=== PATIENT | female | born 1960 | race Caucasian/White ===

== ENCOUNTER → 2017-04-13 | Outpatient (CLI) | payer MEDICAID ==
[~2017-04-13] MED LIST: ACLI400A IH; ALBU8.5H2 IH; ALPR.25T PO; ALPR0.5T PO; BUDE6HFA IH; CLOT15CR4 TOP; DESV50TA PO; DIAZ5TAB PO; FLC150T PO; GING1POW MC; GLIM2TAB PO; HYDR-1231 PO; HYDR-34 PO; HYDR118S10 PO; HYDR25TA4 PO; LISI10TA2 PO; LORA10TA7 PO; LSNP10T PO; METF-380 PO; PRD20T PO; PRED5TAB PO; RANI150C11 PO; RANI75TA30 PO; TMZP15C GT; VALA100033 PO
--- NOTE | 2017-04-13 19:41 | Diagnostic Imaging Report ---
Bilateral screening mammogram. The current study was also evaluated with a Computer Aided Detection (CAD) system. INDICATION: Screening. No current complaints stated on the questionnaire. COMPARISON: 03/03/2015 and other prior exams. FINDINGS: The breasts are composed of scattered fibroglandular densities. There are central bilateral subcentimeter breast nodules with circumscribed margins similar to prior exams seen. These are likely related to intramammary lymph nodes. Benign-appearing calcifications are seen minimally increased compared to prior exam. No developing mass or suspicious cluster of calcifications seen, however. IMPRESSION: No mammographic evidence of malignancy. ACR BI-RADS Category 2: Benign findings. Result letter will be mailed to the patient. Note: At least 10% of breast cancer is not imaged by mammography. Dictated by: Dictated on workstation # [id number]
== END ==
LOC: RAD 09:52
PROVIDERS: ATTEND Nurse Practitioner Family
DX: Z12.31 Encounter for screening mammogram for malignant neoplasm of breast (principal)
CPT/HCPCS: 77067

== ENCOUNTER 2017-08-23 12:16 | Outpatient (RCR) | payer MEDICAID ==
[2017-08-23 12:53] LABS: BASOPHILS # (AUTO) 0.1 10^3/uL (0.0-0.1); BASOPHILS % (AUTO) 1 % (0-10); EOSINOPHILS # (AUTO) 0.2 10^3/uL (0.0-0.3); EOSINOPHILS % (AUTO) 2 % (0-10); LYMPHOCYTES # (AUTO) 3.5 X 10^3 (1.0-4.0); LYMPHOCYTES % (AUTO) 32 % (12-44); MEAN CORPUSCULAR HEMOGLOBIN 30 PG (25-34); MEAN CORPUSCULAR HGB CONC 32 G/DL (32-36); MEAN CORPUSCULAR VOLUME 96 FL (80-99); MEAN PLATELET VOLUME 10.2 FL (7.4-10.4); MONOCYTES # (AUTO) 0.8 X 10^3 (0.0-1.0); MONOCYTES % (AUTO) 7 % (0-12); NEUTROPHILS # (AUTO) 6.5 X 10^3 (1.8-7.8); NEUTROPHILS % (AUTO) 59 % (42-75); PLATELET COUNT 312 10^3/uL (130-400); RED BLOOD COUNT 3.98 10^6/uL (4.35-5.85); RED CELL DISTRIBUTION WIDTH 13.8 % (10.0-14.5)
[2017-08-23 13:10] LABS: ALANINE AMINOTRANSFERASE 39 U/L (0-55); ALBUMIN 3.9 GM/DL (3.2-4.5); ANION GAP 9 MMOL/L (5-14); ASPARTATE AMINO TRANSFERASE 21 U/L (5-34); BILIRUBIN,TOTAL 0.2 MG/DL (0.1-1.0); BLOOD UREA NITROGEN 10 MG/DL (7-18); BUN/CREATININE RATIO 11; CALCIUM 9.7 MG/DL (8.5-10.1); CARBON DIOXIDE 28 MMOL/L (21-32); CHLORIDE 101 MMOL/L (98-107); CREATININE SERUM 0.89 MG/DL (0.60-1.30); GFR ESTIMATED > 60; GLUCOSE 325 MG/DL (70-105); POTASSIUM 3.8 MMOL/L (3.6-5.0); SODIUM 138 MMOL/L (135-145); TOTAL PROTEIN 7.2 GM/DL (6.4-8.2)
== END 2017-08-26 | disposition home or self-care (01) ==
LOC: ONC 12:16
PROVIDERS: ATTEND Internal Medicine Hematology & Oncology
DX: D72.829 Elevated white blood cell count, unspecified (principal); B19.20 Unspecified viral hepatitis C without hepatic coma; E66.01 Morbid (severe) obesity due to excess calories; Z68.42 Body mass index [BMI] 45.0-49.9, adult; I10 Essential (primary) hypertension; E11.9 Type 2 diabetes mellitus without complications; J44.9 Chronic obstructive pulmonary disease, unspecified; M19.91 Primary osteoarthritis, unspecified site; K21.9 Gastro-esophageal reflux disease without esophagitis; M79.7 Fibromyalgia; F41.9 Anxiety disorder, unspecified; F32.9 Major depressive disorder, single episode, unspecified; Z79.899 Other long term (current) drug therapy
CPT/HCPCS: 36415; 80053; 85025; 99214

== ENCOUNTER → 2017-09-14 | Outpatient (CLI) | payer MEDICAID ==
--- NOTE | 2017-09-14 16:33 | Diagnostic Imaging Report ---
Two views of the right hip. INDICATION: Right hip pain. FINDINGS: There is no fracture, dislocation or radiopaque foreign body. There is a kwaaqbha-vb-ovpnpn joint space narrowing with prominent osteophytes formation. Subchondral stenosis is also seen. The right SI joint demonstrates minimal degenerative changes. IMPRESSION: Vscyammm-gi-gsldelbo right hip osteoarthritis. Dictated by: Dictated on workstation # [id number]
--- NOTE | 2017-09-14 18:13 | Diagnostic Imaging Report ---
Three views of the right knee. INDICATION: Right knee pain. FINDINGS: Prominent osteophyte formation is seen in the three compartments but more prominent in the medial compartment. There is no significant joint space narrowing identified. No fracture or dislocation. No suprapatellar effusion is evident. IMPRESSION: Moderate degenerative changes. Dictated by: Dictated on workstation # [id number]
== END ==
LOC: RAD 15:26
DX: M16.11 Unilateral primary osteoarthritis, right hip (principal); M17.11 Unilateral primary osteoarthritis, right knee
CPT/HCPCS: 73502; 73562

== ENCOUNTER → 2018-04-17 | Outpatient (CLI) | payer MEDICAID ==
--- NOTE | 2018-04-17 19:00 | Diagnostic Imaging Report ---
INDICATION: Routine screening. Comparison is made with prior study from 04/13/2017 and 03/16/2016. 2-D and 3-D bilateral screening mammography was performed with CAD. The current study was also evaluated with a Computer Aided Detection (CAD) system. FINDINGS: Scattered fibroglandular densities are identified bilaterally. There are benign-appearing calcifications bilaterally. Circumscribed benign-appearing nodular densities appear stable bilaterally. No spiculated mass or malignant-appearing microcalcifications are seen. The axillae are unremarkable. IMPRESSION: No mammographic features suspicious for malignancy are identified. ACR BI-RADS Category 2: Benign findings. Result letter will be mailed to the patient. Note: At least 10% of breast cancer is not imaged by mammography. Dictated by: Dictated on workstation # [id number]
== END ==
LOC: RAD 08:02
PROVIDERS: ATTEND Nurse Practitioner Family
DX: Z12.31 Encounter for screening mammogram for malignant neoplasm of breast (principal)
CPT/HCPCS: 77067

== ENCOUNTER → 2019-03-27 | Outpatient (CLI) | payer MEDICARE, MEDICAID ==
[~2019-03-27] VITALS: Ht 160 cm; Wt 104.3 kg
[~2019-03-27] MED LIST changes: +BUDE10.2 IH; +DIAZ2TAB PO; +HYDR-3812 PO; +LISI40TA PO; +METF-399 PO; +PANT40TA2 PO; +RT-ALBUINH IH
== END | disposition home or self-care (01) ==
LOC: PREOP 05:57
PROVIDERS: ATTEND Surgery
DX: Z01.818 Encounter for other preprocedural examination (principal)

== ENCOUNTER 2019-03-29 08:55 | Day surgery (SDC) | payer MEDICARE, MEDICAID ==
[~2019-03-29] VITALS: Ht 160 cm; Wt 104.3 kg
[~2019-03-29 08:55] MED LIST changes: -PANT40TA2 PO
--- OUTSIDE RECORDS SUMMARY | 2019-03-29 08:59 | XMS REPORT ---
Author Author Migration, Doctor Organization [facility] Address Unknown Phone Unavailable Care Team Providers Care Armored Car Driver Name Role Phone Migration, Doctor Unavailable Unavailable PROBLEMS Type Condition ICD9-CM Code [id number] Code Onset Dates Condition Status SNOMED Code Problem Other specified counseling V65.49 Active 636633225 Problem Unspecified breast screening V76.10 Active 751774737 Problem Routine gynecological examination V72.31 Active [id number] Problem Counseling on substance use and abuse V65.42 Active 106746291 Problem Urinary tract infection, site not specified 599.0 Active 77849714 Problem Other specified symptom associated with female genital organs 625.8 Active 744710435 Problem Cough 786.2 Active 85926088 Problem Abdominal pain, unspecified site 789.00 Active 58983406 Problem Pain in joint, site unspecified 719.40 Active 10844423 Problem Pain in joint, lower leg 719.46 Active 980658170 Problem Dyschromia, unspecified 709.00 Active 1533371 Problem Generalized osteoarthrosis, unspecified site 715.00 Active 850322961 Problem Unspecified symptom associated with female genital organs 625.9 Active 330038870 Problem Effusion of joint, other specified site 719.08 Active 137002733 Problem Blood in stool 578.1 Active 238354279 Problem Acute pharyngitis 462 Active 036139323 Problem Acute sinusitis, unspecified 461.9 Active 77323668 Problem Candidiasis of vulva and vagina 112.1 Active 31026534 Problem Tear of medial cartilage or meniscus of knee, current 836.0 Active 061034304 Problem Chronic hepatitis C without mention of hepatic coma 070.54 Active 303482386 Problem Other, multiple, and unspecified sites, insect bite, nonvenomous, without mention of infection 919.4 Active 280429067 Problem Elevated blood pressure reading without diagnosis of hypertension 796.2 Active 166567006 Problem External hemorrhoids without mention of complication 455.3 Active 85608252 Problem Essential hypertension, malignant 401.0 Active 60218958 Problem Unspecified otalgia 388.70 Active 56374555 Problem Dysmetabolic Syndrome X 277.7 Active 758305939 ALLERGIES No Information ENCOUNTERS Encounter Location Date Diagnosis [facility] [id number] [place] [address]853- 6833 Apr, [facility] [id number] [place] [address] 32208- 7884 Feb, [facility] [address] [address]- [address] Feb, [facility] [id number] [place] [address] 63722- 2927 Nov, [facility] [id number] [place] [address] 28649- 5200 Nov, [facility] [id number] [place] [address] 76447- 3889 Oct, [facility] [id number] [place] [address] 27948- 8815 Oct, [facility] [id number] [place] [address] 54515- 8397 Sep, [facility] [id number] [place] [address] 55352- 6620 Sep, [facility] [id number] [place] [address] 96661- 6883 Aug, [facility] [id number] [place] [address] 60838- 6375 Aug, [facility] [id number] [place] [address] 45945- 0450 Aug, [facility] [id number] [place] [address] 17645- 1959 Aug, [facility] [id number] [place] [address] 33752- 8771 Aug, [facility] [id number] [place] [address] 86476- 6058 Aug, [facility] [place] [facility] [address] [id number] [place] [address] 7193 Jun, [facility] [place] [facility] [address] [id number] [place] [address]- 6091 Jun, [facility] [place] [facility] [address] [id number] [place] [address]- 1542 Jun, [facility] [place] [facility] [address] [id number] [place] [address]- 9449 Jun, [facility] [place] [facility] [address] [id number] [place] [address]- 5751 Jun, [facility] [place] [facility] [address] [id number] [place] [address]- 7726 May, [facility] [place] [facility] [address] [id number] [place] [address]- 4437 May, [facility] [place] [facility] [address] [id number] [place] [address]- 2771 May, [facility] [place] [facility] [address] [id number] [place] [address]- 0770 May, [facility] [place] [facility] [address] [id number] [place] [address]- 1321 May, [facility] [place] [facility] [address] [id number] [place] [address]- 0772 May, [facility] [place] [facility] [address] [id number] [place] [address]- 0238 May, [facility] [place] [facility] [address] [id number] [place] [address]- 1192 May, [facility] [place] [facility] [address] [id number] [place] [address]- 3603 May, [facility] [place] [facility] [address] [id number] [place] [address]- 3887 May, [facility] [place] [facility] [address] [id number] [place] [address]- 1496 May, [facility] [address] [id number] [place] [address]- 0811 May, [facility] [place] [facility] [address] [id number] [place] [address]- 5415 May, [facility] [place] [facility] [address] [id number] [place] [address]- 9969 May, [facility] [place] [facility] [address] [id number] [place] [address]- 7291 Apr, [facility] [place] [facility] [address] [id number] [place] [address]- 3853 Apr, [facility] [place] [facility] [address] [id number] [place] [address]- 2538 Apr, [facility] [address] [id number] [place] [address]- 4219 Apr, [facility] [address] [id number] [place] [address]- 8160 March, [facility] [place] [facility] [address] [id number] [place] [address]- 0317 March, [facility] [address] [id number] [place] [address]- 3977 March, [facility] [place] [facility] [address] [id number] [place] [address]- 1713 March, [facility] [place] [facility] [address] [id number] [place] [address]- 7466 March, [facility] [place] [facility] [address] [id number] [place] [address]- 5537 March, [facility] [place] [facility] [address] [id number] [place] [address]- 9114 March, [facility] [place] [facility] [address] [id number] [place] [address]- 9475 March, [facility] [address] [id number] [place] [address]- 5753 March, [facility] [place] [facility] [address] [id number] [place] [address]- 3411 March, [facility] [place] [facility] [address] [id number] [place] [address]- 8872 March, [facility] [place] [facility] [address] [id number] [place] [address]- 9325 March, [facility] [place] [facility] [address] [id number] [place] [address] March, [facility] [place] [facility] [address] [id number] [place] [address]- 3337 March, [facility] [place] [facility] [address] [id number] [place] [address]- 8920 Feb, [facility] [place] [facility] [address] [id number] [place] [address]- 2944 Feb, [facility] [place] [facility] [address] [id number] [place] [address]- 6421 Feb, [facility] [place] [facility] [address] [id number] [place] [address]- 9533 Feb, [facility] [place] [facility] [address] [id number] [place] [address]- 0325 Feb, [facility] [place] [facility] [address] [id number] [place] [address]- 4107 Feb, [facility] [place] [facility] [address] [id number] [place] [address]- 6317 Jan, [facility] [place] [facility] [address] [id number] [place] [address] Jan, [facility] [place] [facility] [address] [id number] [place] [address]- 0230 Jan, [facility] [place] [facility] [address] [id number] [place] [address]- 8735 Jan, [facility] [place] [facility] [address] [id number] [place] [address]- 1642 Jan, [facility] [place] [facility] [address] [facility] [id number] [place] [address]- 4811 Jan, [facility] [place] [facility] [address] [facility] [id number] [place] [address]- 4780 Jan, [facility] [place] [facility] [address] [id number] [place] [address]- 1828 Jan, [facility] [place] [facility] [address] [id number] [place] [address]- 1591 Dec, [facility] [place] [facility] [address] [facility] [id number] [place] [address]- 2612 Dec, [facility] [place] [facility] [address] [facility] [id number] [place] [address]- 7103 Dec, [facility] [place] [facility] [address] [facility] [id number] [place] [address]- 8504 Dec, [facility] [place] [facility] [address] [facility] [id number] [place] [address]- 5199 Dec, [facility] [place] [facility] [address] [facility] [id number] [place] [address]- 8162 Dec, [facility] [place] [facility] [address] [facility] [id number] [place] [address]- 3700 Dec, [facility] [place] [facility] [address] [facility] [id number] [place] [address]- 2092 Dec, [facility] [place] [facility] [address] [facility] [id number] [place] [address]- 4821 Dec, [facility] [place] [facility] [address] [facility] [id number] [place] [address]- 0737 Dec, [facility] [place] [facility] [address] [facility] [id number] [place] [address]- 3628 Dec, [facility] [place] [facility] [address] [id number] [place] [address]- 6077 Dec, [facility] [place] [facility] [address] [id number] [place] [address]- 8977 Dec, [facility] [place] [facility] [address] [id number] [place] [address]- 8986 Nov, [facility] [place] [facility] [address] [id number] [place] [address]- 5513 Nov, [facility] [place] [facility] [address] [id number] [place] [address]- 3884 Nov, [facility] [place] [facility] [address] [id number] [place] [address]- 4739 Nov, [facility] [place] [facility] [address] [id number] [place] [address]- 8017 Nov, [facility] [place] [facility] [address] [id number] [place] [address]- 1723 Nov, [facility] [place] [facility] [address] [id number] [place] [address]- 0783 Nov, [facility] [place] [facility] [address] [id number] [place] [address]- 3845 Sep, [facility] [place] [facility] [address] [id number] [address]- 5638 Sep, [facility] [place] [facility] [address] [id number] [address]- 1689 Aug, [facility] [place] [facility] [address] [id number] [place] [address]- 8787 Aug, [facility] [place] [facility] [address] [id number] [place] [address]- 6204 Feb, [facility] [place] [facility] [address] [id number] [place] [address]- 0515 Dec, [facility] [place] [facility] [address] [id number] [address]- 6218 Dec, [facility] [id number] [address]- 8839 Nov, [facility] [id number] [address]- 5277 Sep, [facility] [id number] [address]- 6530 Sep, [facility] [id number] [address]- 9479 Aug, [facility] [id number] [place] [address] 47180- 1016 Aug, [facility] [address] [address]- 6624 March, [facility] [address] [address]- 9781 Aug, [facility] [address] [address]- 0142 Aug, IMMUNIZATIONS No Known Immunizations SOCIAL HISTORY Never Assessed REASON FOR VISIT EMR[place] [place]AN OF CARE VITAL SIGNS MEDICATIONS Unknown Medications RESULTS No Results PROCEDURES No Known procedures INSTRUCTIONS MEDICATIONS ADMINISTERED No Known Medications
--- OUTSIDE RECORDS SUMMARY | 2019-03-29 08:59 | XMS REPORT ---
Author Author Migration, Doctor Organization [facility] Address Unknown Phone Unavailable Care Team Providers Care Rental Coordinator Name Role Phone Migration, Doctor Unavailable Unavailable PROBLEMS Type Condition ICD9-CM Code SZV69-HQ Code Onset Dates Condition Status SNOMED Code Problem Other specified counseling V65.49 Active 622574603 Problem Unspecified breast screening V76.10 Active 562467226 Problem Routine gynecological examination V72.31 Active [id number] Problem Counseling on substance use and abuse V65.42 Active 775246066 Problem Urinary tract infection, site not specified 599.0 Active 69619010 Problem Other specified symptom associated with female genital organs 625.8 Active 509535036 Problem Cough 786.2 Active 19383309 Problem Abdominal pain, unspecified site 789.00 Active 14536348 Problem Pain in joint, site unspecified 719.40 Active 60571106 Problem Pain in joint, lower leg 719.46 Active 314400922 Problem Dyschromia, unspecified 709.00 Active 1489042 Problem Generalized osteoarthrosis, unspecified site 715.00 Active 921315822 Problem Unspecified symptom associated with female genital organs 625.9 Active 657667423 Problem Effusion of joint, other specified site 719.08 Active 760531850 Problem Blood in stool 578.1 Active 368470590 Problem Acute pharyngitis 462 Active 433607686 Problem Acute sinusitis, unspecified 461.9 Active 45748423 Problem Candidiasis of vulva and vagina 112.1 Active 60389726 Problem Tear of medial cartilage or meniscus of knee, current 836.0 Active 378201607 Problem Chronic hepatitis C without mention of hepatic coma 070.54 Active 584165656 Problem Other, multiple, and unspecified sites, insect bite, nonvenomous, without mention of infection 919.4 Active 809528800 Problem Elevated blood pressure reading without diagnosis of hypertension 796.2 Active 666321371 Problem External hemorrhoids without mention of complication 455.3 Active 32853849 Problem Essential hypertension, malignant 401.0 Active 76017088 Problem Unspecified otalgia 388.70 Active 39797399 Problem Dysmetabolic Syndrome X 277.7 Active 104509797 ALLERGIES No Information ENCOUNTERS Encounter Location Date Diagnosis [facility] [id number] [place] [address] 34905- 9774 Apr, [facility] [id number] [place] [address] 86543- 4939 Feb, [facility] [address] [address]- 6817 Feb, [facility] [id number] [place] [address] 19305- 1900 Nov, [facility] [id number] [place] [address] 60308- 1044 Nov, [facility] [id number] [place] [address] 08928- 7957 Oct, [facility] [id number] [place] [address] 04141- 7007 Oct, [facility] [id number] [place] [address] 34599- 8334 Sep, [facility] [id number] [place] [address] 70808- 1445 Sep, [facility] [id number] [place] [address] 74894- 6384 Aug, [facility] [id number] [place] [address] 45509- 0555 Aug, [facility] [id number] [place] [address] 05062- 7929 Aug, [facility] [id number] [place] [address] 38858- 3899 Aug, [facility] [id number] [place] [address] 99233- 9157 Aug, [facility] [id number] [place] [address] 00707- 2651 Aug, [facility] [place] [facility] [address] [id number] [place] [address] 7321 Jun, [facility] [place] [facility] [address] [id number] [place] [address] 3433 Jun, [facility] [place] [facility] [address] [id number] [place] [address]- 4500 Jun, [facility] [place] [facility] [address] [id number] [place] [address]- 8238 Jun, [facility] [place] [facility] [address] [id number] [place] [address]- 4080 Jun, [facility] [place] [facility] [address] [id number] [place] [address]- 2023 May, [facility] [place] [facility] [address] [id number] [place] [address]- 4735 May, [facility] [place] [facility] [address] [id number] [place] [address]- 6482 May, [facility] [place] [facility] [address] [id number] [place] [address]- 4923 May, [facility] [place] [facility] [address] [id number] [place] [address]- 6568 May, [facility] [place] [facility] [address] [id number] [place] [address]- 9461 May, [facility] [place] [facility] [address] [id number] [place] [address]- 4889 May, [facility] [place] [facility] [address] [id number] [place] [address]- 3083 May, [facility] [place] [facility] [address] [id number] [place] [address]- 2504 May, [facility] [place] [facility] [address] [id number] [place] [address]- 3235 May, [facility] [place] [facility] [address] [id number] [place] [address]- 5237 May, [facility] [address] [id number] [place] [address]- 0156 May, [facility] [place] [facility] [address] [id number] [place] [address]- 8943 May, [facility] [place] [facility] [address] [id number] [place] [address]- 2941 May, [facility] [place] [facility] [address] [id number] [place] [address]- 3101 Apr, [facility] [place] [facility] [address] [id number] [place] [address]- 3675 Apr, [facility] [place] [facility] [address] [id number] [place] [address]- 3887 Apr, [facility] [address] [id number] [place] [address]- 5047 Apr, [facility] [address] [id number] [place] [address]- 0789 March, [facility] [place] [facility] [address] [id number] [place] [address]- 2748 March, [facility] [address] [id number] [place] [address]- 6312 March, [facility] [place] [facility] [address] [id number] [place] [address]- 5174 March, [facility] [place] [facility] [address] [id number] [place] [address]- 9957 March, [facility] [place] [facility] [address] [id number] [place] [address]- 4143 March, [facility] [place] [facility] [address] [id number] [place] [address]- 8638 March, [facility] [place] [facility] [address] [id number] [place] [address]- 3026 March, [facility] [address] [id number] [place] [address]- 9097 March, [facility] [place] [facility] [address] [id number] [place] [address]- 8891 March, [facility] [place] [facility] [address] [id number] [place] [address]- 7435 March, [facility] [place] [facility] [address] [id number] [place] [address]- 5495 March, [facility] [place] [facility] [address] [id number] [place] [address] March, [facility] [place] [facility] [address] [id number] [place] [address]- 9346 March, [facility] [place] [facility] [address] [id number] [place] [address]- 8688 Feb, [facility] [place] [facility] [address] [id number] [place] [address]- 9807 Feb, [facility] [place] [facility] [address] [id number] [place] [address]- 3251 Feb, [facility] [place] [facility] [address] [id number] [place] [address]- 1867 Feb, [facility] [place] [facility] [address] [id number] [place] [address]- 4445 Feb, [facility] [place] [facility] [address] [id number] [place] [address]- 2764 Feb, [facility] [place] [facility] [address] [id number] [place] [address]- 2663 Jan, [facility] [place] [facility] [address] [id number] [place] 7966 Jan, [facility] [place] [facility] [address] [id number] [place] [address]- 0182 Jan, [facility] [place] [facility] [address] [id number] [place] [address]- 4403 Jan, [facility] [place] [facility] [address] [id number] [place] [address]- 6962 Jan, [facility] [place] [facility] [address] [facility] [id number] [place] [address]- 5962 Jan, [facility] [place] [facility] [address] [facility] [id number] [place] [address]- 9821 Jan, [facility] [place] [facility] [address] [id number] [place] [address]- 7607 Jan, [facility] [place] [facility] [address] [id number] [place] [address]- 8892 Dec, [facility] [place] [facility] [address] [facility] [id number] [place] [address]- 4518 Dec, [facility] [place] [facility] [address] [facility] [id number] [place] [address]- 1979 Dec, [facility] [place] [facility] [address] [facility] [id number] [place] [address]- 4544 Dec, [facility] [place] [facility] [address] [facility] [id number] [place] [address]- 9245 Dec, [facility] [place] [facility] [address] [facility] [id number] [place] [address]- 6990 Dec, [facility] [place] [facility] [address] [facility] [id number] [place] [address]- 9420 Dec, [facility] [place] [facility] [address] [facility] [id number] [place] [address]- 2727 Dec, [facility] [place] [facility] [address] [facility] [id number] [place] [address]- 9002 Dec, [facility] [place] [facility] [address] [facility] [id number] [place] [address]- 6372 Dec, [facility] [place] [facility] [address] [facility] [id number] [place] [address]- 1644 Dec, [facility] [place] [facility] [address] [id number] [place] [address]- 7189 Dec, [facility] [place] [facility] [address] [id number] [place] [address]- 9629 Dec, [facility] [place] [facility] [address] [id number] [place] [address]- 1253 Nov, [facility] [place] [facility] [address] [id number] [place] [address]- 6259 Nov, [facility] [place] [facility] [address] [id number] [place] [address]- 6585 Nov, [facility] [place] [facility] [address] [id number] [place] [address]- 8700 Nov, [facility] [place] [facility] [address] [id number] [place] [address]- 9019 Nov, [facility] [place] [facility] [address] [id number] [place] [address]- 4119 Nov, [facility] [place] [facility] [address] [id number] [place] [address]- 6747 Nov, [facility] [place] [facility] [address] [id number] [place] [address]- 2127 Sep, [facility] [place] [facility] [address] [id number] [address]- 7953 Sep, [facility] [place] [facility] [address] [id number], [place] [address]- 4827 Aug, [facility] [place] [facility] [address] [id number] [place] [address]- 7816 Aug, [facility] [place] [facility] [address] [id number] [place] [address]- 0291 Feb, [facility] [place] [facility] [address] [id number] [place] [address]- 3336 Dec, [facility] [place] [facility] [address] [id number] [address]- 7251 Dec, [facility] [id number] [address]- 7940 Nov, [facility] [id number] [address]- 3097 Sep, [facility] [id number] [address]- 5563 Sep, [facility] [id number] [address]- 7583 Aug, [facility] [id number] [place] [address] 26586- 8447 Aug, [facility] [id number] [address]- 5316 March, [facility] [id number] [address]- 6188 Aug, [facility] [address] [address]- 9905 Aug, IMMUNIZATIONS No Known Immunizations SOCIAL HISTORY Never Assessed REASON FOR VISIT EMR-[facility] [place] PLAN OF CARE VITAL SIGNS MEDICATIONS Unknown Medications RESULTS No Results PROCEDURES No Known procedures INSTRUCTIONS MEDICATIONS ADMINISTERED No Known Medications
--- OUTSIDE RECORDS SUMMARY | 2019-03-29 08:59 | XMS REPORT | Clinical Summary ---
Author Author [facility] Organization [facility] Address Unknown Phone Unavailable Care Team Providers Care Catalyst Supervisor Name Role Phone Darrell Duran MD Unavailable Luis Carlton MD PCP Pat Morfin RN Unavailable Unavailable Vivi Cunningham Unavailable Unavailable Source Comments Some departments are not documenting in the electronic medical record. If you do not see the information that you expected, contact Release of Information in the Health Information Management department at [phone] for further assistance in locating additional records.[facility] Allergies No Known Allergies Medications End Date Status Medication Sig Dispensed Refills Start Date Active diazepam (VALIUM) 5 mg Take 5 mg by 0 tablet mouth every 6 hours as needed for Anxiety. Active ondansetron (ZOFRAN) 8 mg Take 8 mg by 0 tablet mouth every 8 hours as needed for Nausea. Active montelukast (SINGULAIR) Take 10 mg by 0 10 mg tablet mouth at bedtime daily. Active lisinopril (PRINIVIL, Take 40 mg by 0 ZESTRIL) 40 mg tablet mouth daily. Active glimepiride (AMARYL) 4 mg Take 4 mg by 0 tablet mouth daily with breakfast. Active albuterol (VENTOLIN HFA, Inhale 2 0 PROAIR HFA) 90 Puffs by mcg/actuation inhaler mouth every 6 hours as needed for Wheezing. Active metFORMIN (GLUCOPHAGE) Take 1,000 mg 0 1,000 mg tablet by mouth twice daily with meals. Active ranitidine(+) (ZANTAC) Take 150 mg 0 150 mg tablet by mouth twice daily. Active BUDESONIDE/FORMOTEROL Inhale by 0 FUMARATE (SYMBICORT IN) mouth into the lungs. Active sofosbuvir-velpatasvir Take 1 tablet 28 tablet 2 06/11/201 (EPCLUSA) 400-100 mg by mouth 8 tablet daily. Take at the same time everyday. Active lactobacillus rhamnosus Take 1 0 GG (LACTOBACILLUS capsule by RHAMNOSUS (GG)) 15 mouth as billion cell cpSP capsule directed once. Active vitamin E 400 unit Take 400 0 capsule Units by mouth daily. Active oxyCODONE/acetaminophen Take 1 tablet 0 (PERCOCET; ENDOCET) by mouth 10/325 mg tablet every 6 hours as needed for Pain Active niacin (VITAMIN B3) 100 Take 100 mg 0 mg tablet by mouth daily. Take with food. Active hydroCHLOROthiazide Take 25 mg by 0 (HYDRODIURIL) 25 mg mouth every tablet morning. Active fluticasone (FLONASE) 50 Apply to 0 mcg/actuation nasal spray each nostril as directed daily. Shake bottle gently before using. Active tiotropium bromide Inhale 2 0 (SPIRIVA RESPIMAT) 1.25 puffs by mcg/actuation inhaler mouth into the lungs daily. Active Problems Problem Noted Date Type 2 diabetes mellitus Morbid obesity with BMI of 45.0-49.9, adult COPD (chronic obstructive pulmonary disease) Chronic hepatitis C Overview: Genotype 3 with F2/3 fibrosis based on elastography Social History Date Tobacco Use Types Packs/Day Years Used Former Smoker Cigarettes 0.3 20 Smokeless Tobacco: Never Used Alcohol Use Drinks/Week oz/Week Comments No 0 Standard 0.0 drinks or equivalent Sex Assigned at Date Recorded Not on file Industry Job Start Date Occupation Not on file Not on file Not on file Travel End Travel History Travel Start No recent travel history available. Last Filed Vital Signs Time Taken Vital Sign Reading 07/18/2018 1:45 PM CDT Blood Pressure 126/81 07/18/2018 1:45 PM CDT Pulse 111 07/18/2018 1:45 PM CDT Temperature 37.3 C (99.2 F) 07/18/2018 1:45 PM CDT Respiratory Rate 18 07/18/2018 1:45 PM CDT Oxygen Saturation 99% - Inhaled Oxygen - Concentration 07/18/2018 1:45 PM CDT Weight 111.1 kg (245 lb) 07/18/2018 1:45 PM CDT Height 160 cm (5' 3") 07/18/2018 1:45 PM CDT Body Mass Index 43.4 Plan of Treatment Health Maintenance Due Date Last Done Comments PHYSICAL (COMPREHENSIVE) 1967 EXAM HIV SCREENING 1975 DILATED EYE EXAM 1978 DTAP/TDAP VACCINES (1 - 1978 Tdap) FOOT EXAM 1978 HBA1C 1978 PNEUMONIA VACCINE (DM) 1978 CERVICAL CANCER SCREENING 1990 BREAST CANCER SCREENING 2000 COLORECTAL CANCER 2010 SCREENING SHINGLES RECOMBINANT 2010 VACCINE (1 of 2) INFLUENZA VACCINE 08/27/2019 09/18/2008, 09/17/2007, 10/27/2003 Results Not on filefrom Last 3 Months Insurance Type Payer Benefit Subscriber ID Effective Phone Address Plan / Dates Group Medicare MEDICARE MEDICARE xxxxxxxxxx 2018-P PART A AND resent B Medicaid [facility] MEDICAID [facility] xxxxxxxxxxx 2015-P COMMUNITY resent PLAN [place] Advance Directives Patient has advance care planning documents on file. For more information, please contact: [facility] [address] [place] [address]
--- OUTSIDE RECORDS SUMMARY | 2019-03-29 09:00 | XMS REPORT ---
Author Author Migration, Doctor Organization [facility] Address Unknown Phone Unavailable Care Team Providers Care Volunteer Services Assistant Name Role Phone Migration, Doctor Unavailable Unavailable PROBLEMS Type Condition ICD9-CM Code ODB72-OE Code Onset Dates Condition Status SNOMED Code Problem Other specified counseling V65.49 Active 805610800 Problem Unspecified breast screening V76.10 Active 357413970 Problem Routine gynecological examination V72.31 Active [id number] Problem Counseling on substance use and abuse V65.42 Active 300429180 Problem Urinary tract infection, site not specified 599.0 Active 28098378 Problem Other specified symptom associated with female genital organs 625.8 Active 635925885 Problem Cough 786.2 Active 36853414 Problem Abdominal pain, unspecified site 789.00 Active 50078353 Problem Pain in joint, site unspecified 719.40 Active 28246453 Problem Pain in joint, lower leg 719.46 Active 200331684 Problem Dyschromia, unspecified 709.00 Active 4887003 Problem Generalized osteoarthrosis, unspecified site 715.00 Active 388669240 Problem Unspecified symptom associated with female genital organs 625.9 Active 660685660 Problem Effusion of joint, other specified site 719.08 Active 654122887 Problem Blood in stool 578.1 Active 555907379 Problem Acute pharyngitis 462 Active 666485668 Problem Acute sinusitis, unspecified 461.9 Active 09081381 Problem Candidiasis of vulva and vagina 112.1 Active 19124189 Problem Tear of medial cartilage or meniscus of knee, current 836.0 Active 665801718 Problem Chronic hepatitis C without mention of hepatic coma 070.54 Active 785676820 Problem Other, multiple, and unspecified sites, insect bite, nonvenomous, without mention of infection 919.4 Active 311849866 Problem Elevated blood pressure reading without diagnosis of hypertension 796.2 Active 110833962 Problem External hemorrhoids without mention of complication 455.3 Active 81974852 Problem Essential hypertension, malignant 401.0 Active 62041253 Problem Unspecified otalgia 388.70 Active 35930176 Problem Dysmetabolic Syndrome X 277.7 Active 739751035 ALLERGIES No Information ENCOUNTERS Encounter Location Date Diagnosis [facility] [place] [id number] [place] [address] 78298- 9499 Apr, [facility] [place] [id number] [place] [address] 08232- 6396 Feb, [facility] [place] [address] [address]- [address] Feb, [facility] [place] [id number] [place] [address] 27349- 1729 Nov, [facility] [place] [id number] [place] [address] 35573- 3541 Nov, [facility] [place] [id number] [place] [address] 64253- 6672 Oct, [facility] [place] [id number] [place] [address] 17714- 8063 Oct, [facility] [place] [id number] [place] [address] 43743- 9658 Sep, [facility] [place] [id number] [place] [address] 45647- 8510 Sep, [facility] [place] [id number] [place] [address] 69308- 3887 Aug, [facility] [place] [id number] [place] [address] 51002- 8757 Aug, [facility] [place] [id number] [place] [address] 22946- 3480 Aug, [facility] [place] [id number] [place] [address] 97785- 1737 Aug, [facility] [place] [id number] [place] [address] 66151- 9144 Aug, [facility] [place] [id number] [place] [address] 87597- 8229 Aug, [facility] [place] [facility] [address] [id number] [place] [address] 3033 Jun, [facility] [place] [facility] [address] [id number] [place] [address]- 2772 Jun, [facility] [place] [facility] [address] [id number] [place] [address]- 0394 Jun, [facility] [place] [facility] [address] [id number] [place] [address]- 1659 Jun, [facility] [place] [facility] [address] [id number] [place] [address]- 9730 Jun, [facility] [place] [facility] [address] [id number] [place] [address]- 7116 May, [facility] [place] [facility] [address] [id number] [place] [address]- 4643 May, [facility] [place] [facility] [address] [id number] [place] [address]- 8877 May, [facility] [place] [facility] [address] [id number] [place] [address]- 3982 May, [facility] [place] [facility] [address] [id number] [place] [address]- 5868 May, [facility] [place] [facility] [address] [id number] [place] [address]- 7344 May, [facility] [place] [facility] [address] [id number] [place] [address]- 1217 May, [facility] [place] [facility] [address] [id number] [place] [address]- 3249 May, [facility] [place] [facility] [address] [id number] [place] [address]- 2138 May, [facility] [place] [facility] [address] [id number] [place] [address]- 3035 May, [facility] [place] [facility] [address] [id number] [place] [address]- 4143 May, [facility] [address] [id number] [place] [address]- 8274 May, [facility] [place] [facility] [address] [id number] [place] [address]- 1797 May, [facility] [place] [facility] [address] [id number] [place] [address]- 1197 May, [facility] [place] [facility] [address] [id number] [place] [address]- 2523 Apr, [facility] [place] [facility] [address] [id number] [place] [address]- 3903 Apr, [facility] [place] [facility] [address] [id number] [place] [address]- 6268 Apr, [facility] [address] [id number] [place] [address]- 8977 Apr, [facility] [address] [id number] [place] [address]- 7292 March, [facility] [place] [facility] [address] [id number] [place] [address]- 9898 March, [facility] [address] [id number] [place] [address]- 3922 March, [facility] [place] [facility] [address] [id number] [place] [address]- 1066 March, [facility] [place] [facility] [address] [id number] [place] [address]- 1066 March, [facility] [place] [facility] [address] [id number] [place] [address]- 1601 March, [facility] [place] [facility] [address] [id number] [place] [address]- 4746 March, [facility] [place] [facility] [address] [id number] [place] [address]- [address] March, [facility] [address] [id number] [place] [address]- 6828 March, [facility] [place] [facility] [address] [id number] [place] [address]- 9956 March, [facility] [place] [facility] [address] [id number] [place] [address]- 3479 March, [facility] [place] [facility] [address] [id number] [place] [address]- 9266 March, [facility] [place] [facility] [address] [id number] [place] [address] March, [facility] [place] [facility] [address] [id number] [place] [address]- 9243 March, [facility] [place] [facility] [address] [id number] [place] [address]- 8676 Feb, [facility] [place] [facility] [address] [id number] [place] [address]- 5419 Feb, [facility] [place] [facility] [address] [id number] [place] [address]- 9805 Feb, [facility] [place] [facility] [address] [id number] [place] [address]- 9473 Feb, [facility] [place] [facility] [address] [id number] [place] [address]- 2918 Feb, [facility] [place] [facility] [address] [id number] [place] [address]- 6883 Feb, [facility] [place] [facility] [address] [id number] [place] [address]- 9300 Jan, [facility] [place] [facility] [address] [id number] [place] [address] Jan, [facility] [place] [facility] [address] [id number] [place] [address]- 2677 Jan, [facility] [place] [facility] [address] [id number] [place] [address]- 7376 Jan, [facility] [place] [facility] [address] [id number] [place] [address]- 1462 Jan, [facility] [place] [facility] [address] [facility] [id number] [place] [address]- 3172 Jan, [facility] [place] [facility] [address] [facility] [id number] [place] [address]- 4481 Jan, [facility] [place] [facility] [address] [id number] [place] [address]- 0861 Jan, [facility] [place] [facility] [address] [id number] [place] [address]- 8038 Dec, [facility] [place] [facility] [address] [facility] [id number] [place] [address]- 6683 Dec, [facility] [place] [facility] [address] [facility] [id number] [place] [address]- 2143 Dec, [facility] [place] [facility] [address] [facility] [id number] [place] [address]- 1144 Dec, [facility] [place] [facility] [address] [facility] [id number] [place] [address]- 9198 Dec, [facility] [place] [facility] [address] [facility] [id number] [place] [address]- 0233 Dec, [facility] [place] [facility] [address] [facility] [id number] [place] [address]- 3896 Dec, [facility] [place] [facility] [address] [facility] [id number] [place] [address]- 2387 Dec, [facility] [place] [facility] [address] [facility] [id number] [place] [address]- 9306 Dec, [facility] [place] [facility] [address] [facility] [id number] [place] [address]- 3791 Dec, [facility] [place] [facility] [address] [facility] [id number] [place] [address]- 1175 Dec, [facility] [place] [facility] [address] [id number] [place] [address]- 3752 Dec, [facility] [place] [facility] [address] [id number] [place] [address]- 4399 Dec, [facility] [place] [facility] [address] [id number] [place] [address]- 2099 Nov, [facility] [place] [facility] [address] [id number] [place] [address]- 7221 Nov, [facility] [place] [facility] [address] [id number] [place] [address]- 2193 Nov, [facility] [place] [facility] [address] [id number] [place] [address]- 9401 Nov, [facility] [place] [facility] [address] [id number] [place] [address]- 7283 Nov, [facility] [place] [facility] [address] [id number] [place] [address]- 5852 Nov, [facility] [place] [facility] [address] [id number] [place] [address]- 8707 Nov, [facility] [place] [facility] [address] [id number] [place] [address]- 4244 Sep, [facility] [place] [facility] [address] [id number], [place] [address]- 7668 Sep, [facility] [place] [facility] [address] [id number], [place] [address]- 4657 Aug, [facility] [place] [facility] [address] [id number] [place] [address]- 4267 Aug, [facility] [place] [facility] [address] [id number] [place] [address]- 1405 Feb, [facility] [place] [facility] [address] [id number] [place] [address]- 0397 Dec, [facility] [place] [facility] [address] [id number] [address]- 1654 Dec, [facility] [place] [id number] [address] Nov, [facility] [place] [id number], [place] [address]- 7979 Sep, [facility] [place] [id number], [place] [address]- 0298 Sep, [facility] [place] [id number], [place] [address]- 9832 Aug, [facility] [place] [id number], [place] [address]- 6720 Aug, [facility] [place] [id number], [place] [address]- 3926 March, [facility] [place] [id number], [place] [address]- 3220 Aug, [facility] [place] [address] [id number], [place] [address]- 8064 Aug, IMMUNIZATIONS No Known Immunizations SOCIAL HISTORY Never Assessed REASON FOR VISIT [facility] PLAN OF CARE VITAL SIGNS MEDICATIONS Medication Instructions Dosage Frequency Start Date End Date Duration Status Clotrimazole 1 % 1 appful 1 time per day for 7 day(s) Dec, Active Acidophilus 175 mg 1 capsule by Oral route 2 times per day crush and mix in soft food Aug, Active Pristiq 50 mg take 1 tablet by Oral route 2 times per day March, Active Symbicort 160-4.5 mcg/actuation inhale 2 puffs by inhalation route 2 times per day in the morning and evening March, Active Glimepiride 2 mg take 1 tablet by Oral route 1 time per day Must keep appt for further refills Aug, Active Tudorza Pressair 400 mcg/actuation inhale 1 puff (400 mcg) by inhalation route every 12 hours March, Active Bactrim DS 800-160 mg 1 tablet by Oral route 2 times per day for 7 day(s) Sep, Active Lisinopril 10 mg take 1 tablet by Oral route 1 time per day Must keep appt for further refills Aug, Active Doxycycline Hyclate 100 mg 1 tablet by Oral route 2 times per day for 14 days Feb, Active Ranitidine HCl 150 mg take 1 tablet (150 mg) by oral route 2 times per day May, Active Azithromycin 250 mg 2 Tablet by Oral route on day 1 then take 1 daily for 4 days Dec, Active Xanax 0.5 mg take 1 tablet by Oral route 2 times per day March, Active Ambien 10 mg take 1 tablet by Oral route at bedtime 1 time per day (for female) Aug, Active Ketoconazole 2 % 1 Application by Po route 1 time per day for 10 days Jan, Active Dexilant 60 mg 1 capsule by Oral route 1 time per day May, Active Chlorhexidine Gluconate 4 % apply 1 Liquid by Topical route every 4 days Jun, Active metformin 1,000 mg take 1 tablet by Oral route with morning and evening meals 2 times per day Keep appt for further refills Aug, Active Albuterol Sulfate 90 mcg/actuation inhale 1 puff by inhalation route every 4-6 hours as needed Aug, Active RESULTS No Results PROCEDURES No Known procedures INSTRUCTIONS MEDICATIONS ADMINISTERED No Known Medications
--- OUTSIDE RECORDS SUMMARY | 2019-03-29 09:00 | XMS REPORT ---
Author Author Migration, Doctor Organization [facility] Address Unknown Phone Unavailable Care Team Providers Care Supervisor Building Maintenance Name Role Phone Migration, Doctor Unavailable Unavailable PROBLEMS Type Condition ICD9-CM Code [id number] Code Onset Dates Condition Status SNOMED Code Problem Other specified counseling V65.49 Active 903468920 Problem Unspecified breast screening V76.10 Active 256908583 Problem Routine gynecological examination V72.31 Active [id number] Problem Counseling on substance use and abuse V65.42 Active 215866301 Problem Urinary tract infection, site not specified 599.0 Active 44241377 Problem Other specified symptom associated with female genital organs 625.8 Active 093168367 Problem Cough 786.2 Active 99874114 Problem Abdominal pain, unspecified site 789.00 Active 69009598 Problem Pain in joint, site unspecified 719.40 Active 28248632 Problem Pain in joint, lower leg 719.46 Active 357842120 Problem Dyschromia, unspecified 709.00 Active 2816300 Problem Generalized osteoarthrosis, unspecified site 715.00 Active 210469733 Problem Unspecified symptom associated with female genital organs 625.9 Active 111866573 Problem Effusion of joint, other specified site 719.08 Active 389600220 Problem Blood in stool 578.1 Active 233057444 Problem Acute pharyngitis 462 Active 895213082 Problem Acute sinusitis, unspecified 461.9 Active 72265732 Problem Candidiasis of vulva and vagina 112.1 Active 94355033 Problem Tear of medial cartilage or meniscus of knee, current 836.0 Active 009740215 Problem Chronic hepatitis C without mention of hepatic coma 070.54 Active 350260390 Problem Other, multiple, and unspecified sites, insect bite, nonvenomous, without mention of infection 919.4 Active 086229243 Problem Elevated blood pressure reading without diagnosis of hypertension 796.2 Active 325389244 Problem External hemorrhoids without mention of complication 455.3 Active 93335131 Problem Essential hypertension, malignant 401.0 Active 84812079 Problem Unspecified otalgia 388.70 Active 17275818 Problem Dysmetabolic Syndrome X 277.7 Active 439152032 ALLERGIES No Information ENCOUNTERS Encounter Location Date Diagnosis [facility] [id number] [place] [address] 60821- 7918 Apr, [facility] [id number] [place] [address] 43128- 1128 Feb, [facility] [address] [address]- 00[address] Feb, [facility] [id number] [place] [address] 10227- 6349 Nov, [facility] [id number] [place] [address] 21717- 7162 Nov, [facility] [id number] [place] [address] 48863- 7274 Oct, [facility] [id number] [place] [address] 99717- 9043 Oct, [facility] [id number] [place] [address] 14663- 8936 Sep, [facility] [id number] [place] [address] 72595- 7913 Sep, [facility] [id number] [place] [address] 77764- 5232 Aug, [facility] [id number] [place] [address] 07833- 4279 Aug, [facility] [id number] [place] [address] 76757- 3061 Aug, [facility] [id number] [place] [address] 84732- 0089 Aug, [facility] [id number] [place] [address] 25635- 7539 Aug, [facility] [id number] [place] [address] 43526- 1814 Aug, [facility] [place] [facility] [address] [id number] [place] [address] 5631 Jun, [facility] [place] [facility] [address] [id number] [place] [address]- 1035 Jun, [facility] [place] [facility] [address] [id number] [place] [address]- 6402 Jun, [facility] [place] [facility] [address] [id number] [place] [address]- 2090 Jun, [facility] [place] [facility] [address] [id number] [place] [address]- 6334 Jun, [facility] [place] [facility] [address] [id number] [place] [address]- 8002 May, [facility] [place] [facility] [address] [id number] [place] [address]- 9343 May, [facility] [place] [facility] [address] [id number] [place] [address]- 4405 May, [facility] [place] [facility] [address] [id number] [place] [address]- 5718 May, [facility] [place] [facility] [address] [id number] [place] [address]- 6549 May, [facility] [place] [facility] [address] [id number] [place] [address]- 2938 May, [facility] [place] [facility] [address] [id number] [place] [address]- 8640 May, [facility] [place] [facility] [address] [id number] [place] [address]- 9108 May, [facility] [place] [facility] [address] [id number] [place] [address]- 9140 May, [facility] [place] [facility] [address] [id number] [place] [address]- 1185 May, [facility] [place] [facility] [address] [id number] [place] [address]- 8289 May, [facility] [address] [id number] [place] [address]- 1422 May, [facility] [place] [facility] [address] [id number] [place] [address]- 5036 May, [facility] [place] [facility] [address] [id number] [place] [address]- 8712 May, [facility] [place] [facility] [address] [id number] [place] [address]- 2381 Apr, [facility] [place] [facility] [address] [id number] [place] [address]- 5832 Apr, [facility] [place] [facility] [address] [id number] [place] [address]- 2610 Apr, [facility] [address] [id number] [place] [address]- 6977 Apr, [facility] [address] [id number] [place] [address]- 6412 March, [facility] [place] [facility] [address] [id number] [place] [address]- 7130 March, [facility] [address] [id number] [place] [address]- 4958 March, [facility] [place] [facility] [address] [id number] [place] [address]- 5223 March, [facility] [place] [facility] [address] [id number] [place] [address]- 9903 March, [facility] [place] [facility] [address] [id number] [place] [address]- 3813 March, [facility] [place] [facility] [address] [id number] [place] [address]- 4193 March, [facility] [place] [facility] [address] [id number] [place] [address]- 3131 March, [facility] [address] [id number] [place] [address]- 2915 March, [facility] [place] [facility] [address] [id number] [place] [address]- 6753 March, [facility] [place] [facility] [address] [id number] [place] [address]- 2873 March, [facility] [place] [facility] [address] [id number] [place] [address]- 2742 March, [facility] [place] [facility] [address] [id number] [place] [address] March, [facility] [place] [facility] [address] [id number] [place] [address]- 4057 March, [facility] [place] [facility] [address] [id number] [place] [address]- 1610 Feb, [facility] [place] [facility] [address] [id number] [place] [address]- 7813 Feb, [facility] [place] [facility] [address] [id number] [place] [address]- 4579 Feb, [facility] [place] [facility] [address] [id number] [place] [address]- 8942 Feb, [facility] [place] [facility] [address] [id number] [place] [address]- 9584 Feb, [facility] [place] [facility] [address] [id number] [place] [address]- 0706 Feb, [facility] [place] [facility] [address] [id number] [place] [address]- 3855 Jan, [facility] [place] [facility] [address] [id number] [place] [address]441 Jan, [facility] [place] [facility] [address] [id number] [place] [address]- 4952 Jan, [facility] [place] [facility] [address] [id number] [place] [address]- 5836 Jan, [facility] [place] [facility] [address] [id number] [place] [address]- 5188 Jan, [facility] [place] [facility] [address] [facility] [id number] [place] [address]- 9006 Jan, [facility] [place] [facility] [address] [facility] [id number] [place] [address]- 3812 Jan, [facility] [place] [facility] [address] [id number] [place] [address]- 6185 Jan, [facility] [place] [facility] [address] [id number] [place] [address]- 8571 Dec, [facility] [place] [facility] [address] [facility] [id number] [place] [address]- 0420 Dec, [facility] [place] [facility] [address] [facility] [id number] [place] [address]- 6581 Dec, [facility] [place] [facility] [address] [facility] [id number] [place] [address]- 0000 Dec, [facility] [place] [facility] [address] [facility] [id number] [place] [address]- 6792 Dec, [facility] [place] [facility] [address] [facility] [id number] [place] [address]- 7893 Dec, [facility] [place] [facility] [address] [facility] [id number] [place] [address]- 9095 Dec, [facility] [place] [facility] [address] [facility] [id number] [place] [address]- 1049 Dec, [facility] [place] [facility] [address] [facility] [id number] [place] [address]- 7893 Dec, [facility] [place] [facility] [address] [facility] [id number] [place] [address]- 2597 Dec, [facility] [place] [facility] [address] [facility] [id number] [place] [address]- 1922 Dec, [facility] [place] [facility] [address] [id number] [place] [address]- 0515 Dec, [facility] [place] [facility] [address] [id number] [place] [address]- 8231 Dec, [facility] [place] [facility] [address] [id number] [place] [address]- 5447 Nov, [facility] [place] [facility] [address] [id number] [place] [address]- 8346 Nov, [facility] [place] [facility] [address] [id number] [place] [address]- 9067 Nov, [facility] [place] [facility] [address] [id number] [place] [address]- 5145 Nov, [facility] [place] [facility] [address] [id number] [place] [address]- 3722 Nov, [facility] [place] [facility] [address] [id number] [place] [address]- 8948 Nov, [facility] [place] [facility] [address] [id number] [place] [address]- 6305 Nov, [facility] [place] [facility] [address] [id number] [place] [address]- 5998 Sep, [facility] [place] [facility] [address] [id number] [address]- 9768 Sep, [facility] [place] [facility] [address] [id number] [address]- 9228 Aug, [facility] [place] [facility] [address] [id number] [place] [address]- 0674 Aug, [facility] [place] [facility] [address] [id number] [place] [address]- 6724 Feb, [facility] [place] [facility] [address] [id number] [place] [address]- 8745 Dec, [facility] [place] [facility] [address] [id number] [address]- 7984 Dec, [facility] [address] [address]- 0096 Nov, [facility] [address] [address]- 9525 Sep, [facility] [address] [address]- 0651 Sep, [facility] [address] [address]- 4509 Aug, [facility] [id number] [place] [address] 90552- 9274 Aug, [facility] [address] [address]- 8238 March, [facility] [address] [address]- 8411 Aug, [facility] [address] [address]- 3096 Aug, IMMUNIZATIONS No Known Immunizations SOCIAL HISTORY Never Assessed REASON FOR VISIT EMR-[facility] PLAN OF CARE VITAL SIGNS MEDICATIONS Unknown Medications RESULTS No Results PROCEDURES No Known procedures INSTRUCTIONS MEDICATIONS ADMINISTERED No Known Medications
--- OUTSIDE RECORDS SUMMARY | 2019-03-29 09:02 | XMS REPORT | Continuity of Care Document ---
Author Organization Unknown Address Unknown Allergies Active Description Code Type Severity Reaction Onset Reported/Identified Relationship to Patient Clinical Status Yes No Known Drug Allergies [id number] Drug Allergy Unknown N/A 04/24/2012 Medications There is no data. Problems Date Dx Coded Attending Type Code Diagnosis Diagnosed By 06/05/2008 041.19 STAPHYLOCOCCUS INFECTION IN CONDITIONS CLASSIFIED ELSEWHERE AND OF UNSPECIFIED SITE OTHER STAPHYLOCOCCUS 06/05/2008 CARLOS HAYES PELON K 041.19 STAPHYLOCOCCUS INFECTION IN CONDITIONS CLASSIFIED ELSEWHERE AND OF UNSPECIFIED SITE OTHER STAPHYLOCOCCUS 06/05/2008 CARLOS HAYES, PELON K 041.19 STAPHYLOCOCCUS INFECTION IN CONDITIONS CLASSIFIED ELSEWHERE AND OF UNSPECIFIED SITE OTHER STAPHYLOCOCCUS 06/05/2008 MIGUELITO YANES APRNINA R 041.19 STAPHYLOCOCCUS INFECTION IN CONDITIONS CLASSIFIED ELSEWHERE AND OF UNSPECIFIED SITE OTHER STAPHYLOCOCCUS 06/05/2008 JOAQUÍN SCHWARTZ MAURO R 041.19 STAPHYLOCOCCUS INFECTION IN CONDITIONS CLASSIFIED ELSEWHERE AND OF UNSPECIFIED SITE OTHER STAPHYLOCOCCUS 06/05/2008 SOILA ALY APRN A 041.19 STAPHYLOCOCCUS INFECTION IN CONDITIONS CLASSIFIED ELSEWHERE AND OF UNSPECIFIED SITE OTHER STAPHYLOCOCCUS 06/05/2008 CARLOS HAYES PELON K 041.19 STAPHYLOCOCCUS INFECTION IN CONDITIONS CLASSIFIED ELSEWHERE AND OF UNSPECIFIED SITE OTHER STAPHYLOCOCCUS 06/05/2008 DANIELLE ALY APRNIDI A 041.19 STAPHYLOCOCCUS INFECTION IN CONDITIONS CLASSIFIED ELSEWHERE AND OF UNSPECIFIED SITE OTHER STAPHYLOCOCCUS 06/05/2008 CARLOS HAYES PELON K 041.19 STAPHYLOCOCCUS INFECTION IN CONDITIONS CLASSIFIED ELSEWHERE AND OF UNSPECIFIED SITE OTHER STAPHYLOCOCCUS 06/05/2008 CARLOS HAYES PELON K 041.19 STAPHYLOCOCCUS INFECTION IN CONDITIONS CLASSIFIED ELSEWHERE AND OF UNSPECIFIED SITE OTHER STAPHYLOCOCCUS 06/05/2008 MIGUELITO YANES APRNINA R 041.19 STAPHYLOCOCCUS INFECTION IN CONDITIONS CLASSIFIED ELSEWHERE AND OF UNSPECIFIED SITE OTHER STAPHYLOCOCCUS 06/05/2008 ALEXANDER ANGEL MD 041.19 STAPHYLOCOCCUS INFECTION IN CONDITIONS CLASSIFIED ELSEWHERE AND OF UNSPECIFIED SITE OTHER STAPHYLOCOCCUS 06/05/2008 GONZALEZ DO, PELON K 041.19 STAPHYLOCOCCUS INFECTION IN CONDITIONS CLASSIFIED ELSEWHERE AND OF UNSPECIFIED SITE OTHER STAPHYLOCOCCUS 06/05/2008 GONZALEZ DO, PELON K 041.19 STAPHYLOCOCCUS INFECTION IN CONDITIONS CLASSIFIED ELSEWHERE AND OF UNSPECIFIED SITE OTHER STAPHYLOCOCCUS 06/05/2008 JOAQUÍN RADIO ENGINEERING TEACHER, MAURO R 041.19 STAPHYLOCOCCUS INFECTION IN CONDITIONS CLASSIFIED ELSEWHERE AND OF UNSPECIFIED SITE OTHER STAPHYLOCOCCUS 06/05/2008 JERMAIN RADIO ENGINEERING TEACHER, SOILA A 041.19 STAPHYLOCOCCUS INFECTION IN CONDITIONS CLASSIFIED ELSEWHERE AND OF UNSPECIFIED SITE OTHER STAPHYLOCOCCUS 06/05/2008 JERMAIN RADIO ENGINEERING TEACHER, SOILA A 041.19 STAPHYLOCOCCUS INFECTION IN CONDITIONS CLASSIFIED ELSEWHERE AND OF UNSPECIFIED SITE OTHER STAPHYLOCOCCUS 06/05/2008 JOAQUÍN RADIO ENGINEERING TEACHER, MAURO R 041.19 STAPHYLOCOCCUS INFECTION IN CONDITIONS CLASSIFIED ELSEWHERE AND OF UNSPECIFIED SITE OTHER STAPHYLOCOCCUS 06/05/2008 JOAQUÍN RADIO ENGINEERING TEACHER, MAURO R 041.19 STAPHYLOCOCCUS INFECTION IN CONDITIONS CLASSIFIED ELSEWHERE AND OF UNSPECIFIED SITE OTHER STAPHYLOCOCCUS 06/05/2008 JOAQUÍN RADIO ENGINEERING TEACHER, MAURO R 041.19 STAPHYLOCOCCUS INFECTION IN CONDITIONS CLASSIFIED ELSEWHERE AND OF UNSPECIFIED SITE OTHER STAPHYLOCOCCUS 06/05/2008 JOAQUÍN RADIO ENGINEERING TEACHER, MAURO R 041.19 STAPHYLOCOCCUS INFECTION IN CONDITIONS CLASSIFIED ELSEWHERE AND OF UNSPECIFIED SITE OTHER STAPHYLOCOCCUS 06/05/2008 041.19 STAPHYLOCOCCUS INFECTION IN CONDITIONS CLASSIFIED ELSEWHERE AND OF UNSPECIFIED SITE OTHER STAPHYLOCOCCUS 08/29/2008 465.9 UPPER RESPIRATORY INFECTION 08/29/2008 GONZALEZ DO, PELON K 465.9 UPPER RESPIRATORY INFECTION 08/29/2008 GONZALEZ DO, PLEON K 465.9 UPPER RESPIRATORY INFECTION 08/29/2008 JOAQUÍN RADIO ENGINEERING TEACHER, MAURO R 465.9 UPPER RESPIRATORY INFECTION 08/29/2008 JOAQUÍN RADIO ENGINEERING TEACHER, MAURO R 465.9 UPPER RESPIRATORY INFECTION 08/29/2008 JERMAINDRE SCHWARTZ SOILA A 465.9 UPPER RESPIRATORY INFECTION 08/29/2008 GONZALEZ DO, PELON K 465.9 UPPER RESPIRATORY INFECTION 08/29/2008 JERMAIN RADIO ENGINEERING TEACHER SOILA A 465.9 UPPER RESPIRATORY INFECTION 08/29/2008 GONZALEZ DO, PELON K 465.9 UPPER RESPIRATORY INFECTION 08/29/2008 GONZALEZ DO, PELON K 465.9 UPPER RESPIRATORY INFECTION 08/29/2008 JOAQUÍN RADIO ENGINEERING TEACHER, MAURO R 465.9 UPPER RESPIRATORY INFECTION 08/29/2008 ALEXANDER ANGEL MD 465.9 UPPER RESPIRATORY INFECTION 08/29/2008 GONZALEZ DO, PELON K 465.9 UPPER RESPIRATORY INFECTION 08/29/2008 GONZALEZ DO, PELON K 465.9 UPPER RESPIRATORY INFECTION 08/29/2008 JOAQUÍN RADIO ENGINEERING TEACHER, MAURO R 465.9 UPPER RESPIRATORY INFECTION 08/29/2008 JERMAIN RADIO ENGINEERING TEACHER, SOILA A 465.9 UPPER RESPIRATORY INFECTION 08/29/2008 JERMAIN RADIO ENGINEERING TEACHER, SOILA A 465.9 UPPER RESPIRATORY INFECTION 08/29/2008 JOAQUÍN RADIO ENGINEERING TEACHER, MAURO R 465.9 UPPER RESPIRATORY INFECTION 08/29/2008 JOAQUÍN RADIO ENGINEERING TEACHER, MAURO R 465.9 UPPER RESPIRATORY INFECTION 08/29/2008 JOAQUÍN RADIO ENGINEERING TEACHER, MAURO R 465.9 UPPER RESPIRATORY INFECTION 08/29/2008 JOAQUÍN RADIO ENGINEERING TEACHER, MAURO R 465.9 UPPER RESPIRATORY INFECTION 08/29/2008 465.9 UPPER RESPIRATORY INFECTION 09/25/2008 401.1 HYPERTENSION, BENIGN ESSENTIAL 09/25/2008 786.50 CHEST PAIN 09/25/2008 GONZALEZ DO, PELON K 401.1 HYPERTENSION, BENIGN ESSENTIAL 09/25/2008 GONZALEZ DO, PELON K 786.50 CHEST PAIN 09/25/2008 GONZALEZ DO, PELON K 401.1 HYPERTENSION, BENIGN ESSENTIAL 09/25/2008 GONZALEZ DO, PELON K 786.50 CHEST PAIN 09/25/2008 JOAQUÍN RADIO ENGINEERING TEACHER, MAURO R 401.1 HYPERTENSION, BENIGN ESSENTIAL 09/25/2008 JOAQUÍN RADIO ENGINEERING TEACHER, MAURO R 786.50 CHEST PAIN 09/25/2008 JOAQUÍN RADIO ENGINEERING TEACHER, MAURO R 401.1 HYPERTENSION, BENIGN ESSENTIAL 09/25/2008 JOAQUÍN RADIO ENGINEERING TEACHER, MAURO R 786.50 CHEST PAIN 09/25/2008 JERMAIN RADIO ENGINEERING TEACHER, SOILA A 401.1 HYPERTENSION, BENIGN ESSENTIAL 09/25/2008 JERMAIN RADIO ENGINEERING TEACHER, SOILA A 786.50 CHEST PAIN 09/25/2008 GONZALEZ DO, PELON K 401.1 HYPERTENSION, BENIGN ESSENTIAL 09/25/2008 GONZALEZ DO, PELON K 786.50 CHEST PAIN 09/25/2008 JERMAIN RADIO ENGINEERING TEACHER, SOILA A 401.1 HYPERTENSION, BENIGN ESSENTIAL 09/25/2008 JERMAIN RADIO ENGINEERING TEACHER, SOILA A 786.50 CHEST PAIN 09/25/2008 GONZALEZ DO, PELON K 401.1 HYPERTENSION, BENIGN ESSENTIAL 09/25/2008 GONZALEZ DO, PELON K 786.50 CHEST PAIN 09/25/2008 GONZALEZ DO, PELON K 401.1 HYPERTENSION, BENIGN ESSENTIAL 09/25/2008 GONZALEZ DO, PELON K 786.50 CHEST PAIN 09/25/2008 JOAQUÍN RADIO ENGINEERING TEACHER, MAURO R 401.1 HYPERTENSION, BENIGN ESSENTIAL 09/25/2008 JOAQUÍN BEACHN, MAURO R 786.50 CHEST PAIN 09/25/2008 JEANNE GATES, ALEXANDER N 401.1 HYPERTENSION, BENIGN ESSENTIAL 09/25/2008 JEANNE GATES, ALEXANDER N 786.50 CHEST PAIN 09/25/2008 GONZALEZ DO, PELON K 401.1 HYPERTENSION, BENIGN ESSENTIAL 09/25/2008 GONZALEZ DO, PELON K 786.50 CHEST PAIN 09/25/2008 GONZALEZ DO, PELON K 401.1 HYPERTENSION, BENIGN ESSENTIAL 09/25/2008 GONZALEZ DO, PELON K 786.50 CHEST PAIN 09/25/2008 JOAQUÍN RADIO ENGINEERING TEACHER, MAURO R 401.1 HYPERTENSION, BENIGN ESSENTIAL 09/25/2008 JOAQUÍN RADIO ENGINEERING TEACHER, MAURO R 786.50 CHEST PAIN 09/25/2008 JERMAIN RADIO ENGINEERING TEACHER, SOILA A 401.1 HYPERTENSION, BENIGN ESSENTIAL 09/25/2008 JERMAIN RADIO ENGINEERING TEACHER, SOILA A 786.50 CHEST PAIN 09/25/2008 JERMAIN RADIO ENGINEERING TEACHER, SOILA A 401.1 HYPERTENSION, BENIGN ESSENTIAL 09/25/2008 JERMAIN RADIO ENGINEERING TEACHER, SOILA A 786.50 CHEST PAIN 09/25/2008 JOAQUÍN RADIO ENGINEERING TEACHER, MAURO R 401.1 HYPERTENSION, BENIGN ESSENTIAL 09/25/2008 JOAQUÍN RADIO ENGINEERING TEACHER, MAURO R 786.50 CHEST PAIN 09/25/2008 JOAQUÍN RADIO ENGINEERING TEACHER, MAURO R 401.1 HYPERTENSION, BENIGN ESSENTIAL 09/25/2008 JOAQUÍN RADIO ENGINEERING TEACHER, MAURO R 786.50 CHEST PAIN 09/25/2008 JOAQUÍN RADIO ENGINEERING TEACHER, MAURO R 401.1 HYPERTENSION, BENIGN ESSENTIAL 09/25/2008 JOAQUÍN RADIO ENGINEERING TEACHER, MAURO R 786.50 CHEST PAIN 09/25/2008 JOAQUÍN RADIO ENGINEERING TEACHER, MAURO R 401.1 HYPERTENSION, BENIGN ESSENTIAL 09/25/2008 JOAQUÍN RADIO ENGINEERING TEACHER, MAURO R 786.50 CHEST PAIN 09/25/2008 401.1 HYPERTENSION, BENIGN ESSENTIAL 09/25/2008 786.50 CHEST PAIN 02/02/2010 723.1 CERVICALGIA 02/02/2010 GONZALEZ DO, PELON K 723.1 CERVICALGIA 02/02/2010 GONZALEZ DO, PELON K 723.1 CERVICALGIA 02/02/2010 JOAQUÍN RADIO ENGINEERING TEACHER, MAURO R 723.1 CERVICALGIA 02/02/2010 JOAQUÍN RADIO ENGINEERING TEACHER, MAURO R 723.1 CERVICALGIA 02/02/2010 JERMAIN RADIO ENGINEERING TEACHER, SOILA A 723.1 CERVICALGIA 02/02/2010 GONZALEZ DO, PELON K 723.1 CERVICALGIA 02/02/2010 JERMAIN RADIO ENGINEERING TEACHER, SOILA A 723.1 CERVICALGIA 02/02/2010 GONZALEZ DO, PELON K 723.1 CERVICALGIA 02/02/2010 GONZALEZ DO, PELON K 723.1 CERVICALGIA 02/02/2010 JOAQUÍN RADIO ENGINEERING TEACHER, MAURO R 723.1 CERVICALGIA 02/02/2010 JEANNE GATES, ALEXANDER Centeno 723.1 CERVICALGIA 02/02/2010 GONZALEZ DO, PELON K 723.1 CERVICALGIA 02/02/2010 GONZALEZ DO, PELON K 723.1 CERVICALGIA 02/02/2010 JOAQUÍN RADIO ENGINEERING TEACHER, MAURO R 723.1 CERVICALGIA 02/02/2010 JERMAIN RADIO ENGINEERING TEACHER, SOILA A 723.1 CERVICALGIA 02/02/2010 JERMAIN RADIO ENGINEERING TEACHER, SOILA A 723.1 CERVICALGIA 02/02/2010 JOAQUÍN RADIO ENGINEERING TEACHER, MAURO R 723.1 CERVICALGIA 02/02/2010 JOAQUÍN RADIO ENGINEERING TEACHER, MAURO R 723.1 CERVICALGIA 02/02/2010 JOAQUÍN RADIO ENGINEERING TEACHER, MAURO R 723.1 CERVICALGIA 02/02/2010 JOAQUÍN RADIO ENGINEERING TEACHER, MAURO R 723.1 CERVICALGIA 02/02/2010 723.1 CERVICALGIA 04/10/2010 373.11 HORDEOLUM EXTERNUM 04/10/2010 GONZALEZ DO, PELON K 373.11 HORDEOLUM EXTERNUM 04/10/2010 GONZALEZ DO, PELON K 373.11 HORDEOLUM EXTERNUM 04/10/2010 JOAQUÍN RADIO ENGINEERING TEACHER, MAURO R 373.11 HORDEOLUM EXTERNUM 04/10/2010 JOAQUÍN RADIO ENGINEERING TEACHER, MAURO R 373.11 HORDEOLUM EXTERNUM 04/10/2010 JERMAIN RADIO ENGINEERING TEACHER, SOILA A 373.11 HORDEOLUM EXTERNUM 04/10/2010 GONZALEZ DO, PELON K 373.11 HORDEOLUM EXTERNUM 04/10/2010 JERMAIN RADIO ENGINEERING TEACHER, SOILA A 373.11 HORDEOLUM EXTERNUM 04/10/2010 GONZALEZ DO, PELON K 373.11 HORDEOLUM EXTERNUM 04/10/2010 GONZALEZ DO, PELON K 373.11 HORDEOLUM EXTERNUM 04/10/2010 JOAQUÍN RADIO ENGINEERING TEACHER, MAURO R 373.11 HORDEOLUM EXTERNUM 04/10/2010 ALEXANDER ANGEL MD N 373.11 HORDEOLUM EXTERNUM 04/10/2010 GONZALEZ DO, PELON K 373.11 HORDEOLUM EXTERNUM 04/10/2010 GONZALEZ DO, PELON K 373.11 HORDEOLUM EXTERNUM 04/10/2010 JOAQUÍN BEACHN, MAURO R 373.11 HORDEOLUM EXTERNUM 04/10/2010 JERMAIN RADIO ENGINEERING TEACHER, SOILA A 373.11 HORDEOLUM EXTERNUM 04/10/2010 JERMAIN BEACHN, SOILA A 373.11 HORDEOLUM EXTERNUM 04/10/2010 JOAQUÍN BEACHN, MAURO R 373.11 HORDEOLUM EXTERNUM 04/10/2010 JOAQUÍN BEACHN, MAURO R 373.11 HORDEOLUM EXTERNUM 04/10/2010 JOAQUÍN BEACHN, MAURO R 373.11 HORDEOLUM EXTERNUM 04/10/2010 JOAQUÍN SCHWARTZ, MAURO R 373.11 HORDEOLUM EXTERNUM 04/10/2010 373.11 HORDEOLUM EXTERNUM 10/17/2012 578.1 HEMATOCHEZIA 10/17/2012 599.0 URINARY TRACT INFECTION 10/17/2012 GONZALEZ DO, PELON K 578.1 HEMATOCHEZIA 10/17/2012 GONZALEZ DO, PELON K 599.0 URINARY TRACT INFECTION 10/17/2012 GONZALEZ DO, PELON K 578.1 HEMATOCHEZIA 10/17/2012 GONZALEZ DO, PELON K 599.0 URINARY TRACT INFECTION 10/17/2012 JOAQUÍN SCHWARTZ, MAURO R 578.1 HEMATOCHEZIA 10/17/2012 JOAQUÍN SCHWARTZ, MAURO R 599.0 URINARY TRACT INFECTION 10/17/2012 JOAQUÍN SCHWARTZ, MAURO R 578.1 HEMATOCHEZIA 10/17/2012 JOAQUÍN SCHWARTZ, MAURO R 599.0 URINARY TRACT INFECTION 10/17/2012 JERMAIN SCHWARTZ, SOILA A 578.1 HEMATOCHEZIA 10/17/2012 JERMAIN SCHWARTZ, SOILA A 599.0 URINARY TRACT INFECTION 10/17/2012 GONZALEZ DO, PELON K 578.1 HEMATOCHEZIA 10/17/2012 GONZALEZ DO, PELNO K 599.0 URINARY TRACT INFECTION 10/17/2012 SOILA ALY APRN A 578.1 HEMATOCHEZIA 10/17/2012 JERMAIN RADIO ENGINEERING TEACHER, SOILA A 599.0 URINARY TRACT INFECTION 10/17/2012 GONZALEZ DO, PELON K 578.1 HEMATOCHEZIA 10/17/2012 GONZALEZ DO, PELON K 599.0 URINARY TRACT INFECTION 10/17/2012 GONZALEZ DO, PELON K 578.1 HEMATOCHEZIA 10/17/2012 GONZALEZ DO, PELON K 599.0 URINARY TRACT INFECTION 10/17/2012 JOAQUÍN RADIO ENGINEERING TEACHER, MAURO R 578.1 HEMATOCHEZIA 10/17/2012 JOAQUÍN RADIO ENGINEERING TEACHER, MAURO R 599.0 URINARY TRACT INFECTION 10/17/2012 ALEXANDER ANGEL MD N 578.1 HEMATOCHEZIA 10/17/2012 ALEXANDER ANGEL MD N 599.0 URINARY TRACT INFECTION 10/17/2012 GONZALEZ DO, PELON K 578.1 HEMATOCHEZIA 10/17/2012 GONZALEZ DO, PELON K 599.0 URINARY TRACT INFECTION 10/17/2012 GONZALEZ DO, PELON K 578.1 HEMATOCHEZIA 10/17/2012 GONZALEZ DO, PELON K 599.0 URINARY TRACT INFECTION 10/17/2012 JOAQUÍN BEACHN, MAURO R 578.1 HEMATOCHEZIA 10/17/2012 JOAQUÍN BEACHN, MAURO R 599.0 URINARY TRACT INFECTION 10/17/2012 JERMAIN RADIO ENGINEERING TEACHER, SOILA A 578.1 HEMATOCHEZIA 10/17/2012 JERMAIN RADIO ENGINEERING TEACHER, SOILA A 599.0 URINARY TRACT INFECTION 10/17/2012 JERMAIN RADIO ENGINEERING TEACHER, SOILA A 578.1 HEMATOCHEZIA 10/17/2012 JERMAIN RADIO ENGINEERING TEACHER, SOILA A 599.0 URINARY TRACT INFECTION 10/17/2012 JOAQUÍN BEACHN, MAURO R 578.1 HEMATOCHEZIA 10/17/2012 JOAQUÍN BEACHN, MAURO R 599.0 URINARY TRACT INFECTION 10/17/2012 JOAQUÍN BEACHN, MAURO R 578.1 HEMATOCHEZIA 10/17/2012 JOAQUÍN RADIO ENGINEERING TEACHER, MAURO R 599.0 URINARY TRACT INFECTION 10/17/2012 JOAQUÍN BEACHN, MAURO R 578.1 HEMATOCHEZIA 10/17/2012 JOAQUÍN SCHWARTZ, MAURO R 599.0 URINARY TRACT INFECTION 10/17/2012 JOAQUÍN RADIO ENGINEERING TEACHER, MAURO R 578.1 HEMATOCHEZIA 10/17/2012 JOAQUÍN RADIO ENGINEERING TEACHER, MAURO R 599.0 URINARY TRACT INFECTION 10/17/2012 578.1 HEMATOCHEZIA 10/17/2012 599.0 URINARY TRACT INFECTION 12/25/2012 112.1 CANDIDIASIS VAGINAL 12/25/2012 GONZALEZ DO, PELON K 112.1 CANDIDIASIS VAGINAL 12/25/2012 GONZALEZ DO, PELON K 112.1 CANDIDIASIS VAGINAL 12/25/2012 JOAQUÍN BEACHN, MAURO R 112.1 CANDIDIASIS VAGINAL 12/25/2012 JOAQUÍN RADIO ENGINEERING TEACHER, MAURO R 112.1 CANDIDIASIS VAGINAL 12/25/2012 JERMAIN APRN, SOILA A 112.1 CANDIDIASIS VAGINAL 12/25/2012 GONZALEZ DO, PELON K 112.1 CANDIDIASIS VAGINAL 12/25/2012 JERMAINJacobo SCHWARTZ SOILA A 112.1 CANDIDIASIS VAGINAL 12/25/2012 GONZALEZ DO, PELON K 112.1 CANDIDIASIS VAGINAL 12/25/2012 GONZALEZ DO, PELON K 112.1 CANDIDIASIS VAGINAL 12/25/2012 JOAQUÍN SCHWARTZ, MAURO R 112.1 CANDIDIASIS VAGINAL 12/25/2012 ALEXANDER ANGEL MD N 112.1 CANDIDIASIS VAGINAL 12/25/2012 GONZALEZ DO, PELON K 112.1 CANDIDIASIS VAGINAL 12/25/2012 GONZALEZ DO, PELON K 112.1 CANDIDIASIS VAGINAL 12/25/2012 JOAQUÍN BEACHN, MAURO R 112.1 CANDIDIASIS VAGINAL 12/25/2012 DANIELLE ALY APRNIDI A 112.1 CANDIDIASIS VAGINAL 12/25/2012 JERMAINJacobo SCHWARTZ SOILA A 112.1 CANDIDIASIS VAGINAL 12/25/2012 JOAQUÍN SCHWARTZ, MAURO R 112.1 CANDIDIASIS VAGINAL 12/25/2012 JOAQUÍN BEACHN, MAURO R 112.1 CANDIDIASIS VAGINAL 12/25/2012 JOAQUÍN BEACHN, MAURO R 112.1 CANDIDIASIS VAGINAL 12/25/2012 JOAQUÍN BEACHN, MAURO R 112.1 CANDIDIASIS VAGINAL 01/15/2013 GONZALEZ DO PELON K 461.9 SINUSITIS ACUTE 01/15/2013 GONZALEZ DO PELON K 461.9 SINUSITIS ACUTE 01/15/2013 JOAQUÍN SCHWARTZ MAURO R 461.9 SINUSITIS ACUTE 01/15/2013 JOAQUÍN SCHWARTZ MAURO R 461.9 SINUSITIS ACUTE 01/15/2013 DANIELLE ALY APRNIDI A 461.9 SINUSITIS ACUTE 01/15/2013 GONZALEZ DO, PELON K 461.9 SINUSITIS ACUTE 01/15/2013 JERMAIN RADIO ENGINEERING TEACHER, SOILA A 461.9 SINUSITIS ACUTE 01/15/2013 GONZALEZ DO, PELON K 461.9 SINUSITIS ACUTE 01/15/2013 GONZALEZ DO, PELON K 461.9 SINUSITIS ACUTE 01/15/2013 JOAQUÍN RADIO ENGINEERING TEACHER, MAURO R 461.9 SINUSITIS ACUTE 01/15/2013 ALEXANDER ANGEL MD 461.9 SINUSITIS ACUTE 01/15/2013 GONZALEZ DO, PELON K 461.9 SINUSITIS ACUTE 01/15/2013 GONZALEZ DO, PELON K 461.9 SINUSITIS ACUTE 01/15/2013 JOAQUÍN RADIO ENGINEERING TEACHER, MAURO R 461.9 SINUSITIS ACUTE 01/15/2013 JERMAIN SCHWARTZ SOILA A 461.9 SINUSITIS ACUTE 01/15/2013 JERMAIN RADIO ENGINEERING TEACHER, SOILA A 461.9 SINUSITIS ACUTE 01/15/2013 JOAQUÍN RADIO ENGINEERING TEACHER, MAURO R 461.9 SINUSITIS ACUTE 01/15/2013 JOAQUÍN RADIO ENGINEERING TEACHER, MAURO R 461.9 SINUSITIS ACUTE 01/15/2013 JOAQUÍN RADIO ENGINEERING TEACHER, MAURO R 461.9 SINUSITIS ACUTE 01/15/2013 JOAQUÍN RADIO ENGINEERING TEACHER, MAURO R 461.9 SINUSITIS ACUTE 08/04/2013 TASNEEM GATES, TIA A Ot 466.0 ACUTE BRONCHITIS 08/04/2013 TASNEEM GATES, TIA A Ot 786.2 COUGH 09/25/2013 BRAXTON GONZALEZ DOA K 625.8 OTHER SPECIFIED SYMPTOMS ASSOCIATED WITH FEMALE GENITAL ORGANS 09/25/2013 JOAQUÍN SCHWARTZ MAURO R 625.8 OTHER SPECIFIED SYMPTOMS ASSOCIATED WITH FEMALE GENITAL ORGANS 09/25/2013 JOAQUÍN SCHWARTZ MAURO R 625.8 OTHER SPECIFIED SYMPTOMS ASSOCIATED WITH FEMALE GENITAL ORGANS 09/25/2013 SOILA ALY APRN A 625.8 OTHER SPECIFIED SYMPTOMS ASSOCIATED WITH FEMALE GENITAL ORGANS 09/25/2013 PELON GONZALEZ DO K 625.8 OTHER SPECIFIED SYMPTOMS ASSOCIATED WITH FEMALE GENITAL ORGANS 09/25/2013 SOILA ALY APRN A 625.8 OTHER SPECIFIED SYMPTOMS ASSOCIATED WITH FEMALE GENITAL ORGANS 09/25/2013 BRAXTON GONZALEZ DOA K 625.8 OTHER SPECIFIED SYMPTOMS ASSOCIATED WITH FEMALE GENITAL ORGANS 09/25/2013 BRAXTON GONZALEZ DOA K 625.8 OTHER SPECIFIED SYMPTOMS ASSOCIATED WITH FEMALE GENITAL ORGANS 09/25/2013 JOAQUÍN RADIO ENGINEERING TEACHER, MAURO R 625.8 OTHER SPECIFIED SYMPTOMS ASSOCIATED WITH FEMALE GENITAL ORGANS 09/25/2013 JEANNE GATES, ALEXANDER Centeno 625.8 OTHER SPECIFIED SYMPTOMS ASSOCIATED WITH FEMALE GENITAL ORGANS 09/25/2013 GONZALEZ DO, PELON K 625.8 OTHER SPECIFIED SYMPTOMS ASSOCIATED WITH FEMALE GENITAL ORGANS 09/25/2013 GONZALEZ DO, PELON K 625.8 OTHER SPECIFIED SYMPTOMS ASSOCIATED WITH FEMALE GENITAL ORGANS 09/25/2013 JOAQUÍN RADIO ENGINEERING TEACHER, MAURO R 625.8 OTHER SPECIFIED SYMPTOMS ASSOCIATED WITH FEMALE GENITAL ORGANS 09/25/2013 JERMAIN RADIO ENGINEERING TEACHER, SOILA A 625.8 OTHER SPECIFIED SYMPTOMS ASSOCIATED WITH FEMALE GENITAL ORGANS 09/25/2013 JERMAIN RADIO ENGINEERING TEACHER, SOILA A 625.8 OTHER SPECIFIED SYMPTOMS ASSOCIATED WITH FEMALE GENITAL ORGANS 09/25/2013 JOAQUÍN RADIO ENGINEERING TEACHER, MAURO R 625.8 OTHER SPECIFIED SYMPTOMS ASSOCIATED WITH FEMALE GENITAL ORGANS 09/25/2013 JOAQUÍN RADIO ENGINEERING TEACHER, MAURO R 625.8 OTHER SPECIFIED SYMPTOMS ASSOCIATED WITH FEMALE GENITAL ORGANS 09/25/2013 JOAQUÍN RADIO ENGINEERING TEACHER, MAURO R 625.8 OTHER SPECIFIED SYMPTOMS ASSOCIATED WITH FEMALE GENITAL ORGANS 09/25/2013 JOAQUÍN RADIO ENGINEERING TEACHER, MAURO R 625.8 OTHER SPECIFIED SYMPTOMS ASSOCIATED WITH FEMALE GENITAL ORGANS 12/20/2013 JOAQUÍN RADIO ENGINEERING TEACHER, MAURO R 401.0 HYPERTENSION MALIGNANT ESSENTIAL 12/20/2013 JOAQUÍN RADIO ENGINEERING TEACHER, MAURO R 462 ACUTE PHARYNGITIS 12/20/2013 JOAQUÍN RADIO ENGINEERING TEACHER, MAURO R 719.40 PAIN IN JOINT SITE UNSPECIFIED 12/20/2013 JOAQUÍN BEACHN, MAURO R 789.00 ABDOMINAL PAIN UNSPECIFIED SITE 12/20/2013 JOAQUÍN BEACHN, MAURO R 401.0 HYPERTENSION MALIGNANT ESSENTIAL 12/20/2013 JOAQUÍN RADIO ENGINEERING TEACHER, MAURO R 462 ACUTE PHARYNGITIS 12/20/2013 JOAQUÍN RADIO ENGINEERING TEACHER, MAURO R 719.40 PAIN IN JOINT SITE UNSPECIFIED 12/20/2013 JOAQUÍN BEACHN, MAURO R 789.00 ABDOMINAL PAIN UNSPECIFIED SITE 12/20/2013 JERMAIN RADIO ENGINEERING TEACHER, SOILA A 401.0 HYPERTENSION MALIGNANT ESSENTIAL 12/20/2013 JERMAIN RADIO ENGINEERING TEACHER, SOILA A 462 ACUTE PHARYNGITIS 12/20/2013 JERMAIN RADIO ENGINEERING TEACHER, SOILA A 719.40 PAIN IN JOINT SITE UNSPECIFIED 12/20/2013 JERMAIN RADIO ENGINEERING TEACHER, SOILA A 789.00 ABDOMINAL PAIN UNSPECIFIED SITE 12/20/2013 GONZALEZ DO, PELON K 401.0 HYPERTENSION MALIGNANT ESSENTIAL 12/20/2013 GONZALEZ DO, PELON K 462 ACUTE PHARYNGITIS 12/20/2013 GONZALEZ DO, PELON K 719.40 PAIN IN JOINT SITE UNSPECIFIED 12/20/2013 GONZALEZ DO, PELON K 789.00 ABDOMINAL PAIN UNSPECIFIED SITE 12/20/2013 JERMAIN RADIO ENGINEERING TEACHER, SOILA A 401.0 HYPERTENSION MALIGNANT ESSENTIAL 12/20/2013 JERMAIN RADIO ENGINEERING TEACHER, SOILA A 462 ACUTE PHARYNGITIS 12/20/2013 JERMAIN RADIO ENGINEERING TEACHER, SOILA A 719.40 PAIN IN JOINT SITE UNSPECIFIED 12/20/2013 JERMAIN RADIO ENGINEERING TEACHER, SOILA A 789.00 ABDOMINAL PAIN UNSPECIFIED SITE 12/20/2013 GONZALEZ DO, PELON K 401.0 HYPERTENSION MALIGNANT ESSENTIAL 12/20/2013 GONZALEZ DO, PELON K 462 ACUTE PHARYNGITIS 12/20/2013 GONZALEZ DO, PELON K 719.40 PAIN IN JOINT SITE UNSPECIFIED 12/20/2013 GONZALEZ DO, PELON K 789.00 ABDOMINAL PAIN UNSPECIFIED SITE 12/20/2013 GONZALEZ DO, PELON K 401.0 HYPERTENSION MALIGNANT ESSENTIAL 12/20/2013 GONZALEZ DO, PELON K 462 ACUTE PHARYNGITIS 12/20/2013 GONZALEZ DO, PELON K 719.40 PAIN IN JOINT SITE UNSPECIFIED 12/20/2013 GONZALEZ DO, PELON K 789.00 ABDOMINAL PAIN UNSPECIFIED SITE 12/20/2013 JOAQUÍN RADIO ENGINEERING TEACHER, MAURO R 401.0 HYPERTENSION MALIGNANT ESSENTIAL 12/20/2013 JOAQUÍN RADIO ENGINEERING TEACHER, MAURO R 462 ACUTE PHARYNGITIS 12/20/2013 JOAQUÍN RADIO ENGINEERING TEACHER, MAURO R 719.40 PAIN IN JOINT SITE UNSPECIFIED 12/20/2013 JOAQUÍN RADIO ENGINEERING TEACHER, MAURO R 789.00 ABDOMINAL PAIN UNSPECIFIED SITE 12/20/2013 ALEXANDER ANGEL MD N 401.0 HYPERTENSION MALIGNANT ESSENTIAL 12/20/2013 ALEXANDER ANGEL MD N 462 ACUTE PHARYNGITIS 12/20/2013 ALEXANDER ANGEL MD N 719.40 PAIN IN JOINT SITE UNSPECIFIED 12/20/2013 ALEXANDER ANGEL MD N 789.00 ABDOMINAL PAIN UNSPECIFIED SITE 12/20/2013 GONZALEZ DO, PELON K 401.0 HYPERTENSION MALIGNANT ESSENTIAL 12/20/2013 GONAZLEZ DO, PELON K 462 ACUTE PHARYNGITIS 12/20/2013 GONZALEZ DO, PELON K 719.40 PAIN IN JOINT SITE UNSPECIFIED 12/20/2013 GONZALEZ DO, PELON K 789.00 ABDOMINAL PAIN UNSPECIFIED SITE 12/20/2013 GONZALEZ DO, PELON K 401.0 HYPERTENSION MALIGNANT ESSENTIAL 12/20/2013 GONZALEZ DO, PELON K 462 ACUTE PHARYNGITIS 12/20/2013 GONZALEZ DO, PELON K 719.40 PAIN IN JOINT SITE UNSPECIFIED 12/20/2013 GONZALEZ DO, PELON K 789.00 ABDOMINAL PAIN UNSPECIFIED SITE 12/20/2013 JOAQUÍN RADIO ENGINEERING TEACHER, MAURO R 401.0 HYPERTENSION MALIGNANT ESSENTIAL 12/20/2013 JOAQUÍN RADIO ENGINEERING TEACHER, MAURO R 462 ACUTE PHARYNGITIS 12/20/2013 JOAQUÍN RADIO ENGINEERING TEACHER, MAURO R 719.40 PAIN IN JOINT SITE UNSPECIFIED 12/20/2013 JOAQUÍN RADIO ENGINEERING TEACHER, MAURO R 789.00 ABDOMINAL PAIN UNSPECIFIED SITE 12/20/2013 JERMAIN RADIO ENGINEERING TEACHER, SOILA A 401.0 HYPERTENSION MALIGNANT ESSENTIAL 12/20/2013 JERMAIN RADIO ENGINEERING TEACHER, SOILA A 462 ACUTE PHARYNGITIS 12/20/2013 JERMAIN RADIO ENGINEERING TEACHER, SOILA A 719.40 PAIN IN JOINT SITE UNSPECIFIED 12/20/2013 JERMAIN RADIO ENGINEERING TEACHER, SOILA A 789.00 ABDOMINAL PAIN UNSPECIFIED SITE 12/20/2013 JERMAIN RADIO ENGINEERING TEACHER, SOILA A 401.0 HYPERTENSION MALIGNANT ESSENTIAL 12/20/2013 JERMAIN RADIO ENGINEERING TEACHER, SOILA A 462 ACUTE PHARYNGITIS 12/20/2013 JERMAIN RADIO ENGINEERING TEACHER, SOILA A 719.40 PAIN IN JOINT SITE UNSPECIFIED 12/20/2013 JERMAIN RADIO ENGINEERING TEACHER, SOILA A 789.00 ABDOMINAL PAIN UNSPECIFIED SITE 12/20/2013 JOAQUÍN RADIO ENGINEERING TEACHER, MAURO R 401.0 HYPERTENSION MALIGNANT ESSENTIAL 12/20/2013 JOAQUÍN RADIO ENGINEERING TEACHER, MAURO R 462 ACUTE PHARYNGITIS 12/20/2013 JOAQUÍN RADIO ENGINEERING TEACHER, MAURO R 719.40 PAIN IN JOINT SITE UNSPECIFIED 12/20/2013 JOAQUÍN RADIO ENGINEERING TEACHER, MAURO R 789.00 ABDOMINAL PAIN UNSPECIFIED SITE 12/20/2013 JOAQUÍN RADIO ENGINEERING TEACHER, MAURO R 401.0 HYPERTENSION MALIGNANT ESSENTIAL 12/20/2013 JOAQUÍN RADIO ENGINEERING TEACHER, MAURO R 462 ACUTE PHARYNGITIS 12/20/2013 JOAQUÍN RADIO ENGINEERING TEACHER, MAURO R 719.40 PAIN IN JOINT SITE UNSPECIFIED 12/20/2013 JOAQUÍN RADIO ENGINEERING TEACHER, MAURO R 789.00 ABDOMINAL PAIN UNSPECIFIED SITE 12/20/2013 JOAQUÍN RADIO ENGINEERING TEACHER, MAURO R 401.0 HYPERTENSION MALIGNANT ESSENTIAL 12/20/2013 JOAQUÍN RADIO ENGINEERING TEACHER, MAURO R 462 ACUTE PHARYNGITIS 12/20/2013 JOAQUÍN RADIO ENGINEERING TEACHER, MAURO R 719.40 PAIN IN JOINT SITE UNSPECIFIED 12/20/2013 JOAQUÍN RADIO ENGINEERING TEACHER, MAURO R 789.00 ABDOMINAL PAIN UNSPECIFIED SITE 12/20/2013 JOAQUÍN RADIO ENGINEERING TEACHER, MAURO R 401.0 HYPERTENSION MALIGNANT ESSENTIAL 12/20/2013 JOAQUÍN RADIO ENGINEERING TEACHER, MAURO R 462 ACUTE PHARYNGITIS 12/20/2013 JOAQUÍN RADIO ENGINEERING TEACHER, MAURO R 719.40 PAIN IN JOINT SITE UNSPECIFIED 12/20/2013 JOAQUÍN RADIO ENGINEERING TEACHER, MAURO R 789.00 ABDOMINAL PAIN UNSPECIFIED SITE 12/26/2013 JOAQUÍN RADIO ENGINEERING TEACHER, MAURO R 070.54 CHRONIC HEPATITIS C WITHOUT HEPATIC COMA 12/26/2013 JOAQUÍN BEACHN, MAURO R 388.70 OTALGIA UNSPECIFIED 12/26/2013 JERMAIN RADIO ENGINEERING TEACHER, SOILA A 070.54 CHRONIC HEPATITIS C WITHOUT HEPATIC COMA 12/26/2013 JERMAINDRE BEACHN, SOILA A 388.70 OTALGIA UNSPECIFIED 12/26/2013 GONZALEZ DO, PELON K 070.54 CHRONIC HEPATITIS C WITHOUT HEPATIC COMA 12/26/2013 GONZALEZ DO, PELON K 388.70 OTALGIA UNSPECIFIED 12/26/2013 JERMAINDRE BEACHN, SOILA A 070.54 CHRONIC HEPATITIS C WITHOUT HEPATIC COMA 12/26/2013 JERMAIN BEACHN, SOILA A 388.70 OTALGIA UNSPECIFIED 12/26/2013 GONZALEZ DO, PELON K 070.54 CHRONIC HEPATITIS C WITHOUT HEPATIC COMA 12/26/2013 GONZALEZ DO, PELON K 388.70 OTALGIA UNSPECIFIED 12/26/2013 GONZALEZ DO, PELON K 070.54 CHRONIC HEPATITIS C WITHOUT HEPATIC COMA 12/26/2013 GONZALEZ DO, PELON K 388.70 OTALGIA UNSPECIFIED 12/26/2013 JOAQUÍN BEACHN, MAURO R 070.54 CHRONIC HEPATITIS C WITHOUT HEPATIC COMA 12/26/2013 JOAQUÍN RADIO ENGINEERING TEACHER, MAURO R 388.70 OTALGIA UNSPECIFIED 12/26/2013 ALEXANDER ANGEL MD N 070.54 CHRONIC HEPATITIS C WITHOUT HEPATIC COMA 12/26/2013 ALEXANDER ANGEL MD N 388.70 OTALGIA UNSPECIFIED 12/26/2013 GONZALEZ DO, PELON K 070.54 CHRONIC HEPATITIS C WITHOUT HEPATIC COMA 12/26/2013 GONZALEZ DO, PELON K 388.70 OTALGIA UNSPECIFIED 12/26/2013 GONZALEZ DO, PELON K 070.54 CHRONIC HEPATITIS C WITHOUT HEPATIC COMA 12/26/2013 GONZALEZ DO, PELON K 388.70 OTALGIA UNSPECIFIED 12/26/2013 JOAQUÍN RADIO ENGINEERING TEACHER, MAURO R 070.54 CHRONIC HEPATITIS C WITHOUT HEPATIC COMA 12/26/2013 JOAQUÍN RADIO ENGINEERING TEACHER, MAURO R 388.70 OTALGIA UNSPECIFIED 12/26/2013 JERMAIN RADIO ENGINEERING TEACHER, SOILA A 070.54 CHRONIC HEPATITIS C WITHOUT HEPATIC COMA 12/26/2013 JERMAIN RADIO ENGINEERING TEACHER, SOILA A 388.70 OTALGIA UNSPECIFIED 12/26/2013 JERMAIN RADIO ENGINEERING TEACHER, SOILA A 070.54 CHRONIC HEPATITIS C WITHOUT HEPATIC COMA 12/26/2013 JERMAIN RADIO ENGINEERING TEACHER, SOILA A 388.70 OTALGIA UNSPECIFIED 12/26/2013 JOAQUÍN RADIO ENGINEERING TEACHER, MAURO R 070.54 CHRONIC HEPATITIS C WITHOUT HEPATIC COMA 12/26/2013 JOAQUÍN RADIO ENGINEERING TEACHER, MAURO R 388.70 OTALGIA UNSPECIFIED 12/26/2013 JOAQUÍN RADIO ENGINEERING TEACHER, MAURO R 070.54 CHRONIC HEPATITIS C WITHOUT HEPATIC COMA 12/26/2013 JOAQUÍN RADIO ENGINEERING TEACHER, MAURO R 388.70 OTALGIA UNSPECIFIED 12/26/2013 JOAQUÍN RADIO ENGINEERING TEACHER, MAURO R 070.54 CHRONIC HEPATITIS C WITHOUT HEPATIC COMA 12/26/2013 JOAQUÍN RADIO ENGINEERING TEACHER, MAURO R 388.70 OTALGIA UNSPECIFIED 12/26/2013 JOAQUÍN BEACHN, MAURO R 070.54 CHRONIC HEPATITIS C WITHOUT HEPATIC COMA 12/26/2013 JOAQUÍN BEACHN, MAURO R 388.70 OTALGIA UNSPECIFIED 01/15/2014 GONZALEZ DO, PELON K 796.2 ELEVATED BLOOD PRESSURE READING WITHOUT DIAGNOSIS OF HYPERTENSION 01/15/2014 JERMAIN RADIO ENGINEERING TEACHER, SOILA A 796.2 ELEVATED BLOOD PRESSURE READING WITHOUT DIAGNOSIS OF HYPERTENSION 01/15/2014 GONZALEZ DO, PELON K 796.2 ELEVATED BLOOD PRESSURE READING WITHOUT DIAGNOSIS OF HYPERTENSION 01/15/2014 GONZALEZ DO, PELON K 796.2 ELEVATED BLOOD PRESSURE READING WITHOUT DIAGNOSIS OF HYPERTENSION 01/15/2014 JOAQUÍN SCHWARTZ, MAURO R 796.2 ELEVATED BLOOD PRESSURE READING WITHOUT DIAGNOSIS OF HYPERTENSION 01/15/2014 ALEXANDER ANGEL MD 796.2 ELEVATED BLOOD PRESSURE READING WITHOUT DIAGNOSIS OF HYPERTENSION 01/15/2014 GONZALEZ DO, PELON K 796.2 ELEVATED BLOOD PRESSURE READING WITHOUT DIAGNOSIS OF HYPERTENSION 01/15/2014 GONZALEZ DO, PELON K 796.2 ELEVATED BLOOD PRESSURE READING WITHOUT DIAGNOSIS OF HYPERTENSION 01/15/2014 JOAQUÍN SCHWARTZ, MAURO R 796.2 ELEVATED BLOOD PRESSURE READING WITHOUT DIAGNOSIS OF HYPERTENSION 01/15/2014 JERMAINJacobo SCHWARTZ SOILA A 796.2 ELEVATED BLOOD PRESSURE READING WITHOUT DIAGNOSIS OF HYPERTENSION 01/15/2014 JERMAINJacobo SCHWARTZ SOILA A 796.2 ELEVATED BLOOD PRESSURE READING WITHOUT DIAGNOSIS OF HYPERTENSION 01/15/2014 JOAQUÍN SCHWARTZ MAURO R 796.2 ELEVATED BLOOD PRESSURE READING WITHOUT DIAGNOSIS OF HYPERTENSION 01/15/2014 JOAQUÍN SCHWARTZ, MAURO R 796.2 ELEVATED BLOOD PRESSURE READING WITHOUT DIAGNOSIS OF HYPERTENSION 01/15/2014 JOAQUÍN SCHWARTZ, MAURO R 796.2 ELEVATED BLOOD PRESSURE READING WITHOUT DIAGNOSIS OF HYPERTENSION 01/15/2014 JOAQUÍN SCHWARTZ, MAURO R 796.2 ELEVATED BLOOD PRESSURE READING WITHOUT DIAGNOSIS OF HYPERTENSION 01/16/2014 SOILA ALY APRN A V65.42 COUNSELING - SMOKING CESSATION 01/16/2014 JERMAINSOILA Centeno APRN A V65.49 OTHER SPECIFIED COUNSELING 01/16/2014 SOILA ALY APRN A V72.31 STRAIGHTENER EXAM, ROUTINE 01/16/2014 JERMAINDANIELLE Centeno APRNIDI A V76.10 BREAST CANCER SCREENING 01/16/2014 GONZALEZ DO PELON K V65.42 COUNSELING - SMOKING CESSATION 01/16/2014 GONZALEZ DO PELON K V65.49 OTHER SPECIFIED COUNSELING 01/16/2014 GONZALEZ DO PELON K V72.31 STRAIGHTENER EXAM, ROUTINE 01/16/2014 GONZALEZ DO, PELON K V76.10 BREAST CANCER SCREENING 01/16/2014 GONZALEZ DO PELON K V65.42 COUNSELING - SMOKING CESSATION 01/16/2014 GONZALEZ DO PELON K V65.49 OTHER SPECIFIED COUNSELING 01/16/2014 GONZALEZ DO, PELON K V72.31 STRAIGHTENER EXAM, ROUTINE 01/16/2014 GONZALEZ DO, PELON K V76.10 BREAST CANCER SCREENING 01/16/2014 JOAQUÍN RADIO ENGINEERING TEACHER, MAURO R V65.42 COUNSELING - SMOKING CESSATION 01/16/2014 JOAQUÍN RADIO ENGINEERING TEACHER, MAURO R V65.49 OTHER SPECIFIED COUNSELING 01/16/2014 JOAQUÍN RADIO ENGINEERING TEACHER, MAURO R V72.31 STRAIGHTENER EXAM, ROUTINE 01/16/2014 JOAQUÍN RADIO ENGINEERING TEACHER, MAURO R V76.10 BREAST CANCER SCREENING 01/16/2014 ALEXANDER ANGEL MD V65.42 COUNSELING - SMOKING CESSATION 01/16/2014 ALEXANDER ANGEL MD V65.49 OTHER SPECIFIED COUNSELING 01/16/2014 ALEXANDER ANGEL MD V72.31 STRAIGHTENER EXAM, ROUTINE 01/16/2014 ALEXANDER ANGEL MD V76.10 BREAST CANCER SCREENING 01/16/2014 GONZALEZ DO PELON K V65.42 COUNSELING - SMOKING CESSATION 01/16/2014 GONZALEZ DO PELON K V65.49 OTHER SPECIFIED COUNSELING 01/16/2014 GONZALEZ DO, PELON K V72.31 STRAIGHTENER EXAM, ROUTINE 01/16/2014 GONZALEZ DO, PELON K V76.10 BREAST CANCER SCREENING 01/16/2014 GONZALEZ DO PELON K V65.42 COUNSELING - SMOKING CESSATION 01/16/2014 GONZALEZ DO PELON K V65.49 OTHER SPECIFIED COUNSELING 01/16/2014 GONZALEZ DO, PELON K V72.31 STRAIGHTENER EXAM, ROUTINE 01/16/2014 GONZALEZ DO PELON K V76.10 BREAST CANCER SCREENING 01/16/2014 JOAQUÍN RADIO ENGINEERING TEACHER, MAURO R V65.42 COUNSELING - SMOKING CESSATION 01/16/2014 JOAQUÍN RADIO ENGINEERING TEACHER, MAURO R V65.49 OTHER SPECIFIED COUNSELING 01/16/2014 JOAQUÍN RADIO ENGINEERING TEACHER, MAURO R V72.31 STRAIGHTENER EXAM, ROUTINE 01/16/2014 JOAQUÍN RADIO ENGINEERING TEACHER, MAURO R V76.10 BREAST CANCER SCREENING 01/16/2014 JERMAINJacobo SCHWARTZ SOILA A V65.42 COUNSELING - SMOKING CESSATION 01/16/2014 JERMAIN APRN, SOILA A V65.49 OTHER SPECIFIED COUNSELING 01/16/2014 JERMAIN RADIO ENGINEERING TEACHER, SOILA A V72.31 STRAIGHTENER EXAM, ROUTINE 01/16/2014 JERMAIN RADIO ENGINEERING TEACHER, SOILA A V76.10 BREAST CANCER SCREENING 01/16/2014 JERMAIN RADIO ENGINEERING TEACHER, SOILA A V65.42 COUNSELING - SMOKING CESSATION 01/16/2014 JERMAIN RADIO ENGINEERING TEACHER, SOILA A V65.49 OTHER SPECIFIED COUNSELING 01/16/2014 JERMAIN RADIO ENGINEERING TEACHER, SOILA A V72.31 STRAIGHTENER EXAM, ROUTINE 01/16/2014 JERMAIN RADIO ENGINEERING TEACHER, SOILA A V76.10 BREAST CANCER SCREENING 01/16/2014 JOAQUÍN RADIO ENGINEERING TEACHER, MAURO R V65.42 COUNSELING - SMOKING CESSATION 01/16/2014 JOAQUÍN RADIO ENGINEERING TEACHER, MAURO R V65.49 OTHER SPECIFIED COUNSELING 01/16/2014 JOAQUÍN RADIO ENGINEERING TEACHER, MAURO R V72.31 STRAIGHTENER EXAM, ROUTINE 01/16/2014 JOAQUÍN RADIO ENGINEERING TEACHER, MAURO R V76.10 BREAST CANCER SCREENING 01/16/2014 JOAQUÍN RADIO ENGINEERING TEACHER, MAURO R V65.42 COUNSELING - SMOKING CESSATION 01/16/2014 JOAQUÍN RADIO ENGINEERING TEACHER, MAURO R V65.49 OTHER SPECIFIED COUNSELING 01/16/2014 JOAQUÍN RADIO ENGINEERING TEACHER, MAURO R V72.31 STRAIGHTENER EXAM, ROUTINE 01/16/2014 JOAQUÍN RADIO ENGINEERING TEACHER, MAURO R V76.10 BREAST CANCER SCREENING 01/16/2014 JOAQUÍN RADIO ENGINEERING TEACHER, MAURO R V65.42 COUNSELING - SMOKING CESSATION 01/16/2014 JOAQUÍN RADIO ENGINEERING TEACHER, MAURO R V65.49 OTHER SPECIFIED COUNSELING 01/16/2014 JOAQUÍN RADIO ENGINEERING TEACHER, MAURO R V72.31 STRAIGHTENER EXAM, ROUTINE 01/16/2014 JOAQUÍN RADIO ENGINEERING TEACHER, MAURO R V76.10 BREAST CANCER SCREENING 01/16/2014 JOAQUÍN RADIO ENGINEERING TEACHER, MAURO R V65.42 COUNSELING - SMOKING CESSATION 01/16/2014 JOAQUÍN BEACHN, MAURO R V65.49 OTHER SPECIFIED COUNSELING 01/16/2014 JOAQUÍN RADIO ENGINEERING TEACHER, MAURO R V72.31 STRAIGHTENER EXAM, ROUTINE 01/16/2014 JOAQUÍN RADIO ENGINEERING TEACHER, MAURO R V76.10 BREAST CANCER SCREENING 01/23/2014 GONZALEZ DO, PELON K 786.2 COUGH 01/23/2014 GONZALEZ DO, PELON K 786.2 COUGH 01/23/2014 JOAQUÍN RADIO ENGINEERING TEACHER, MAURO R 786.2 COUGH 01/23/2014 JEANNE GATES, ALEXANDER Centeno 786.2 COUGH 01/23/2014 GONZALEZ DO, PELON K 786.2 COUGH 01/23/2014 GONZALEZ DO, PELON K 786.2 COUGH 01/23/2014 JOAQUÍN RADIO ENGINEERING TEACHER, MAURO R 786.2 COUGH 01/23/2014 JERMAIN RADIO ENGINEERING TEACHER, SOILA A 786.2 COUGH 01/23/2014 JERMAIN RADIO ENGINEERING TEACHER, SOILA A 786.2 COUGH 01/23/2014 JOAQUÍN RADIO ENGINEERING TEACHER, MAURO R 786.2 COUGH 01/23/2014 JOAQUÍN RADIO ENGINEERING TEACHER, MAURO R 786.2 COUGH 01/23/2014 JOAQUÍN RADIO ENGINEERING TEACHER, MAURO R 786.2 COUGH 01/23/2014 JOAQUÍN RADIO ENGINEERING TEACHER, MAURO R 786.2 COUGH 02/14/2014 GONZALEZ DO, PELON K 709.00 DYSCHROMIA UNSPECIFIED 02/14/2014 JOAQUÍN RADIO ENGINEERING TEACHER, MAURO R 709.00 DYSCHROMIA UNSPECIFIED 02/14/2014 ALEXANDER ANGEL MD N 709.00 DYSCHROMIA UNSPECIFIED 02/14/2014 GONZALEZ DO, PELON K 709.00 DYSCHROMIA UNSPECIFIED 02/14/2014 GONZALEZ DO, PELON K 709.00 DYSCHROMIA UNSPECIFIED 02/14/2014 JOAQUÍN RADIO ENGINEERING TEACHER, MAURO R 709.00 DYSCHROMIA UNSPECIFIED 02/14/2014 JERMAIN RADIO ENGINEERING TEACHER, SOILA A 709.00 DYSCHROMIA UNSPECIFIED 02/14/2014 JERMAIN RADIO ENGINEERING TEACHER, SOILA A 709.00 DYSCHROMIA UNSPECIFIED 02/14/2014 JOAQUÍN RADIO ENGINEERING TEACHER, MAURO R 709.00 DYSCHROMIA UNSPECIFIED 02/14/2014 JOAQUÍN RADIO ENGINEERING TEACHER, MAURO R 709.00 DYSCHROMIA UNSPECIFIED 02/14/2014 JOAQUÍN RADIO ENGINEERING TEACHER, MAURO R 709.00 DYSCHROMIA UNSPECIFIED 02/14/2014 JOAQUÍN RADIO ENGINEERING TEACHER, MAURO R 709.00 DYSCHROMIA UNSPECIFIED 03/11/2014 ALEXANDER ANGEL MD N 919.4 INSECT BITE NONVENOMOUS OF OTHER MULTIPLE AND UNSPECIFIED SITES WITHOUT INFECTION 03/11/2014 BRAXTON GONZALEZ DOA K 919.4 INSECT BITE NONVENOMOUS OF OTHER MULTIPLE AND UNSPECIFIED SITES WITHOUT INFECTION 03/11/2014 GONZALEZ BRAXTON HAYESA K 919.4 INSECT BITE NONVENOMOUS OF OTHER MULTIPLE AND UNSPECIFIED SITES WITHOUT INFECTION 03/11/2014 JOAQUÍN BEACHN, MAURO R 919.4 INSECT BITE NONVENOMOUS OF OTHER MULTIPLE AND UNSPECIFIED SITES WITHOUT INFECTION 03/11/2014 DANIELLE ALY APRNIDI A 919.4 INSECT BITE NONVENOMOUS OF OTHER MULTIPLE AND UNSPECIFIED SITES WITHOUT INFECTION 03/11/2014 DANIELLE ALY APRNIDI A 919.4 INSECT BITE NONVENOMOUS OF OTHER MULTIPLE AND UNSPECIFIED SITES WITHOUT INFECTION 03/11/2014 JOAQUÍN SCHWARTZ MAURO R 919.4 INSECT BITE NONVENOMOUS OF OTHER MULTIPLE AND UNSPECIFIED SITES WITHOUT INFECTION 03/11/2014 JOAQUÍN BEACHN MAURO R 919.4 INSECT BITE NONVENOMOUS OF OTHER MULTIPLE AND UNSPECIFIED SITES WITHOUT INFECTION 03/11/2014 JOAQUÍN BEACHN, MAURO R 919.4 INSECT BITE NONVENOMOUS OF OTHER MULTIPLE AND UNSPECIFIED SITES WITHOUT INFECTION 03/11/2014 JOAQUÍN SCHWARTZ MAURO R 919.4 INSECT BITE NONVENOMOUS OF OTHER MULTIPLE AND UNSPECIFIED SITES WITHOUT INFECTION 03/28/2014 PELON GONZALEZ DO 719.46 PAIN IN JOINT INVOLVING LOWER LEG 03/28/2014 PELON GONZALEZ DO 719.46 PAIN IN JOINT INVOLVING LOWER LEG 03/28/2014 MIGUELITO YANES APRNINA R 719.46 PAIN IN JOINT INVOLVING LOWER LEG 03/28/2014 SOILA ALY APRN A 719.46 PAIN IN JOINT INVOLVING LOWER LEG 03/28/2014 SOILA ALY APRN A 719.46 PAIN IN JOINT INVOLVING LOWER LEG 03/28/2014 JOAQUÍN SCHWARTZ MAURO R 719.46 PAIN IN JOINT INVOLVING LOWER LEG 03/28/2014 MIGUELITO YANES APRNINA R 719.46 PAIN IN JOINT INVOLVING LOWER LEG 03/28/2014 MIGUELITO YANES APRNINA R 719.46 PAIN IN JOINT INVOLVING LOWER LEG 03/28/2014 MIGUELITO YANES APRNINA R 719.46 PAIN IN JOINT INVOLVING LOWER LEG 04/12/2014 JESSEE GRIMES DO Ot 307.42 PERSISTENT INSOMNIA 04/12/2014 JESSEE GRIMES DO Ot 786.09 RESPIRATORY ABNORM NEC 04/17/2014 PELON GONZALEZ DO 715.00 OSTEOARTHROSIS GENERALIZED INVOLVING UNSPECIFIED SITE 04/17/2014 PELON GONZALEZ DO 719.08 EFFUSION OF JOINT OF OTHER SPECIFIED SITES 04/17/2014 PELON GONZALEZ DO 836.0 TEAR OF MEDIAL CARTILAGE OR MENISCUS OF KNEE CURRENT 04/17/2014 JOAQUÍN SCHWARTZ MAURO R 715.00 OSTEOARTHROSIS GENERALIZED INVOLVING UNSPECIFIED SITE 04/17/2014 JOAQUÍN SCHWARTZ MAURO R 719.08 EFFUSION OF JOINT OF OTHER SPECIFIED SITES 04/17/2014 JOAQUÍN SCHWARTZ, MAURO R 836.0 TEAR OF MEDIAL CARTILAGE OR MENISCUS OF KNEE CURRENT 04/17/2014 JERMAIN RADIO ENGINEERING TEACHER, SOILA A 715.00 OSTEOARTHROSIS GENERALIZED INVOLVING UNSPECIFIED SITE 04/17/2014 JERMAIN RADIO ENGINEERING TEACHER, SOILA A 719.08 EFFUSION OF JOINT OF OTHER SPECIFIED SITES 04/17/2014 JERMAIN RADIO ENGINEERING TEACHER, SOILA A 836.0 TEAR OF MEDIAL CARTILAGE OR MENISCUS OF KNEE CURRENT 04/17/2014 JERMAIN RADIO ENGINEERING TEACHER, SOILA A 715.00 OSTEOARTHROSIS GENERALIZED INVOLVING UNSPECIFIED SITE 04/17/2014 JERMAIN RADIO ENGINEERING TEACHER, SOILA A 719.08 EFFUSION OF JOINT OF OTHER SPECIFIED SITES 04/17/2014 JERMAIN BEACHNDANIELLESOILA A 836.0 TEAR OF MEDIAL CARTILAGE OR MENISCUS OF KNEE CURRENT 04/17/2014 JOAQUÍN SCHWARTZ MAURO R 715.00 OSTEOARTHROSIS GENERALIZED INVOLVING UNSPECIFIED SITE 04/17/2014 JOAQUÍN SCHWARTZ MAURO R 719.08 EFFUSION OF JOINT OF OTHER SPECIFIED SITES 04/17/2014 JOAQUÍN SCHWARTZ MAURO R 836.0 TEAR OF MEDIAL CARTILAGE OR MENISCUS OF KNEE CURRENT 04/17/2014 JOAQUÍN SCHWARTZ MAURO R 715.00 OSTEOARTHROSIS GENERALIZED INVOLVING UNSPECIFIED SITE 04/17/2014 JOAQUÍN SCHWARTZ MAURO R 719.08 EFFUSION OF JOINT OF OTHER SPECIFIED SITES 04/17/2014 JOAQUÍN SCHWARTZ MAURO R 836.0 TEAR OF MEDIAL CARTILAGE OR MENISCUS OF KNEE CURRENT 04/17/2014 JOAQUÍN SCHWARTZ MAURO R 715.00 OSTEOARTHROSIS GENERALIZED INVOLVING UNSPECIFIED SITE 04/17/2014 JOAQUÍN SCHWARTZ MAURO R 719.08 EFFUSION OF JOINT OF OTHER SPECIFIED SITES 04/17/2014 JOAQUÍN SCHWARTZ MAURO R 836.0 TEAR OF MEDIAL CARTILAGE OR MENISCUS OF KNEE CURRENT 04/17/2014 JOAQUÍN SCHWARTZ MAURO R 715.00 OSTEOARTHROSIS GENERALIZED INVOLVING UNSPECIFIED SITE 04/17/2014 JOAQUÍN SCHWARTZ MAURO R 719.08 EFFUSION OF JOINT OF OTHER SPECIFIED SITES 04/17/2014 JOAQUÍN RADIO ENGINEERING TEACHER, MAURO R 836.0 TEAR OF MEDIAL CARTILAGE OR MENISCUS OF KNEE CURRENT 05/02/2014 REVEAL LISA GATES Ot 717.7 CHONDROMALACIA PATELLAE 05/02/2014 REVEAL LISA GATES Ot 836.2 TEAR MENISCUS NEC-CURREN 05/02/2014 REVEAL LISA GATES Ot E000.8 OTHER EXTERNAL CAUSE STATUS 05/02/2014 REVEAL LISA GATES Ot E888.9 FALL NOS 06/03/2014 JOAQUÍN RADIO ENGINEERING TEACHER, MAURO R 277.7 DYSMETABOLIC SYNDROME X 06/03/2014 JERMAIN RADIO ENGINEERING TEACHER, SOILA A 277.7 DYSMETABOLIC SYNDROME X 06/03/2014 JERMAIN RADIO ENGINEERING TEACHER, SOILA A 277.7 DYSMETABOLIC SYNDROME X 06/03/2014 JOAQUÍN BEACHN, MAURO R 277.7 DYSMETABOLIC SYNDROME X 06/03/2014 JOAQUÍN RADIO ENGINEERING TEACHER, MAURO R 277.7 DYSMETABOLIC SYNDROME X 06/03/2014 JOAQUÍN BEACHN, MAURO R 277.7 DYSMETABOLIC SYNDROME X 06/03/2014 JOAQUÍN RADIO ENGINEERING TEACHER, MAURO R 277.7 DYSMETABOLIC SYNDROME X 06/16/2014 JERMAIN RADIO ENGINEERING TEACHER, SOILA A 625.9 PELVIC PAIN 06/16/2014 JERMAIN RADIO ENGINEERING TEACHER, SOILA A 625.9 PELVIC PAIN 06/16/2014 JOAQUÍN RADIO ENGINEERING TEACHER, MAURO R 625.9 PELVIC PAIN 06/16/2014 JOAQUÍN RADIO ENGINEERING TEACHER, MAURO R 625.9 PELVIC PAIN 06/16/2014 JOAQUÍN RADIO ENGINEERING TEACHER, MAURO R 625.9 PELVIC PAIN 06/16/2014 JOAQUÍN BEACHN, MAURO R 625.9 PELVIC PAIN 07/04/2014 JOAQUÍN RADIO ENGINEERING TEACHER, MAURO R 455.3 EXTERNAL HEMORRHOIDS WITHOUT COMPLICATION 07/04/2014 JOAQUÍN RADIO ENGINEERING TEACHER, MAURO R 455.3 EXTERNAL HEMORRHOIDS WITHOUT COMPLICATION 07/04/2014 JOAQUÍN BEACHN, MAURO R 455.3 EXTERNAL HEMORRHOIDS WITHOUT COMPLICATION 07/04/2014 JOAQUÍN BEACHN, MAURO R 455.3 EXTERNAL HEMORRHOIDS WITHOUT COMPLICATION 09/12/2014 MARIUM DÍAZ RADIO ENGINEERING TEACHER Ot 715.36 LOC OSTEOARTH NOS-L/LEG 09/12/2014 MARIUM DÍAZ APRN Ot 719.46 JOINT PAIN-L/LEG 09/15/2014 TASNEEM GATES, TIA Blancas Ot 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 09/15/2014 TASNEEM GATES, TIA A Ot 781.94 FACIAL WEAKNESS 10/09/2014 VITT, ELI M BROKERAGE MANAGER Ot 719.46 10/09/2014 VITT, ELI M BROKERAGE MANAGER Ot 724.5 10/09/2014 VITT, ELI M BROKERAGE MANAGER Ot V57.1 10/16/2014 VITT, ELI M BROKERAGE MANAGER Ot 719.46 10/16/2014 VITT, ELI M BROKERAGE MANAGER Ot 724.5 10/16/2014 VITT, EIL M BROKERAGE MANAGER Ot V57.1 10/21/2014 VITT, ELI M BROKERAGE MANAGER Ot 719.46 JOINT PAIN-L/LEG 10/21/2014 VITT, ELI M BROKERAGE MANAGER Ot 724.5 BACKACHE NOS 10/21/2014 VITT, ELI M BROKERAGE MANAGER Ot V57.1 PHYSICAL THERAPY NEC 12/15/2014 SOILA ALY APRN Ot V76.12 12/26/2014 SOILA ALY APRN Ot V76.12 03/03/2015 JESSEE GRIMES DO Ot 070.70 03/03/2015 JESSEE GRIMES DO Ot 305.1 03/03/2015 JESSEE GRIMES DO Ot 477.9 03/03/2015 JESSEE GRIMES DO M Ot 496 03/03/2015 JESSEE GRIMES DO M Ot 780.1 03/03/2015 LISA ALANIZ MD Ot 836.2 03/03/2015 LIAS ALANIZ MD Ot E000.8 03/03/2015 LISA ALANIZ MD Ot E888.9 03/03/2015 LISA ALANIZ MD Ot V72.81 03/03/2015 LISA ALANIZ MD Ot V74.8 03/03/2015 SOILA ALY APRN Ot V76.12 03/24/2015 JOAN CRANE DO Ot 793.89 05/23/2015 BRANDIN JACKSON APRN Ot 789.00 08/12/2015 RHONDA GARCES MD Ot 455.0 INT HEMORRHOID W/O COMPL 08/12/2015 RHONDA GARCES MD Ot 455.3 EXT HEMORRHOID W/O COMPL 08/12/2015 RHONDA GARCES MD Ot 562.10 DIVERTICULOSIS COLON (W/O MENT OF HEMORR 08/20/2015 BRANDIN JACKSON RADIO ENGINEERING TEACHER Ot 715.35 08/20/2015 BRANDIN JACKSON RADIO ENGINEERING TEACHER Ot 721.3 10/09/2015 BRANDIN JACKSON RADIO ENGINEERING TEACHER Ot M81.0 10/27/2015 BRANDIN JACKSON RADIO ENGINEERING TEACHER Ot M81.0 03/17/2016 SALOMÓN GATES, CODY Gan Ot R92.8 OTH ABN AND INCONCLUSIVE FINDINGS ON DX 04/19/2016 SALOMÓN GATES, CODY Gan Ot R92.8 OTH ABN AND INCONCLUSIVE FINDINGS ON DX 04/13/2017 JESSEE GRIMES DO Ot 070.70 UNSPECIFIED VIRAL HEPATITIS C WITHOUT HE 04/13/2017 JESSEE GRIMES DO Ot 305.1 TOBACCO USE DISORDER 04/13/2017 JESSEE GRIMES DO Ot 477.9 ALLERGIC RHINITIS NOS 04/13/2017 JESSEE GRIMES DO Ot 496 CHR AIRWAY OBSTRUCT NEC 04/13/2017 JESSEE GRIMES DO Ot 780.1 HALLUCINATIONS 04/13/2017 LISA ALANIZ MD Ot 836.2 TEAR MENISCUS NEC-CURREN 04/13/2017 LISA ALANIZ MD Ot E000.8 OTHER EXTERNAL CAUSE STATUS 04/13/2017 LISA ALANIZ MD Ot E888.9 FALL NOS 04/13/2017 LISA ALANIZ MD Ot V72.81 [id number] CARDIOVASCULAR 04/13/2017 LISA ALANIZ MD Ot V74.8 SCREEN-BACTERIAL DIS NEC 04/13/2017 SOILA ALY RADIO ENGINEERING TEACHER Ot V76.12 OTH SCREEN MAMMO-MALIGN NEOPLASM OF OLAF 04/13/2017 JOAN CRANE DO Ot 793.89 OTH (ABN) FINDINGS ON RADIOLOGICAL EXAMI 04/13/2017 BRANDIN JACKSON RADIO ENGINEERING TEACHER Ot 789.00 ABDOMINAL PAIN, UNSPECIFIED SITE 04/13/2017 Ot V72.84 EXAM PRE- OPERATIVE NOS 04/13/2017 BRANDIN JACKSON RADIO ENGINEERING TEACHER Ot 715.35 LOC OSTEOARTH NOS-PELVIS 04/13/2017 BRANDIN JACKSON RADIO ENGINEERING TEACHER Ot 721.3 LUMBOSACRAL SPONDYLOSIS 04/13/2017 RHONDA GARCES MD Ot 569.3 RECTAL ANAL HEMORRHAGE 04/13/2017 DEZ GATES, RHONDA Ot V72.84 EXAM PRE-OPERATIVE NOS 04/13/2017 JACKSON BRANDIN Centeno APRN Ot M81.0 AGE-RELATED OSTEOPOROSIS W/O CURRENT PAT 04/13/2017 SALOMÓN GATES, CODY Gan Ot R92.8 OTH ABN AND INCONCLUSIVE FINDINGS ON DX 04/14/2017 JACKSON BRANDIN Centeno APRN Ot Z12.31 ENCNTR SCREEN MAMMOGRAM FOR MALIGNANT NE 04/27/2017 BRANDIN JACKSON APRN Ot Z12.31 ENCNTR SCREEN MAMMOGRAM FOR MALIGNANT NE 08/24/2017 GEORGE COTO MD, Ot B19.20 UNSPECIFIED VIRAL HEPATITIS C WITHOUT HE 08/24/2017 GEORGE COTO MD, Ot D72.829 ELEVATED WHITE BLOOD CELL COUNT, UNSPECI 08/24/2017 GEORGE COTO MD, Ot E11.9 TYPE 2 DIABETES MELLITUS WITHOUT COMPLIC 08/24/2017 GEORGE COTO MD, Ot E66.01 MORBID (SEVERE) OBESITY DUE TO EXCESS CA 08/24/2017 GEORGE COTO MD, Ot F32.9 MAJOR DEPRESSIVE DISORDER, SINGLE EPISOD 08/24/2017 GEORGE COTO MD, Ot F41.9 ANXIETY DISORDER, UNSPECIFIED 08/24/2017 GEORGE COTO MD, Ot I10 ESSENTIAL (PRIMARY) HYPERTENSION 08/24/2017 GEORGE COTO MD, Ot J44.9 CHRONIC OBSTRUCTIVE PULMONARY DISEASE, U 08/24/2017 GEORGE COTO MD, Ot K21.9 GASTRO-ESOPHAGEAL REFLUX DISEASE WITHOUT 08/24/2017 GEORGE COTO MD, Ot M19.91 PRIMARY OSTEOARTHRITIS, UNSPECIFIED SITE 08/24/2017 GEORGE COTO MD, Ot M79.7 FIBROMYALGIA 08/24/2017 GEORGE COTO MD, Ot Z68.42 BODY MASS INDEX (BMI) 45.0-49.9, ADULT 08/24/2017 GEORGE COTO MD, Ot Z79.899 OTHER CORRECTIONAL OFFICER (CURRENT) DRUG THERAPY 08/26/2017 GEORGE COTO MD, Ot B19.20 UNSPECIFIED VIRAL HEPATITIS C WITHOUT HE 08/26/2017 GEORGE COTO MD, Ot D72.829 ELEVATED WHITE BLOOD CELL COUNT, UNSPECI 08/26/2017 XUN MD, QUINTANILLA-YANCY Ot E11.9 TYPE 2 DIABETES MELLITUS WITHOUT COMPLIC 08/26/2017 GEORGE COTO MD Ot E66.01 MORBID (SEVERE) OBESITY DUE TO EXCESS CA 08/26/2017 GEORGE COTO MD, Ot F32.9 MAJOR DEPRESSIVE DISORDER, SINGLE EPISOD 08/26/2017 GEORGE COTO MD, Ot F41.9 ANXIETY DISORDER, UNSPECIFIED 08/26/2017 GEORGE COTO MD, Ot I10 ESSENTIAL (PRIMARY) HYPERTENSION 08/26/2017 GEORGE COTO MD, Ot J44.9 CHRONIC OBSTRUCTIVE PULMONARY DISEASE, U 08/26/2017 GEORGE COTO MD, Ot K21.9 GASTRO-ESOPHAGEAL REFLUX DISEASE WITHOUT 08/26/2017 GEORGE COTO MD, Ot M19.91 PRIMARY OSTEOARTHRITIS, UNSPECIFIED SITE 08/26/2017 GEORGE COTO MD Ot M79.7 FIBROMYALGIA 08/26/2017 GEORGE COTO MD, Ot Z68.42 BODY MASS INDEX (BMI) 45.0-49.9, ADULT 08/26/2017 GEORGE COTO MD, Ot Z79.899 OTHER CORRECTIONAL OFFICER (CURRENT) DRUG THERAPY 09/15/2017 SALOMÓN GATES, CODY Gan Ot M16.11 UNILATERAL PRIMARY OSTEOARTHRITIS, RIGHT 09/15/2017 SALOMÓN GATES, CODY Gan Ot M17.11 UNILATERAL PRIMARY OSTEOARTHRITIS, RIGHT 10/05/2017 SALOMÓN GATES, CODY Gan Ot M16.11 UNILATERAL PRIMARY OSTEOARTHRITIS, RIGHT 10/05/2017 SALOMÓN GATES, CODY Gan Ot M17.11 UNILATERAL PRIMARY OSTEOARTHRITIS, RIGHT 04/18/2018 BRANDIN JACKSON RADIO ENGINEERING TEACHER Ot Z12.31 ENCNTR SCREEN MAMMOGRAM FOR MALIGNANT NE 04/18/2018 BRANDIN JACKSON APRN Ot Z12.31 ENCNTR SCREEN MAMMOGRAM FOR MALIGNANT NE 05/01/2018 BRANDIN JACKSON APRN Ot Z12.31 ENCNTR SCREEN MAMMOGRAM FOR MALIGNANT NE 06/06/2018 BRANDIN JACKSON APRN Ot Z12.31 ENCNTR SCREEN MAMMOGRAM FOR MALIGNANT NE 06/06/2018 Ot 250.00 DIAB CHIDI WO COMPL, TYPE II OR UNSPEC TY 06/06/2018 Ot 272.4 HYPERLIPIDEMIA NEC/NOS 06/06/2018 JESSEE GRIMES DO Ot 070.70 UNSPECIFIED VIRAL HEPATITIS C WITHOUT HE 06/06/2018 JESSEE GRIMES DO Ot 305.1 TOBACCO USE DISORDER 06/06/2018 JESSEE GRIMES DO Ot 477.9 ALLERGIC RHINITIS NOS 06/06/2018 JESSEE GRIMES DO Ot 496 CHR AIRWAY OBSTRUCT NEC 06/06/2018 JESSEE GRIMES DO Ot 780.1 HALLUCINATIONS 06/06/2018 AJAY PEDERSON Ot 715.96 OSTEOARTHROS NOS-L/LEG 06/06/2018 AJAY PEDERSON Ot 717.2 DERANG POST MED MENISCUS 06/06/2018 REVEAL LISA GATES Ot 836.2 TEAR MENISCUS NEC-CURREN 06/06/2018 REVEAL LISA GATES Ot E000.8 OTHER EXTERNAL CAUSE STATUS 06/06/2018 REVEAL LISA GATES Ot E888.9 FALL NOS 06/06/2018 REVEAL LISA GATES Ot V72.81 [id number] CARDIOVASCULAR 06/06/2018 REVEAL LISA GATES Ot V74.8 SCREEN-BACTERIAL DIS NEC 06/06/2018 BRANDIN JACKSON APRN Ot Z12.31 ENCNTR SCREEN MAMMOGRAM FOR MALIGNANT NE 06/22/2018 Ot 250.00 DIAB CHIDI WO COMPL, TYPE II OR UNSPEC TY 06/22/2018 Ot 272.4 HYPERLIPIDEMIA NEC/NOS 06/22/2018 JESSEE GRIMES DO Ot 070.70 UNSPECIFIED VIRAL HEPATITIS C WITHOUT HE 06/22/2018 JESSEE GRIMES DO Ot 305.1 TOBACCO USE DISORDER 06/22/2018 JESSEE GRIMES DO Ot 477.9 ALLERGIC RHINITIS NOS 06/22/2018 JESSEE GRIMES DO Ot 496 CHR AIRWAY OBSTRUCT NEC 06/22/2018 JESSEE GRIMES DO Ot 780.1 HALLUCINATIONS 06/22/2018 AJAY PEDERSON Ot 715.96 OSTEOARTHROS NOS-L/LEG 06/22/2018 AJAY PEDERSON Ot 717.2 DERANG POST MED MENISCUS 06/22/2018 REVEAL LISA GATES Ot 836.2 TEAR MENISCUS NEC-CURREN 06/22/2018 REVEAL LISA GATES Ot E000.8 OTHER EXTERNAL CAUSE STATUS 06/22/2018 REVEAL LISA GATES Ot E888.9 FALL NOS 06/22/2018 REVEAL LISA GATES Ot V72.81 WZTF-UIU-OHGIODVXO CARDIOVASCULAR 06/22/2018 KATTY GATES, LISA Gunn Ot V74.8 SCREEN-BACTERIAL DIS NEC 06/22/2018 BRANDIN JACKSON APRN Ot Z12.31 ENCNTR SCREEN MAMMOGRAM FOR MALIGNANT NE Procedures Code [place] [address] HEMOCCULT 10/17/2012 00230 UA LONG DIP 10/17/2012 61112 ROUTINE VENIPUNCTURE 12/20/2013 19336 INFLUENZA A & B (IN-HOUSE) 12/20/2013 13376 UA W/ CULTURE IF INDICATED 12/20/2013 14201 URINE DRUG SCREEN (IN-HOUSE ) 12/20/2013 28460 A1C (IN-HOUSE) 12/20/2013 39960 MONO TEST (IN-HOUSE) 12/20/2013 [id number] GFR CALC (RESULT ONLY) 12/20/2013 65124 CMP 12/20/2013 4081608 HCV INDEX (RESULT ONLY) 12/20/2013 78085 HEPATITIS PROFILE 12/20/2013 68000 CBC 12/21/2013 86659 MAMMOGRAM, SCREENING 01/16/2014 60947 CULTURE UROGENITAL 01/19/2014 94704 XRAY KNEE RIGHT 3 VIEWS 03/31/2014 11099 MRI EXTREMITY, LOWER RIGHT, W/O CONTRAST 03/31/2014 ORTHOPEDI DILSHAD PENG 03/31/2014 Pulmonary Jessee Grimes 05/08/2014 66956 A1C (IN-HOUSE) 06/03/2014 25908 UA W/ CULTURE IF INDICATED 06/03/2014 33800 MICRO ALBUMIN-IN HOUSE 06/03/2014 41170 UA W/ CULTURE IF INDICATED 06/16/2014 70086 CULTURE URINE 06/17/2014 65915 HEMOCCULT 06/21/2014 78586 ROUTINE VENIPUNCTURE 07/04/2014 58976 UA LONG DIP 07/04/2014 24961 URINE DRUG SCREEN (IN-HOUSE ) 07/04/2014 49496 CBC 07/04/2014 6060201 GFR CALC (RESULT ONLY) 07/04/2014 73739 CMP 07/04/2014 63263 URINE DRUG SCREEN (IN-HOUSE ) 09/04/2014 Results There is no data. Encounters ACCT No. Visit Date/Time Discharge Status Pt. Type Provider Facility Loc./Unit Complaint [id number] 09/04/2014 09:36:00 09/04/2014 23:59:59 CLS Outpatient MIGUELITO YANES APRNKEITH [place] [id number] 09/04/2014 09:36:00 09/04/2014 23:59:59 CLS Outpatient JOAQUÍN SCHWARTZ MAURO [place] [id number] 07/04/2014 09:42:00 07/04/2014 23:59:59 CLS Outpatient JOAQUÍN SCHWARTZ MAURO [place] [id number] 07/04/2014 09:42:00 07/04/2014 23:59:59 CLS Outpatient JOAQUÍN SCHWARTZ MAURO [place] [id number] 06/16/2014 11:11:00 06/16/2014 23:59:59 CLS Outpatient JERMAIN SCHWARTZ SOILA [place] [id number] 06/16/2014 11:11:00 06/16/2014 23:59:59 CLS Outpatient JERMAIN SCHWARTZ SOILA [place] [id number] 05/13/2014 00:00:00 05/13/2014 23:59:59 CLS Outpatient JOAQUÍN SCHWARTZ MAURO [place] [id number] 03/31/2014 10:29:00 03/31/2014 23:59:59 CLS Outpatient CRALOS HAYESPELON [id number] 03/28/2014 16:25:00 03/28/2014 23:59:59 CLS Outpatient GONZALEZ DOPELON [id number] 03/11/2014 11:46:00 03/11/2014 23:59:59 CLS Outpatient ALEXANDER ANGEL MD [id number] 02/14/2014 15:03:00 02/14/2014 23:59:59 CLS Outpatient CARLOS HAYESPELON [id number] 01/31/2014 00:00:00 01/31/2014 23:59:59 CLS Outpatient JOAQUÍN SCHWARTZ MAURO [place] [id number] 01/23/2014 15:19:00 01/23/2014 23:59:59 CLS Outpatient GONZALEZ DOPELON [id number] 01/16/2014 13:11:00 01/16/2014 23:59:59 CLS Outpatient JERMAIN SCHWARTZ [place] [id number] 01/15/2014 11:09:00 01/15/2014 23:59:59 CLS Outpatient GONZALEZ DOPELON [id number] 01/06/2014 08:08:00 01/06/2014 23:59:59 CLS Outpatient JERMAIN SCHWARTZ SOIL[place] [id number] 12/26/2013 13:20:00 12/26/2013 23:59:59 CLS Outpatient JOAQUÍN BEACHMAURO [facility] [id number] 12/20/2013 13:08:00 12/20/2013 23:59:59 CLS Outpatient JOAQUÍN BEACHN MAURO [place] [id number] 09/25/2013 11:03:00 09/25/2013 23:59:59 CLS Outpatient PELON GONZALEZ DO [id number] 01/15/2013 14:27:00 01/15/2013 23:59:59 CLS Outpatient PELON GONZALEZ DO [id number] 12/25/2012 09:50:00 12/25/2012 23:59:59 CLS Outpatient [id number] 10/17/2012 14:45:00 10/17/2012 23:59:59 CLS Outpatient [id number] 08/12/2015 10:00:46 ACT Document Registration [id number] 04/17/2018 08:02:00 04/17/2018 23:59:59 CLS Outpatient BRANDIN JACKSON RADIO ENGINEERING TEACHER [facility] RAD SCREENING [id number] 09/14/2017 15:26:00 09/14/2017 23:59:59 CLS Outpatient CODY LORENZANA MD [facility] RAD M16.11 [id number] 08/27/2017 03:18:00 08/27/2017 23:59:59 CLS Preadmit GEORGE COTO MD [facility] ONC [id number] 08/23/2017 12:16:00 08/26/2017 00:01:00 DIS Outpatient GEORGE COTO MD [facility] ONC [id number] 04/13/2017 09:52:00 04/13/2017 23:59:59 CLS Outpatient BRANDIN JACKSON RADIO ENGINEERING TEACHER [facility] RAD Z12.31 [id number] 03/16/2016 13:05:00 03/16/2016 23:59:59 CLS Outpatient CODY LORENZANA MD [facility] RAD 6 MONTH FOLLOW UP [id number] 10/08/2015 10:30:00 10/08/2015 23:59:59 CLS Outpatient BRANDIN JACKSON RADIO ENGINEERING TEACHER [facility] RAD OSTEOPOROSIS [id number] 08/12/2015 09:37:00 08/12/2015 13:00:00 DIS Outpatient RHONDA GARCES MD [facility] RECTAL BLEEDING [id number] 08/07/2015 06:42:00 08/07/2015 23:59:59 CLS Outpatient RHONDA GARCES MD [facility] PREOP RECTAL BLEEDING [id number] 08/06/2015 12:32:00 08/06/2015 23:59:59 CLS Outpatient BRANDIN JACKSON RADIO ENGINEERING TEACHER [facility] RAD HIP PAIN,LOW BACK PAIN [id number] 05/06/2015 09:19:00 05/06/2015 23:59:59 CLS Outpatient BRANDIN JACKSON RADIO ENGINEERING TEACHER [facility] RAD ABDOMINAL PAIN [id number] 03/03/2015 13:55:00 03/03/2015 23:59:59 CLS Outpatient JOAN CRANE DO [facility] RAD ABN MAMMO, 6 MONTH FOLLOW UP [id number] 10/16/2014 12:39:00 10/21/2014 14:05:00 DIS Outpatient ELI KOROMA BROKERAGE MANAGER [facility] REHAB POOR GAIT BACK AND LEG PAIN [id number] 09/15/2014 18:52:00 09/15/2014 19:58:00 DIS Emergency TIA BOATENG MD [facility] ER POSSIBLE STROKE [id number] 09/12/2014 14:03:00 09/12/2014 14:50:00 DIS Emergency MARIUM DÍAZ RADIO ENGINEERING TEACHER [facility] ER RT KNEE PAIN [id number] 09/05/2014 11:37:00 09/05/2014 23:59:59 CLS Outpatient SOILA ALY RADIO ENGINEERING TEACHER [facility] RAD SCREENING [id number] 05/02/2014 06:00:00 05/02/2014 10:40:00 DIS Outpatient LISA ALANIZ MD [facility] RIGHT MEDIAL MENISCUS TEAR [id number] 04/28/2014 07:43:00 04/28/2014 23:59:59 CLS Outpatient LISA ALANIZ MD [facility] PREOP RIGHT MEDIAL MENISCUS TEAR [id number] 04/15/2014 13:52:00 04/15/2014 23:59:59 CLS Outpatient AJAY PEDERSON [facility] RAD RT KNEE PAIN [id number] 04/11/2014 21:13:00 04/12/2014 01:45:00 DIS Outpatient JESSEE GRIMES DO [facility] SLEEP SNORING,EXCESSIVE DAYTIME SLEEPINESS [id number] 03/05/2014 07:20:00 03/05/2014 23:59:59 CLS Outpatient JESSEE GRIMES DO [facility] RT COPD,SEASONAL ALLERGIES [id number] 02/06/2014 10:37:00 02/06/2014 23:59:59 CLS Outpatient [id number] 08/04/2013 01:28:00 08/04/2013 02:40:00 DIS Emergency TASNEEM GATES, TIA [place] [facility] ER SOB, COUGH [id number] 04/25/2013 07:46:00 04/25/2013 23:59:59 CLS Outpatient [id number] 07/29/2015 06:22:00 Document Registration [id number] 02/06/2013 10:47:00 Document Registration
[2019-03-29] MEDS ORDERED: NS IV 500 ML 500 ML IV PRN (09:17)
[2019-03-29] MEDS ORDERED: HURRICAINE EXT TUBE (BENZOCAINE) XX ONE (09:30)
[2019-03-29] MEDS ORDERED: MIDAZOLAM 2 MG/2 ML (VERSED) VIAL IVP ONE (09:30)
[2019-03-29] MEDS ORDERED: fentaNYL INJECTION 100 MCG/2 ML AMP IVP ONE (09:30)
[2019-03-29] MEDS ORDERED: LIDOCAINE JELLY 2% 6 ML SYRINGE TOP ONE (09:30)
[2019-03-29] MEDS ORDERED: NS IV 500 ML 500 ML ONE (09:34)
[2019-03-29 10:30] VITALS: BP 142/94
[2019-03-29] MEDS ORDERED: LIDOCAINE JELLY 2% 6 ML SYRINGE ONE (10:55)
[2019-03-29] MEDS ORDERED: fentaNYL INJECTION 100 MCG/2 ML AMP ONE ×3 (10:55→11:25)
[2019-03-29] MEDS ORDERED: MIDAZOLAM 2 MG/2 ML (VERSED) VIAL ONE ×6 (10:56→11:16)
[2019-03-29] MEDS ORDERED: HURRICAINE EXT TUBE (BENZOCAINE) ONE (10:56)
--- NOTE | 2019-03-29 11:03 | Progress Note-Pre Operative ---
Pre-Operative Progress Note H&P Reviewed The H&P was reviewed, patient examined and no changes noted. Date Seen by Provider: March 29, 2019 Time Seen by Provider: 10:00 Date H&P Reviewed: March 29, 2019 Time H&P Reviewed: 10:00 Pre-Operative Diagnosis: GERD, rectal bleed RHONDA GARCES MD March 29, 2019 11:03
--- NOTE | 2019-03-29 11:03 | Conscious Sedation/ASA ---
Conscious Sedation Pre-Proced Time 10:00 ASA Score 2 For ASA 3 and 4: Consider anesthesia and medical clearance. Also, for patients with a history of failed moderate sedation consider anesthesia. Airway Lungs Heart ASA score ASA 1: a normal healthy patient ASA 2: a patient with a mild systemic disease (mid diabetes, controlled hypertension, obesity ASA 3: a patient with a severe systemic disease that limits activity (angina , COPD, prior Myocardial infarction) ASA 4: a patient with an incapacitating disease that is a constant threat to life (CHF, renal failure) ASA 5: a moribund patient not expected to survive 24 hrs. (ruptured aneurysm) ASA 6: a declared brain- patient whose organs are being harvested. For emergent operations, add the letter E after the classification Mallampati Classification Grade 2 Sedation Plan Analgesia, Amnesia, Plan communicated to team members, Discussed options with patient/fam, Discussed risks with patient/fam The patient is an appropriate candidate to undergo the planned procedure, sedation, and anesthesia. The patient immediately re-assessed prior to indication. RHONDA GARCES MD March 29, 2019 11:03
[2019-03-29] MEDS ORDERED: PANT40TA2 PO (11:05)
--- NOTE | 2019-03-29 11:06 | Discharge Inst-Surgical ---
D/C Lap Instructions-KIDO New, Converted, or Re-Newed RX: RX on Chart Follow Up Activity as tolerated High Fiber Diet 25g or more per day Avoid Alcohol, Caffeine, Spicy [place] and Acid foods. Drink 64 fluid oz or more of fluids per day. Symptoms to Report: Fever over 101 degree F, Nausea/Vomiting If any problems/questions: Contact your physician or go to Emergency Room RHONDA GARCES MD March 29, 2019 11:06
[2019-03-29] MEDS ORDERED: ONDANSETRON 4 MG/2 ML (SDV) Z0FRAN IV PRN (11:15)
[2019-03-29] MEDS ORDERED: HYDROcodone/APAP 5 MG/325 MG (LORTAB) TAB PO PRN (11:15)
[2019-03-29] MEDS ORDERED: ACETAMINOPHEN 325 MG TABLET PO PRN (11:15)
[2019-03-29] MEDS ORDERED: morphine INJ 10 MG/ML 1ML (SYR OR VIAL) IV PRN (11:15)
[2019-03-29 12:05] VITALS: BP 129/63
[2019-03-29 12:35] VITALS: BP 122/80
--- NOTE | 2019-03-29 12:58 | Progress Note-Post Operative ---
Post-Operative Progess Note Surgeon (s)/Body Corporate Manager (s) Surgeon RHONDA GARCES MD Body Corporate Manager: none Pre-Operative Diagnosis GERD, rectal bleed Post-Operative Diagnosis reflux esophagitis(stage 2), small HH(2cm), moderate gastritis. chronic stage 2-3 ext and int hemorrhoids, mild sigmoid diverticulosis. Procedure & Operative Findings Date of Procedure 03/29/19 Procedure Performed/Findings EGD with bx. Colonoscopy. Anesthesia Type cs Estimated Blood Loss Estimated blood loss (mL): minimal Specimens/Packing Specimens Removed ge jxn, antrum RHONDA GARCES MD March 29, 2019 12:58
[2019-03-29 13:15] VITALS: BP 122/80
--- NOTE | 2019-03-29 22:27 | OPERATIVE REPORT ---
DATE OF SERVICE: 03/29/2019 ATTENDING PRIMARY CARE PHYSICIAN: Dr. Carlton. PREOPERATIVE DIAGNOSES: Gastroesophageal reflux disease, loose stools and diarrhea. POSTOPERATIVE DIAGNOSES: Reflux esophagitis stage II, small to moderate size hiatal hernia approximately 2.5 cm in size, moderate severity gastritis. No formal ulcerations, polyps or any neoplasms. Pylorus and duodenum appeared normal. Chronic between stage II and III external and internal hemorrhoids with some mild irritation, inflammation and pruritus. Mild sigmoid diverticulosis. PROCEDURE: EGD with biopsy, colonoscopy. SURGEON: Rhonda Garces MD ANESTHESIA: Conscious sedation. ESTIMATED BLOOD LOSS: Minimal. FINDINGS: As above in the postoperative diagnoses. DISPOSITION: The patient tolerated the procedure well. INDICATIONS: The patient is a 58-year-old female who has had a number of different gastrointestinal issues for a number of years. She had rectal bleeding in 2002 and underwent a colonoscopy and was found to have inflammation in the rectosigmoid junction; however, biopsy did not show any active colitis. In 2012, she was having epigastric burning sensation and underwent an EGD and colonoscopy in 04/2013, which showed a reflux esophagitis stage II as well as a mild gastritis. Colonoscopy showed chronic stage II external and internal hemorrhoids as well as a mild sigmoid diverticulosis. No inflammatory changes. She states that she has noticed some blood per rectum, which is a small amount and self-limited. She also reports that she has had worsening epigastric pain. She does take a number of different medications including nonsteroidal anti-inflammatories. She states that the majority of her symptoms are most likely related to moisture and hygiene issues as well as pruritus. DESCRIPTION OF PROCEDURE: The patient was brought to the endoscopy suite, laid in left lateral decubitus position with head slightly elevated. After adequate IV pain and sedating medications and conscious sedation anesthesia, the mouthpiece was applied. The endoscope was placed in the mouth, visualizing the pharynx and hypopharyngeal region. Vocal cords, epiglottis and vallecula identified and appeared to be normal. The endoscope was gently intubated the esophageal opening and esophagus was insufflated. The endoscope was then advanced to the first, second and third portions of the esophagus at the level of the GE junction, a reflux esophagitis stage II was identified. There were no ulcers or strictures identified in this region. A biopsy was taken with forceps with visualization of good hemostasis. The endoscope was then easily advanced in the stomach and endoscope was retroflexed, visualizing a small to medium size hiatal hernia approximately 2.5 cm in size. There was a moderate severity gastritis; however, no formal ulcerations, polyps or any neoplasms. A biopsy was taken of the antrum to rule out H. pylori with forceps with visualization of good hemostasis. The endoscope was then advanced to the pylorus and the first and second portion of duodenum, which appeared normal with no distal obstructions. The endoscope was then slowly withdrawn while taking a second look and suctioning of residual air with no additional findings. The patient tolerated this portion of the procedure well. We will start her back on Protonix 40 mg daily; however, she will need to proceed with the necessary lifestyle and diet accommodation including small and more frequent meals, avoidance of eating at night as well as head elevation while lying supine. She also needs to avoid caffeinated beverages and also needs to proceed with regularly scheduled diet and exercise regimen for weight loss as well. Under the same anesthesia, we then proceeded with the colonoscopy portion of procedure. A digital rectal examination was performed, which revealed chronic between stage II and III external and internal hemorrhoids identified with some mild edema and inflammation. They are also pruritic. There was no active bleeding. Normal sphincter tone was felt and there were no palpable masses. The endoscope was then intubated to the anus and rectum gently insufflated. The endoscope was then advanced to the valves of Garcia with no polyps or any neoplasms identified. At the sigmoid colon, a mild sigmoid diverticulosis was identified. The endoscope was then advanced to the remainder of the descending, transverse, and ascending colon to the cecum. These segments were normal. There were no polyps or any neoplasms identified. The endoscope was then slowly withdrawn while taking a second look and suctioning of residual air with no additional findings. The patient tolerated the procedure well. We will start her on Lotrisone cream b.i.d. to the anal region as well as the perineum due to most likely a fungal infection. She needs to proceed with the necessary lifestyle and diet accommodation including incorporation of a high-fiber diet with at least 30 grams of fiber daily to promote soft stools on a daily basis and not episodes of liquid diarrhea, which will cause increased moisture within the perineum and increase the risk of the tinea crura infectious etiology. Job ID: [id number] DocumentID: [id number] Dictated Date: 03/29/2019 11:58:20 Housekeeping Manager Date: 03/29/2019 22:26:59 Dictated By: RHONDA GARCES MD
== END 2019-03-29 13:15 | disposition home or self-care (01) ==
LOC: ENDO 08:55
PROVIDERS: ATTEND Surgery
DX: R19.7 Diarrhea, unspecified (principal); K57.30 Diverticulosis of large intestine without perforation or abscess without bleeding; K64.1 Second degree hemorrhoids; L29.0 Pruritus ani; K21.0 Gastro-esophageal reflux disease with esophagitis; K44.9 Diaphragmatic hernia without obstruction or gangrene; K29.70 Gastritis, unspecified, without bleeding; E11.9 Type 2 diabetes mellitus without complications; B19.20 Unspecified viral hepatitis C without hepatic coma; E78.00 Pure hypercholesterolemia, unspecified; I10 Essential (primary) hypertension; M79.7 Fibromyalgia; F41.9 Anxiety disorder, unspecified; F32.9 Major depressive disorder, single episode, unspecified; Z87.891 Personal history of nicotine dependence; Z79.84 Long term (current) use of oral hypoglycemic drugs; Z79.899 Other long term (current) drug therapy
CPT/HCPCS: 82962; 88305

== ENCOUNTER → 2019-04-30 | Outpatient (CLI) | payer MEDICARE, MEDICAID ==
[~2019-04-30] MED LIST changes: +PANT40TA2 PO
--- NOTE | 2019-04-30 16:29 | Diagnostic Imaging Report ---
INDICATION: Routine screening. COMPARISON is made with prior mammograms from 04/17/2018 and 04/13/2017. 2-D and 3-D bilateral screening mammography was performed with CAD. FINDINGS: Scattered fibroglandular densities are identified bilaterally. Scattered benign-appearing calcifications are again noted. Benign nodules in both breasts appear stable. No spiculated mass or malignant appearing microcalcifications are seen. Axillae are unremarkable. IMPRESSION: BI-RADS category 2. No mammographic features suspicious for malignancy are identified. ACR BI-RADS Category 2: Benign findings. Result letter will be mailed to the patient. Note: At least 10% of breast cancer is not imaged by mammography. Dictated by: Dictated on workstation # [id number]
== END ==
LOC: RAD 12:42
DX: Z12.31 Encounter for screening mammogram for malignant neoplasm of breast (principal)
CPT/HCPCS: 77067

== ENCOUNTER → 2020-05-12 | Outpatient (CLI) | payer MEDICARE, MEDICAID ==
[~2020-05-12] MED LIST changes: +ACHD5005 PO; -HYDR-3812 PO
--- NOTE | 2020-05-12 15:25 | Diagnostic Imaging Report ---
INDICATION: Routine screening. COMPARISON: 04/30/2019 and 04/17/2018. TECHNIQUE: 2D and 3D bilateral screening mammography was performed with CAD. FINDINGS: Scattered fibroglandular densities are identified bilaterally. Circumscribed nodules in both breasts appear stable. There are benign calcifications throughout both breasts. No spiculated mass or malignant appearing microcalcifications are seen. The axillae are unremarkable. IMPRESSION: No mammographic features suspicious for malignancy are identified. ACR BI-RADS Category 2: Benign findings. Result letter will be mailed to the patient. Note: At least 10% of breast cancer is not imaged by mammography. Dictated by: Dictated on workstation # [id number]
== END ==
LOC: RAD 12:41
PROVIDERS: ATTEND Nurse Practitioner Family
DX: Z12.31 Encounter for screening mammogram for malignant neoplasm of breast (principal)
CPT/HCPCS: 77063; 77067

== ENCOUNTER 2020-09-18 10:49 | Outpatient (RCR) | payer MEDICARE, MEDICAID ==
[2020-09-07 10:19] LABS: BASOPHILS # (AUTO) 0.1 10^3/uL (0.0-0.1); BASOPHILS % (AUTO) 1 % (0-10); EOSINOPHILS # (AUTO) 0.1 10^3/uL (0.0-0.3); EOSINOPHILS % (AUTO) 1 % (0-10); HEMATOCRIT 42 % (35-52); HEMOGLOBIN 13.5 g/dL (11.5-16.0); LYMPHOCYTES # (AUTO) 2.7 10^3/uL (1.0-4.0); LYMPHOCYTES % (AUTO) 23 % (12-44); MEAN CORPUSCULAR HEMOGLOBIN 31 pg (25-34); MEAN CORPUSCULAR HGB CONC 32 g/dL (32-36); MEAN CORPUSCULAR VOLUME 97 fL (80-99); MEAN PLATELET VOLUME 9.6 fL (9.0-12.2); MONOCYTES # (AUTO) 0.7 10^3/uL (0.0-1.0); MONOCYTES % (AUTO) 6 % (0-12); NEUTROPHILS # (AUTO) 8.3 10^3/uL (1.8-7.8); NEUTROPHILS % (AUTO) 70 % (42-75); PLATELET COUNT 423 10^3/uL (130-400); WHITE BLOOD COUNT 11.9 10^3/uL (4.3-11.0)
[2020-09-07 10:54] LABS: ALANINE AMINOTRANSFERASE 17 U/L (0-55); ALBUMIN 4.3 GM/DL (3.2-4.5); ALKALINE PHOSPHATASE 45 U/L (40-136); BILIRUBIN,TOTAL 0.4 MG/DL (0.1-1.0); BUN/CREATININE RATIO 21; CALCIUM 10.4 MG/DL (8.5-10.1); CARBON DIOXIDE 25 MMOL/L (21-32); CHLORIDE 102 MMOL/L (98-107); CREATININE SERUM 0.92 MG/DL (0.60-1.30); GFR ESTIMATED > 60; GLUCOSE 174 MG/DL (70-105); POTASSIUM 4.7 MMOL/L (3.6-5.0); SODIUM 139 MMOL/L (135-145); TOTAL PROTEIN 7.6 GM/DL (6.4-8.2)
== END 2020-12-06 | disposition home or self-care (01) ==
LOC: ONC 10:49
PROVIDERS: ATTEND Internal Medicine Hematology & Oncology
DX: D72.829 Elevated white blood cell count, unspecified (principal); B19.20 Unspecified viral hepatitis C without hepatic coma; M79.7 Fibromyalgia; E11.9 Type 2 diabetes mellitus without complications; E66.9 Obesity, unspecified; J32.9 Chronic sinusitis, unspecified; K21.9 Gastro-esophageal reflux disease without esophagitis; I10 Essential (primary) hypertension; J44.9 Chronic obstructive pulmonary disease, unspecified
CPT/HCPCS: 80053; 81270; 85025; G0463; 99213; 99214

== ENCOUNTER 2021-03-26 17:59 | Emergency (ER) | payer MEDICARE, MEDICAID ==
[~2021-03-26] VITALS: Ht 160 cm; Wt 104.0 kg
[~2021-03-26 17:59] MED LIST changes: -LISI10TA2 PO; +LISI10TA25 PO; -LISI40TA PO; +LISI40TA9 PO
--- NOTE | 2021-03-26 18:14 | ED General ---
General Stated Complaint: KINNEY, TASTE,ITCHY Source of Information: Patient Exam Limitations: No Limitations History of Present Illness Date Seen by Provider: Mar 26, 2021 Time Seen by Provider: 18:12 Initial Comments To ER with reports of concerns that she is having an allergic reaction to some new laundry detergent. This started a week ago when she switched brands of laundry detergent. She has a headache, she has had some diarrhea, she has itchy skin. She felt like her tongue was swelling. She denies a cough or shortness of breath. She has had some chills. She reports eyes burning. Has not had her Covid vaccines. Timing/Duration: 1 Week Severity: Moderate Associated Systoms: Headaches, Other Allergies and Home Medications Allergies Coded Allergies: No Known Drug Allergies (Unverified , 04/24/12) Home Medications Albuterol Sulfate 1 Puff Puff, 2 PUFF IH Q4H PRN for SHORTNESS OF BREATH, (Reported) 1 PUFF = 90 MCG Budesonide/Formoterol Fumarate 10.2 Gm Hfa.aer.ad, 2 PUFF IH BID, (Reported) Diazepam 2 Mg Tablet, 2 MG PO PRN, (Reported) Hydrochlorothiazide 25 Mg Tablet, 25 MG PO DAILY, (Reported) Hydrocodone Bit/Acetaminophen 1 Each Tablet, 1 TAB PO Q4-6HR PRN for PAIN-MILD, (Reported) Lisinopril 40 Mg Tablet, 40 MG PO DAILY, (Reported) Metformin HCl 1,000 Mg Tablet, 1,000 MG PO BID, (Reported) Pantoprazole Sodium 40 Mg Tablet.dr, 40 MG PO DAILY Prescribed by: RHONDA GARCES on 03/29/19 1105 Patient Home Medication List Home Medication List Reviewed: Yes Review of Systems Review of Systems Constitutional: see HPI, chills, malaise EENTM: see HPI Respiratory: no symptoms reported Cardiovascular: no symptoms reported Gastrointestinal: diarrhea Genitourinary: no symptoms reported Musculoskeletal: no symptoms reported Skin: see HPI, pruritus Psychiatric/Neurological: No Symptoms Reported Hematologic/Lymphatic: No Symptoms Reported Past Xnacbdt-Rnzpus-Wlvqaw Hx Patient Social History Former Smoker, Quit: March 27, 2017 2nd Hand Smoke Exposure: No (OCCASIONALLY SMOKES CIGARETTES) Recent Hopitalizations: No Seasonal Allergies Seasonal Allergies: No Past Medical History Surgeries: Yes (COLONOSCOPY, D&C, LIVER BIOPSY) Orthopedic Respiratory: Yes Asthma Cardiac: Yes Hypertension Neurological: No (BELLS PALSY) Reproductive Disorders: No Sexually Transmitted Disease: No Genitourinary: No Gastrointestinal: Yes Gastroesophageal Reflux Musculoskeletal: Yes Endocrine: Yes Diabetes, Non-Insulin dep HEENT: Yes (GLASSES, DENTURES) Cancer: No Psychosocial: Yes Anxiety Integumentary: No Blood Disorders: Yes (HEP C) Adverse Reaction/Blood Tranf: No Physical Exam Vital Signs Vital Signs - First Documented 03/26/21 03/26/21 18:05 18:40 Temp 37.2 Pulse 126 Resp 20 B/P (MAP) 155/133 (140) Pulse Ox 99 O2 Delivery Room Air O2 Flow Rate 99.00 Capillary Refill : Height, Weight, BMI Height: 5'3.00" Weight: 230lbs. 0.0oz. 104.493182nf; 40.7 BMI Method:Stated General Appearance: No Apparent Distress, WD/WN, Other (Appears dyspneic but denies feeling dyspneic. Oxygen saturation 99% room air. Heart rate 140, declines to 120 quickly upon rest. This is a sinus rhythm) Eyes: Bilateral Eye Normal Inspection, Bilateral Eye PERRL, Bilateral Eye EOMI HEENT: PERRL/EOMI, TMs Normal Neck: Full Range of Motion, Normal Inspection Respiratory: No Accessory Muscle Use, No Respiratory Distress Cardiovascular: Regular Rate, Rhythm, Normal Peripheral Pulses Gastrointestinal: Normal Bowel Sounds, Non Tender, Soft Extremity: Normal Capillary Refill, Normal Inspection Neurologic/Psychiatric: Alert Focused Exam Lactate Level 03/26/21 18:35: Lactic Acid Level 1.28 Lactic Acid Level Laboratory Tests Test 03/26/21 18:35 Lactic Acid Level 1.28 MMOL/L (0.50-2.00) Progress/Results/Core Measures Suspected Sepsis SIRS Temperature: Pulse: Respiratory Rate: Laboratory Tests 03/26/21 18:17: White Blood Count 17.2H Blood Pressure / Mean: 03/26/21 18:35: Lactic Acid Level 1.28 Laboratory Tests 03/26/21 18:17: Creatinine 1.19, Platelet Count 438H, Total Bilirubin 0.3 Results/Orders Lab Results Laboratory Tests Test 03/26/21 18:10 03/26/21 18:17 03/26/21 18:35 03/26/21 21:32 Range/Units Coronavirus 2019 ([facility]) Not Detected Not Detecte White Blood Count 17.2 H 4.3-11.0 10^3/uL Red Blood Count 4.18 3.80-5.11 10^6/uL Hemoglobin 13.0 11.5-16.0 g/dL Hematocrit 40 35-52 % Mean Corpuscular Volume 96 80-99 fL Mean Corpuscular Hemoglobin 31 25-34 pg Mean Corpuscular Hemoglobin Concent 33 32-36 g/dL Red Cell Distribution Width 13.3 10.0-14.5 % Platelet Count 438 H 130-400 10^3/uL Mean Platelet Volume 10.2 9.0-12.2 fL Immature Granulocyte % (Auto) 0 % Neutrophils (%) (Auto) 65 42-75 % Lymphocytes (%) (Auto) 27 12-44 % Monocytes (%) (Auto) 7 0-12 % Eosinophils (%) (Auto) 1 0-10 % Basophils (%) (Auto) 1 0-10 % Neutrophils # (Auto) 11.2 H 1.8-7.8 10^3/uL Lymphocytes # (Auto) 4.6 H 1.0-4.0 10^3/uL Monocytes # (Auto) 1.1 H 0.0-1.0 10^3/uL Eosinophils # (Auto) 0.2 0.0-0.3 10^3/uL Basophils # (Auto) 0.1 0.0-0.1 10^3/uL Immature Granulocyte # (Auto) 0.1 0.0-0.1 10^3/uL Neutrophils % (Manual) 61 % Lymphocytes % (Manual) 32 % Monocytes % (Manual) 5 % Band Neutrophils 2 % Blood Morphology Comment NORMAL D-Dimer 0.27 0.00-0.49 UG/ML Sodium Level 138 135-145 MMOL/L Potassium Level 3.8 3.6-5.0 MMOL/L Chloride Level 104 98-107 MMOL/L Carbon Dioxide Level 21 21-32 MMOL/L Anion Gap 13 5-14 MMOL/L Blood Urea Nitrogen 22 H 7-18 MG/DL Creatinine 1.19 0.60-1.30 MG/DL Estimat Glomerular Filtration Rate 46 BUN/Creatinine Ratio 18 Glucose Level 182 H 70-105 MG/DL Calcium Level 11.1 H 8.5-10.1 MG/DL Corrected Calcium 10.9 H 8.5-10.1 MG/DL Total Bilirubin 0.3 0.1-1.0 MG/DL Aspartate Amino Transf (AST/SGOT) 13 5-34 U/L Alanine Aminotransferase (ALT/SGPT) 34 0-55 U/L Alkaline Phosphatase 57 40-136 U/L Troponin I < 0.028 <0.028 NG/ML C-Reactive Protein High Sensitivity 1.45 H 0.00-0.50 MG/DL B-Type Natriuretic Peptide < 10.0 <100.0 PG/ML Total Protein 7.6 6.4-8.2 GM/DL Albumin 4.3 3.2-4.5 GM/DL Procalcitonin 0.02 <0.10 NG/ML Lactic Acid Level 1.28 0.50-2.00 MMOL/L Urine Color YELLOW Urine Clarity CLEAR Urine pH 5.5 5-9 Urine Specific [place] 1.025 H 1.016-1.022 Urine Protein NEGATIVE NEGATIVE Urine Glucose (UA) NEGATIVE NEGATIVE Urine Ketones NEGATIVE NEGATIVE Urine Nitrite NEGATIVE NEGATIVE Urine Bilirubin NEGATIVE NEGATIVE Urine Urobilinogen 0.2 < = 1.0 MG/DL Urine Leukocyte Esterase NEGATIVE NEGATIVE Urine RBC (Auto) 1+ H NEGATIVE Urine RBC 0-2 /HPF Urine WBC NONE /HPF Urine Crystals PRESENT H /LPF Urine Amorphous Sediment FEW DAVID URATES H /LPF Urine Bacteria TRACE /HPF Urine Casts NONE /LPF Urine Mucus NEGATIVE /LPF Urine Culture Indicated NO Micro Results Microbiology 03/26/21 Influenza Types A,B Antigen (BREANNA) - Final, Complete 03/26/21 Influenza Types A,B Antigen (BRAENNA) - Final, Complete My Orders Orders - MARIUM DÍAZ SATIN FINISHER Cbc With Automated Diff (03/26/21 18:11) Comprehensive Metabolic Panel (03/26/21 18:11) BNP (03/26/21 18:11) Fibrin Degradation Products (03/26/21 18:11) Ekg Tracing (03/26/21 18:11) Hs C Reactive Protein (03/26/21 18:11) Ed Iv/Invasive Line Start (03/26/21 18:11) Troponin I (03/26/21 18:11) Chest 1 View, Ap/Pa Only (03/26/21 18:11) Influenza A And B Antigens (03/26/21 18:21) Manual Differential (03/26/21 18:17) Blood Culture (03/26/21 18:33) Lactic Acid Analyzer (03/26/21 18:33) Ua Culture If Indicated (03/26/21 18:49) Influenza A And B Antigens (03/26/21 18:49) Ns Iv 1000 Ml (Sodium Chloride 0.9%) (03/26/21 19:00) Covid 19 Inhouse Test (03/26/21 18:51) Procalcitonin (Pct) (03/26/21 19:23) Ns Iv 1000 Ml (Sodium Chloride 0.9%) (03/26/21 19:45) Ct Abdomen/Pelvis Wo (03/26/21 19:41) Vital Signs/I&O 03/26/21 03/26/21 03/26/21 18:05 18:05 18:40 Temp 37.2 37.2 Pulse 126 105 Resp 20 20 B/P (MAP) 155/133 (140) 165/91 Pulse Ox 99 O2 Delivery Room Air Room Air Room Air O2 Flow Rate 99.00 Capillary Refill : Diagnostic Imaging Diagonstic Imaging: Xray Plain Films/CT/US/NM/MRI: chest Comments NAME: BASILIO [facility]IR[facility]GA [facility] REC#: [id number] PT STATUS: REG ER : 1960 PHYSICIAN: MARIUM DÍAZ APRN ADMIT DATE: 03/26/21/ER Draft Date of Exam:03/26/21 CHEST 1 VIEW, AP/PA ONLY INDICATION: Palpitations Frontal chest obtained at 7:10 p.m. and compared to 03/05/2014. Heart and mediastinal silhouette are normal in appearance. The lungs are clear. There is no pneumothorax or pleural fluid. IMPRESSION: No acute process in the chest. Dictated on workstation # [id number] Dict: 03/26/211920 Trans: 03/26/211924 [facility] [id number] Interpreted by: GERARD MONTANEZ MD Electronically signed by: Departure Communication (Admissions) 2200-heart rate down to 95. She believes her heart rate was so fast on arrival because of her anxiety. Her leukocytosis could be secondary to the dehydration. Impression Primary Impression: Dehydration Disposition: 01 HOME, SELF-CARE Condition: Stable Departure-Patient Inst. Decision time for Depature: 22:00 Referrals: ALEXANDER ANGEL MD NO,LOCAL PHYSICIAN (PCP) Primary Care Physician Patient Instructions: Dehydration, Adult (DC) Add. Discharge Instructions: 1. Call Dr. Angel tomorrow or someone from [facility] to make an appointment to be seen. Return to ER for any worsening. MARIUM DÍAZ APRN Mar 26, 2021 18:14
[2021-03-26 18:27] LABS: BASOPHILS # (AUTO) 0.1 10^3/uL (0.0-0.1); BASOPHILS % (AUTO) 1 % (0-10); EOSINOPHILS # (AUTO) 0.2 10^3/uL (0.0-0.3); EOSINOPHILS % (AUTO) 1 % (0-10); HEMATOCRIT 40 % (35-52); LYMPHOCYTES # (AUTO) 4.6 10^3/uL (1.0-4.0); LYMPHOCYTES % (AUTO) 27 % (12-44); MEAN CORPUSCULAR HEMOGLOBIN 31 pg (25-34); MEAN CORPUSCULAR HGB CONC 33 g/dL (32-36); MEAN CORPUSCULAR VOLUME 96 fL (80-99); MEAN PLATELET VOLUME 10.2 fL (9.0-12.2); MONOCYTES # (AUTO) 1.1 10^3/uL (0.0-1.0); MONOCYTES % (AUTO) 7 % (0-12); NEUTROPHILS # (AUTO) 11.2 10^3/uL (1.8-7.8); NEUTROPHILS % (AUTO) 65 % (42-75); PLATELET COUNT 438 10^3/uL (130-400); WHITE BLOOD COUNT 17.2 10^3/uL (4.3-11.0)
[2021-03-26 18:45] LABS: BAND NEUTROPHILS 2 %; LYMPHOCYTES % (MANUAL) 32 %; MONOCYTES % (MANUAL) 5 %; NEUTROPHILS % (MANUAL) 61 %; RBC MORPH NORMAL
[2021-03-26 18:48] LABS: ALANINE AMINOTRANSFERASE 34 U/L (0-55); ALBUMIN 4.3 GM/DL (3.2-4.5); ALKALINE PHOSPHATASE 57 U/L (40-136); BILIRUBIN,TOTAL 0.3 MG/DL (0.1-1.0); BUN/CREATININE RATIO 18; CALCIUM 11.1 MG/DL (8.5-10.1); CARBON DIOXIDE 21 MMOL/L (21-32); CHLORIDE 104 MMOL/L (98-107); CREATININE SERUM 1.19 MG/DL (0.60-1.30); GFR ESTIMATED 46; GLUCOSE 182 MG/DL (70-105); POTASSIUM 3.8 MMOL/L (3.6-5.0); SODIUM 138 MMOL/L (135-145); TOTAL PROTEIN 7.6 GM/DL (6.4-8.2)
[2021-03-26] MEDS ORDERED: NS IV 1000 ML 1,000 ML IV SCH ×2 (19:00→19:45)
--- NOTE | 2021-03-26 19:25 | Diagnostic Imaging Report ---
INDICATION: Palpitations Frontal chest obtained at 7:10 p.m. and compared to 03/05/2014. Heart and mediastinal silhouette are normal in appearance. The lungs are clear. There is no pneumothorax or pleural fluid. IMPRESSION: No acute process in the chest. Dictated by: Dictated on workstation # [id number]
--- NOTE | 2021-03-26 21:12 | Diagnostic Imaging Report ---
INDICATION: Right lower quadrant pain TECHNIQUE: Multiple contiguous axial images were obtained through the abdomen and pelvis without the use of intravenous contrast. Auto Exposure Controls were utilized during the CT exam to meet ALARA standards for radiation dose reduction. Comparison made to 05/06/2015. Visualized portions of the lung bases are clear. There were no pleural fluid collections. There is no free intraperitoneal air. The liver shows no focal lesion without contrast. Patient has had prior cholecystectomy. Spleen, adrenals, and pancreas appear normal. The left kidney is relatively atrophic but shows no hydronephrosis or mass. The right kidney shows a lesion in the midpole which is probably a cyst although difficult to characterize without contrast. There is no hydronephrosis or ureteral stone. The appendix appears normal. Visualized bowel loops are unremarkable. There is no pelvic mass or free fluid. IMPRESSION: No sign of bowel obstruction or bowel wall thickening. No evidence of abscess. The appendix appears normal. There is a probable cyst in the right kidney, consider ultrasound or contrast CT for followup. The left kidney is relatively atrophic. Dictated by: Dictated on workstation # [id number]
[2021-03-26 21:36] LABS: BILIRUBIN,URINE NEGATIVE (NEGATIVE); CLARITY,URINE CLEAR; COLOR,URINE YELLOW; GLUCOSE, URINE (UA) NEGATIVE (NEGATIVE); KETONES,URINE NEGATIVE (NEGATIVE); LEUKOCYTE ESTERASE ,URINE NEGATIVE (NEGATIVE); NITRITE,URINE NEGATIVE (NEGATIVE); PH,URINE 5.5 (5-9); PROTEIN,URINE NEGATIVE (NEGATIVE)
[2021-03-26 21:55] LABS: AMORPHOUS SEDIMENT,UR FEW AMOR URATES /LPF; BACTERIA,URINE TRACE /HPF; RBC,URINE 0-2 /HPF
[2021-03-26 22:07] VITALS: BP 147/98
== END 2021-03-26 22:07 ==
LOC: EDUNIT# 17:59 → ER 18:01
DX: E86.0 Dehydration (principal); I10 Essential (primary) hypertension; J45.909 Unspecified asthma, uncomplicated; K21.9 Gastro-esophageal reflux disease without esophagitis; E11.9 Type 2 diabetes mellitus without complications; F41.9 Anxiety disorder, unspecified; Z20.822 Contact with and (suspected) exposure to COVID-19; Z87.891 Personal history of nicotine dependence; Z79.899 Other long term (current) drug therapy; Z79.84 Long term (current) use of oral hypoglycemic drugs
CPT/HCPCS: 71045; 74176; 80053; 81000; 83605; 83880; 84145; 84484; 85007; 85027; 85379; 86141; 87040; 87804; 93005; 99284; U0002; 36415; 87635

== ENCOUNTER 2023-06-26 08:41 | Outpatient (CLI) | payer MEDICARE, MEDICAID ==
[~2023-06-26] VITALS: Ht 160 cm; Wt 90.3 kg
[~2023-06-26 08:41] MED LIST changes: +ALBU8.5H6 IH; -RT-ALBUINH IH
[2023-06-26 10:05] VITALS: BP 126/76
[2023-06-26] MEDS ORDERED: MTP25TSR PO (10:57)
[2023-06-26] MEDS ORDERED: ATOR80TA76 PO (10:57)
[2023-06-26] MEDS ORDERED: HYDR-3817 PO (10:57)
[2023-06-26] MEDS ORDERED: AMLO-250 PO (10:57)
[2023-06-26] MEDS ORDERED: NYST15CR36 TP (10:57)
[2023-06-26] MEDS ORDERED: TIRZ7.5P SQ (11:07)
== END 2023-06-26 10:59 ==
LOC: PREOP 08:41
PROVIDERS: ATTEND Orthopaedic Surgery
DX: Z01.818 Encounter for other preprocedural examination (principal); M16.11 Unilateral primary osteoarthritis, right hip
CPT/HCPCS: 87081; 93005

== ENCOUNTER 2023-07-03 06:01 | Day surgery (SDC) | payer MEDICARE, MEDICAID ==
[2023-07-03] VITALS (11 sets, daily range): BP systolic 81–161; BP diastolic 55–96
[~2023-07-03] VITALS: Ht 160 cm; Wt 97.5 kg
[~2023-07-03 06:01] MED LIST changes: +AMLO-250 PO; +ATOR80TA76 PO; +HYDR-3817 PO; +MTP25TSR PO; +NYST15CR36 TP; +TIRZ7.5P SQ
[2023-07-03] MEDS ORDERED: ceFAZolin INJECTION 2,000 MG in NS (IVPB) 50 ML 50 ML IV ONE (06:30)
[2023-07-03] MEDS ORDERED: ONDANSETRON 4 MG/2 ML (SDV) Z0FRAN ONE (06:56)
[2023-07-03] MEDS ORDERED: BUPIVACAINE 0.5% 30 ML VIAL ONE (06:56)
[2023-07-03] MEDS ORDERED: PROPOFOL INJECTION 50 ML IV ONE ×2 (06:56→08:34)
[2023-07-03] MEDS ORDERED: fentaNYL INJECTION 100 MCG/2 ML VIAL ONE (06:57)
[2023-07-03] MEDS ORDERED: MIDAZOLAM INJ 2 MG/2 ML VIAL ONE (06:57)
[2023-07-03] MEDS: LACTATED RINGERS 1,000 ML IV PRN ×2 (06:58→07:50)
--- NOTE | 2023-07-03 07:17 | Progress Note-Pre Operative ---
Pre-Operative Progress Note Date of Available H&P: Jun 15, 2023 Date H&P Reviewed: Jul 03, 2023 Time H&P Reviewed: 07:10 History & Physical: H&P Reviewed, Patient Examed, No changes noted Pre-Operative Diagnosis: Right Hip Primary Osteoarthritis TERE GREY MD Jul 03, 2023 07:17
[2023-07-03] MEDS ORDERED: PHENYLEPHRINE 100 MCG/ML 10 ML (ANESTHESIA) SYR ONE (08:23)
--- NOTE | 2023-07-03 09:37 | Operative Report - Ortho ---
Operative Report Surgeon (s)/Engineering Clerk (s) Surgeon TERE GREY MD Engineering Clerk n/a Pre-Operative Diagnosis Right Hip Primary Osteoarthritis Post-Operative Diagnosis same Operative Report Date of Procedure: Jul 03, 2023 Name of Procedure Performed: Right Total Hip Arthroplasty Description & Findings After obtaining informed consent and marking the patient in the preoperative holding area, the patient did receive antibiotics and was taken to the operating room. General anesthesia was induced and patient was positioned in the lateral decubitus position with the right side up. Right lower extremity was prepped and draped in the usual sterile fashion. Surgical timeout was taken. Posterolateral approach was utilized. Capsule and external rotators were taken down in one layer. Hip was dislocated without difficulty. Femoral neck osteotomy was performed and femoral head was removed. Acetabulum was exposed. Labrum and soft tissue was removed from the acetabulum. Sequential reaming was began beginning with a 44 mm reamer and reaming to a 48 mm. 48 mm trial was placed and had good fit. Trial was removed and the acetabulum was lavaged with normal saline; a 48 mm cup was impacted into place and had excellent fit. Two screws were placed for provisional fixation. A polyethylene liner was impacted into place and the locking mechanism was checked. Attention was turned to the femoral side, a cookYogaTrail cutter osteotome was used to removed bone near the greater trochanter. Canal finder was inserted followed by the lateralizing reamer. Sequential broaching was began with a 0 and was broached to a 4. Standard neck and neutral head were put into place. Hip was located and was found to have grossly equal leg lengths; the hip was stable in position of sleep, but had slight instability in flexion and internal rotation. A +4 mm head was placed and this improved the stability. This was accepted. Hip was dislocated. Broach was removed and the canal was irrigated. A size 4 Insignia was impacted into place and set at the same level as the broach. A +4 mm ceramic head was impacted onto the canas taper of the stem. Hip was once again located and found to have grossly equal leg lengths with stability in position of sleep as well as flexion and internal rotation. Irrisept soak was performed. The wound was irrigated. Capsular layer was r epaired with #2 fiberwire. The fascial layer was closed with #2 Stratafix. The subcutaneous layer was closed with 2-0 Vicryl. Skin was closed with laurence. Wound was dressed with xeroform, 4x4s, ABD, and tape. Patient was placed in abduction pillow and transferred to the hospital bed without difficulty and was stable to the recovery room. Anesthesia Type Spinal Estimated Blood Loss 250 mL Specimen(s) collected/removed None TERE GREY MD Jul 03, 2023 09:37
[2023-07-03] MEDS ORDERED: morphine INJ 10 MG/ML 1ML (SYR OR VIAL) IVP ONE (09:45)
[2023-07-03] MEDS ORDERED: NALOXONE 0.4 MG/ML 1 ML (NARCAN) VIAL IV PRN ×2 (09:45)
[2023-07-03] MEDS ORDERED: MILK OF MAGNESIA 400 MG/5 ML 30 ML UDC PO PRN (09:45)
[2023-07-03] MEDS ORDERED: ONDANSETRON 4 MG/2 ML (SDV) Z0FRAN IVP PRN (09:45)
[2023-07-03] MEDS ORDERED: METOCLOPRAMIDE INJ 10 MG/2 ML (REGLAN) IV PRN (09:45)
[2023-07-03] MEDS ORDERED: ONDANSETRON 4 MG/2 ML (SDV) Z0FRAN IV PRN ×2 (09:45)
[2023-07-03] MEDS ORDERED: diphenhydrAMINE INJ 50 MG/ML VIAL IV PRN (09:45)
[2023-07-03] MEDS ORDERED: BISACODYL 5 MG TABLET PO PRN (09:45)
[2023-07-03] MEDS: morphine INJ 4 MG/ML 1 ML (VIAL/SYRINGE) IVP PRN ×3 (11:21→16:51)
[2023-07-03] MEDS: HYDROcodone/ACETAMINOPHEN 10/325 TABLET PO PRN ×3 (11:49→23:49)
--- NOTE | 2023-07-03 13:31 | Physical Therapy Evaluation ---
PT Evaluation-General Medical Diagnosis Admission Date July 03, 2023 Medical Diagnosis: right hip OA Onset Date: Jul 03, 2023 Therapy Diagnosis Therapy Diagnosis: impaired mobility/generalized weakness Height/Weight Height (Feet): 5 Height (Inches): 3.00 Weight (Pounds): 230 Weight (Ounces): 0.0 Precautions Precautions/Isolations: Fall Prevention, Standard Precautions Referral Physician: Swathi Reason for Referral: Evaluation/Treatment Medical History Pertinent Medical History: DM Current History s/p right THR Reviewed History: Yes Prior Prior Level of Function SCALE: Activities may be completed with or without assistive devices. 9-Ubtnkishjk-iejrhff completes the activity by him/herself with no assistance fr om a helper. 5-Set-up or Clean-up Assistance-helper sets up or cleans up; patient completes activity. Lee assists only prior to or following the activity. 4-Supervision or Touching Assistance-helper provides verbal cues and/or touching/steadying and/or contact guard assistance as patient completes activity. Assistance may be provided throughout the activity or intermittently. 3-Partial/Moderate Assistance-helper does LESS THAN HALF the effort. Lee lifts, holds or supports trunk or limbs, but provides less than half the effort. 2-Substantial/Maximal Assistance-helper does MORE THAN HALF the effort. Lee lifts or holds trunk or limbs and provides more than half the effort. 2-Faamylxbw-tcyhns does ALL the effort. Patient does none of the effort to complete the activity. Or, the assistance of 2 or more helpers is required for the patient to complete the activity. If activity was not attempted, code reason: 7-Patient Refused. 9-Not Applicable-not attempted and the patient did not perform the activity before the current illness, exacerbation or injury. 10-Not Attempted due to Environmental Limitations-(lack of equipment, weather restraints, etc.). 88-Not Attempted due to Medical Conditions or Safety Concerns. Bed Mobility: 6 Transfers (B,C,W/C): 6 Gait: 6 Indoor Mobility (Ambulation): Independent Prior Devices Use: Other-see list below Prior Device Use: cane PT Evaluation-Current Subjective Patient agrees to PT. Pain Numeric Pain Scale: 8 Location: Right Location Body Site: Hip Pain Description: Acute Objective Patient Orientation: Normal For Age Attachments: Romero Catheter, IV ROM/Strength ROM Lower Extremities right hip precautions/left LE WFL Strength Lower Extremities left LE 3+/5 grossly/right LE 3-/5 grossly Integumentary/Posture Bladder Incontinence: Romero Cath Posture WFL Neuromuscular (Tone, Coordination, Reflexes) grossly intact Sensory Vision: Functional Hearing: Functional Transfers Sit to Lying (QC): 3 Lying to Sitting/Side of Bed(Q: 3 Sit to Stand (QC): 3 Gait Mode of Locomotion: Walk Anticipated Mode of Locomotion: Walk Distance: 5 side steps Gait Assistive Device: FWW Balance Sitting Static: Fair Sitting Dynamic: Fair Standing Static: Fair Standing Dynamic: Fair Assessment/Needs Patient will benefit from skilled PT to address functional strength and mobility to improve current LOF to safely return to home at maximum LOF. Rehab Potential: Fair PT Intermediate Goals Intermediate Goals PT Intermediate Goals Time Frame: Jul 22, 2023 Roll Left & Right (QC): 6 Sit to Lying (QC): 6 Lying-Sitting on Side/Bed(QC): 6 Sit to Stand (QC): 6 Chair/Xmb-zs-Jnhof Xfer(QC): 6 Toilet Transfer (QC): 6 Walk 10 feet (QC): 6 Walk 50ft with 2 Turns (QC): 6 Walk 150 ft (QC): 6 PT Plan Problem List Problem List: Activity Tolerance, Functional Strength, Safety, Balance, Gait, Transfer, Bed Mobility Treatment/Plan Treatment Plan: Continue Plan of Care Treatment Plan: Bed Mobility, Education, Functional Activity Allison, Functional Strength, Gait, Safety, Therapeutic Exercise, Transfers Treatment Duration: Jul 22, 2023 Frequency: 11 times per week Estimated Hrs Per Day: .5 hour per day Safety Risks/Education Patient Education: Reviewed Precautions Teaching Recipient: Patient Teaching Methods: Demonstration, Discussion Response to Teaching: Verbalize Understanding Time Time In: 1250 Time Out: 1305 DATE: Jul 03, 2023 Total Billed Treatment Time: 15 Total Billed Treatment 1 visit EVMod 15 min MELISSA TARQI PT Jul 03, 2023 13:31
--- NOTE | 2023-07-03 13:38 | Diagnostic Imaging Report ---
PELVIS 1 TO 2 VIEWS INDICATION: Followup after right hip arthroplasty COMPARISON: 06/15/2023 TECHNIQUE: AP view of the pelvis FINDINGS: Total hip arthroplasty has been performed and has components in good alignment. No acute periprosthetic fracture. There is a small amount of postoperative soft tissue gas around the right hip. SI joints are normal. Degenerative arthritis of left hip is noted. IMPRESSION: No acute periprosthetic fracture following right total hip arthroplasty. Dictated by: Dictated on workstation # [id number]
[2023-07-03] MEDS: ceFAZolin INJECTION 2,000 MG in NS (IVPB) 50 ML 50 ML IV SCH ×2 (14:22→19:48)
[2023-07-03] MEDS: NS IV 1000 ML 1,000 ML IV SCH ×3 (14:22→23:53)
[2023-07-03] MEDS: LORazepam 0.5 MG TABLET PO PRN ×2 (14:29→23:49)
[2023-07-03] MEDS: CYCLOBENZAPRINE 10 MG TABLET PO PRN ×2 (14:29→23:49)
[2023-07-03] MEDS ORDERED: GABAPENTIN 300 MG CAPSULE PO ONE (14:30)
--- NOTE | 2023-07-03 14:38 | Consultation ---
ABEBEROXANNA 07/03/23 1437: HPI History of Present Illness: HPI/Chief Complaint CC: Right hip pain HPI: 62-year-old patient presented to the ortho clinic with right hip pain. Patient had problems with hip for the past two years and decided to get surgery, which was a total hip arthroplasty. Patient was in stable condition upon arrival to [facility]-surg. Is doing well but is in mild discomfort and pain from surgery. Source: patient Exam Limitations: no limitations, other Date Seen 07/03/23 Attending Physician Twan Otero DO PCP Admitting Physician: Attending Physician: Salvador Echevarria MD Referring Physician Salvador Echevarria MD Date of Admission Home Medications & Allergies Home Medications Reviewed patient Home Medication Reconciliation performed by pharmacy medication reconciliations survey technician and/or nursing. Patients Allergies have been reviewed. Allergies Allergies Coded Allergies No Known Drug Allergies (Unverified06/26/23) Past Jdekiro-Atgahr-Yvahjw Hx Patient Social History Tobacco Use?: Yes Tobacco type used: Cigarettes Smoking Status: Current Everyday Smoker Use of E-Cig and/or Vaping dev: No Substance use?: No Alcohol Use?: No Pt feels they are or have been: No Immunizations Up To Date First/Initial COVID19 Vaccinat: 2020 Second COVID19 Vaccination Panfilo: 2020 Tetanus Booster (TDap): Unknown Hepatitis A: No Hepatitis B: No Seasonal Allergies Seasonal Allergies: Yes Current Status status: No status: No Advance Directives: No Communicates: Verbally Primary Language: Thai Preferred Spoken Language: Thai Is interpretation needed?: No Sensory deficits: Vision impairment Implanted or Applied Medical D: Orthopedic hardware Past Medical History Surgeries: Section, Gallbladder, Hysterectomy, Orthopedic Asthma Currently Using CPAP: No Currently Using BIPAP: No High Cholesterol, Hypertension 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 Sexually Transmitted Disease: No Gastroesophageal Reflux, Gall Bladder Disease Arthritis Diabetes, Non-Insulin dep Are Your Blood Sugars Over 250: Yes Loss of Vision: Bilateral Hearing Impairment: Denies Anxiety Blood Disorders: Yes (HEP C) Adverse Reaction/Blood Tranf: No Review of Systems Constitutional: no symptoms reported EENTM: no symptoms reported Respiratory: no symptoms reported Cardiovascular: no symptoms reported Gastrointestinal: no symptoms reported Musculoskeletal: see HPI Skin: no symptoms reported Psychiatric/Neurological: Weakness (Just had orthopedic surgery) Physical Exam Physical Exam Vital Signs Vital Signs - First Documented 07/03/23 06:00 Temp 36.8 Pulse 94 Resp 18 B/P (MAP) 142/80 (100) Pulse Ox 94 Capillary Refill : Less Than 3 Seconds Height, Weight, BMI Height: 5'3.00" Weight: 230lbs. 0.0oz. 104.440343br; 35.27 BMI Method:Stated General Appearance: No Apparent Distress Eyes: Bilateral Eye Normal Inspection, Bilateral Eye PERRL HEENT: PERRL/EOMI, Pharynx Normal, Moist Mucous Membranes Respiratory: Chest Non Tender, Lungs Clear, Normal Breath Sounds, No Accessory Muscle Use, No Respiratory Distress Cardiovascular: Regular Rate, Rhythm, No Gallop, No JVD, No Murmur Extremity: Normal Capillary Refill Neurologic/Psychiatric: Alert, Oriented x3, Normal Mood/Affect Skin: Normal Color, Warm/Dry Results Results/Procedures Labs Patient resulted labs reviewed. Assessment/Plan Assessment and Plan Assess & Plan/Chief Complaint Assessment: Right hip osteoarthritis Current everyday smoker Diabetes, non-insulin dependent Asthma Bilateral loss of vision Plan: Monitor Supportive care Insulin sliding scale Pain management Surgical wound management ADORE COX DO 07/04/23 0556: Supervisory-Addendum Brief Verification & Attestation Participated in pt care: history, MDM, physical Personally performed: exam, history, MDM, supervision of care Care discussed with: Medical Student Procedures: n/a Results interpretation: Verified all documentation Verification and Attestation of Medical Student E/M Service A medical student performed and documented this service in my presence. I reviewed and verified all information documented by the medical student and made modifications to such information, when appropriate. I personally performed the physical exam and medical decision making. Adore Cox Jul 04, 2023,05:56 ROXANNA LOMAS Jul 03, 2023 14:37 ADORE COX DO Jul 04, 2023 05:56
[2023-07-03] MEDS: inSUlin ASPART 1 UNIT/0.01 ML (PER UNIT) SC SCH ×2 (16:51→21:20)
[2023-07-03] MEDS: ASPIRIN enteric coated 81MG TABLET PO SCH (18:11)
[2023-07-03] MEDS: CELECOXIB 100 MG CAPSULE PO SCH (19:48)
[2023-07-03] MEDS: DOCUSATE SODIUM 100 MG CAPSULE PO SCH (19:48)
[2023-07-03] MEDS: ACETAMINOPHEN 500 MG TABLET PO PRN (21:19)
[2023-07-04 03:50] VITALS: BP 123/85
[2023-07-04] MEDS: HYDROcodone/ACETAMINOPHEN 10/325 TABLET PO PRN ×4 (04:03→16:13)
[2023-07-04] MEDS: inSUlin ASPART 1 UNIT/0.01 ML (PER UNIT) SC SCH ×4 (05:00→21:13)
[2023-07-04] MEDS: MULTIVIT W/MINERALS TAB (THERAGRAN M) PO SCH (05:26)
[2023-07-04 05:29] LABS: BASOPHILS # (AUTO) 0.1 10^3/uL (0.0-0.1); BASOPHILS % (AUTO) 1 % (0-10); EOSINOPHILS # (AUTO) 0.1 10^3/uL (0.0-0.3); EOSINOPHILS % (AUTO) 1 % (0-10); HEMATOCRIT 34 % (35-52); HEMOGLOBIN 11.1 g/dL (11.5-16.0); LYMPHOCYTES # (AUTO) 2.1 10^3/uL (1.0-4.0); LYMPHOCYTES % (AUTO) 14 % (12-44); MEAN CORPUSCULAR HEMOGLOBIN 31 pg (25-34); MEAN CORPUSCULAR HGB CONC 32 g/dL (32-36); MEAN CORPUSCULAR VOLUME 96 fL (80-99); MEAN PLATELET VOLUME 10.2 fL (9.0-12.2); MONOCYTES # (AUTO) 1.3 10^3/uL (0.0-1.0); MONOCYTES % (AUTO) 9 % (0-12); NEUTROPHILS # (AUTO) 11.1 10^3/uL (1.8-7.8); NEUTROPHILS % (AUTO) 75 % (42-75); PLATELET COUNT 348 10^3/uL (130-400); WHITE BLOOD COUNT 14.7 10^3/uL (4.3-11.0)
[2023-07-04 05:57] LABS: BILIRUBIN,TOTAL 0.7 MG/DL (0.1-1.0); CALCIUM 9.6 MG/DL (8.5-10.1); CREATININE SERUM 0.8 MG/DL (0.60-1.30); POTASSIUM 3.9 MMOL/L (3.6-5.0); TOTAL PROTEIN 5.8 GM/DL (6.4-8.2)
--- NOTE | 2023-07-04 06:34 | Progress Note ---
Subjective Date Seen by a Provider: Jul 04, 2023 Time Seen by a Provider: 09:00 Subjective/Events-last exam Patient doing much better Slow recovery Pain is an issue No nausea Labs reviewed Review of Systems General: Fatigue, Malaise Musculoskeletal: leg pain Objective Exam Last Set of Vital Signs Vital Signs Date Time Temp Pulse Resp B/P (MAP) Pulse Ox O2 Delivery O2 Flow Rate FiO2 07/04/23 03:50 36.6 86 20 123/85 (98) 94 Room Air Capillary Refill : Less Than 3 Seconds I&O Intake and Output 07/04/23 00:00 Intake Total 2190 ml Output Total 1425 ml Balance 765 ml Intake Oral 1140 ml IV Total 1050 ml Output Urine Total 1125 ml Estimated Blood Loss 300 ml # Bowel Movements 1 Daily Weight Change No General: Alert, Oriented X3, Cooperative, No Acute Distress Lungs: Clear to Auscultation, Normal Air Movement Heart: Regular Rate, Normal S1, Normal S2, No Murmurs Psych/Mental Status: Mental Status NL, Mood NL Results Lab Laboratory Tests 07/03/23 06:36: Glucometer 183H 07/03/23 10:53: Glucometer 103 07/03/23 15:22: Glucometer 159H 07/03/23 20:25: Glucometer 163H 07/04/23 04:55: White Blood Count 14.7H, Red Blood Count 3.59L, Hemoglobin 11.1L, Hematocrit 34L , Mean Corpuscular Volume 96, Mean Corpuscular Hemoglobin 31, Mean Corpuscular Hemoglobin Concent 32, Red Cell Distribution Width 14.4, Platelet Count 348, Mean Platelet Volume 10.2, Immature Granulocyte % (Auto) 1, Neutrophils (%) (Auto) 75, Lymphocytes (%) (Auto) 14, Monocytes (%) (Auto) 9, Eosinophils (%) (Auto) 1, Basophils (%) (Auto) 1, Neutrophils # (Auto) 11.1H, Lymphocytes # (Auto) 2.1, Monocytes # (Auto) 1.3H, Eosinophils # (Auto) 0.1, Basophils # (Auto) 0.1, Immature Granulocyte # (Auto) 0.1, Sodium Level 138, Potassium Level 3.9, Chloride Level 107, Carbon Dioxide Level 23, Anion Gap 8, Blood Urea Nitrogen 7, Creatinine 0.80, Estimat Glomerular Filtration Rate 83, BUN/Creatinine Ratio 9, Glucose Level 138H, Glucometer 146H, Calcium Level 9.6, Corrected Calcium 10.4H, Total Bilirubin 0.7, Aspartate Amino Transf (AST/SGOT) 13, Alanine Aminotransferase (ALT/SGPT) 10, Alkaline Phosphatase 42, Total Protein 5.8L, Albumin 3.0L Assessment/Plan Assessment/Plan Assess & Plan/Chief Complaint Assessment: Right hip osteoarthritis Current everyday smoker Diabetes, non-insulin dependent Asthma Bilateral loss of vision Plan: Monitor Supportive care Insulin sliding scale Pain management Surgical wound management ADORE COX DO Jul 04, 2023 06:34
[2023-07-04 07:34] VITALS: BP 136/87
--- NOTE | 2023-07-04 08:05 | Physical Therapy Daily Note ---
PT Daily Note-Current Subjective Patient agrees to PT. Pain Numeric Pain Scale: 8 Location: Right Location Body Site: Hip Pain Description: Acute Section J - Health Conditions 1. Rarely or not at all 2. Occasionally 3. Frequently 4. Almost constantly 8. Unable to answer Pain Effect on Sleep: 2 Pain Interference with Therapy: 2 Pain Interference w/Day-to-Day: 2 Mental Status Patient Orientation: Normal For Age Attachments: Romero Catheter, IV Transfers SCALE: Activities may be completed with or without assistive devices. 2-Ykewuvdnkr-wvzumdz completes the activity by him/herself with no assistance from a helper. 5-Set-up or Clean-up Assistance-helper sets up or cleans up; patient completes activity. [place] assists only prior to or following the activity. 4-Supervision or Touching Assistance-helper provides verbal cues and/or touching/steadying and/or contact guard assistance as patient completes activity. Assistance may be provided throughout the activity or intermittently. 3-Partial/Moderate Assistance-helper does LESS THAN HALF the effort. [place] lifts, holds or supports trunk or limbs, but provides less than half the effort. 2-Substantial/Maximal Assistance-helper does MORE THAN HALF the effort. [place] lifts or holds trunk or limbs and provides more than half the effort. 7-Filnkvicc-fbpjjh does ALL the effort. Patient does none of the effort to complete the activity. Or, the assistance of 2 or more helpers is required for the patient to complete the activity. If activity was not attempted, code reason: 7-Patient Refused. 9-Not Applicable-not attempted and the patient did not perform the activity before the current illness, exacerbation or injury. 10-Not Attempted due to Environmental Limitations-(lack of equipment, weather restraints, etc.). 88-Not Attempted due to Medical Conditions or Safety Concerns. Lying to Sitting/Side of Bed(Q: 3 Sit to Stand (QC): 4 Chair/Lfx-nl-Tnsob Xfer(QC): 4 Weight Bearing Right Lower Extremity: Right Weight Bearing/Tolerated Left Lower Extremity: Left Full Weight Bearing Gait Training Distance: 50' Walk 10 feet (QC): 4 Walk 50 ft with 2 Turns(QC): 4 Walk 150 ft (QC): 88 Gait Assistive Device: FWW slow, antalgic, step to gait sequence Exercises Supine Ex: Ankle pumps, Quad Set, Heel Slides Supine Reps: 12 Seated Therapy Exercises: Long arc quads Seated Reps: 15 Assessment Patient tolerated treatment well and is up in recliner with needs met. Patient currently limited by right LE pain. PT to increase activity as tolerated by santana sullivan. PT Payment Processor Goals Payment Processor Goals PT Half-Way Goals Time Frame: Jul 22, 2023 Roll Left & Right (QC): 6 Sit to Lying (QC): 6 Lying-Sitting on Side/Bed(QC): 6 Sit to Stand (QC): 6 Chair/Auw-hg-Dhurd Xfer(QC): 6 Toilet Transfer (QC): 6 Walk 10 feet (QC): 6 Walk 50ft with 2 Turns (QC): 6 Walk 150 ft (QC): 6 PT Plan Treatment/Plan Treatment Plan: Continue Plan of Care Treatment Plan: Bed Mobility, Education, Functional Activity Allison, Functional Strength, Gait, Safety, Therapeutic Exercise, Transfers Treatment Duration: Jul 22, 2023 Frequency: 11 times per week Estimated Hrs Per Day: .5 hour per day Time Time In: 735 Time Out: 758 DATE: Jul 04, 2023 Total Billed Treatment Time: 23 Total Billed Treatment 1 visit EX 9 min GT 14 min MELISSA TARIQ PT Jul 04, 2023 08:04
[2023-07-04] MEDS: ASPIRIN enteric coated 81MG TABLET PO SCH ×2 (08:10→16:13)
[2023-07-04] MEDS: CELECOXIB 100 MG CAPSULE PO SCH ×2 (08:10→19:56)
[2023-07-04] MEDS: DOCUSATE SODIUM 100 MG CAPSULE PO SCH ×2 (08:10→19:56)
--- NOTE | 2023-07-04 08:25 | Progress Note - Ortho ---
Progress Note Subjective Date of Exam 07/04/23 Chief Complaint POD #1 R POLLY HPI/Events since last exam having difficulty with pain control, has been up with therapy Review of Systems - Allergies: Coded Allergies: No Known Drug Allergies (Unverified , 06/26/23) Home Meds Reported Medications Tirzepatide (Mounjaro) 7.5 Mg/0.5 Ml Pen.injctr, 7.5 MG SQ MONDAY, VIAL 06/26/23 Atorvastatin Calcium (Atorvastatin Calcium) 80 Mg Tablet, 80 MG PO DAILY, TAB 06/26/23 Nystatin/Triamcinolone (Nystatin-Triamcinolone Cream) 100,000 Unit/Gram-0.1 % Cr, 15 GM TP UD, EA 06/26/23 Hydrocodone/Acetaminophen (Hydrocodone-Acetamin 7.5-325) 7.5 Mg-325 Mg Tablet, 1 EACH PO TID PRN for PAIN-BREAKTHROUGH, TAB 06/26/23 Amlodipine Besylate (Amlodipine Besylate) 5 Mg Tablet, 5 MG PO DAILY, TAB 06/26/23 Metoprolol Succinate (Metoprolol Succinate) 25 Mg Tab.er.24h, 25 MG PO DAILY, TAB 06/26/23 Metformin HCl (Metformin HCl) 1,000 Mg Tablet, 500 MG PO BID, TAB 03/27/19 Lisinopril (Lisinopril) 40 Mg Tablet, 40 MG PO DAILY, TAB 03/27/19 Albuterol Sulfate (Ventolin Hfa) 1 Puff Puff, 2 PUFF IH Q4H PRN for SHORTNESS OF BREATH, PUFF 1 PUFF = 90 MCG 03/27/19 Objective Exam R Hip: Dressing C/D/I, +DF of ankle, no s/s of DVT Vital Signs Vital Signs Date Time Temp Pulse Resp B/P (MAP) Pulse Ox O2 Delivery O2 Flow Rate FiO2 07/04/23 07:34 36.7 99 19 136/87 (103) 92 Room Air 07/04/23 03:50 36.6 86 20 123/85 (98) 94 Room Air 07/03/23 23:21 36.8 102 20 152/73 (99) 94 Room Air 07/03/23 20:09 37.4 07/03/23 20:05 38.7 108 20 161/96 (117) 93 Room Air 07/03/23 20:00 Room Air 07/03/23 15:30 Room Air 07/03/23 15:29 37.8 103 19 150/86 (107) 97 Room Air 07/03/23 11:31 36.0 81 18 90/57 (68) 98 Room Air 07/03/23 11:08 Room Air 07/03/23 10:20 Room Air 07/03/23 10:10 Room Air 07/03/23 10:10 36.7 18 116/62 (80) 95 Room Air 07/03/23 10:00 20 96/55 (69) 94 Room Air 07/03/23 09:55 Room Air 07/03/23 09:50 18 96/60 (72) 95 Room Air 07/03/23 09:40 Room Air 07/03/23 09:40 18 97/57 (70) 96 Room Air 07/03/23 09:30 16 81/64 (70) 97 Room Air 07/03/23 09:25 Room Air 07/03/23 09:25 36.7 16 84/58 (67) 97 Room Air I & O 07/04/23 07:00 Intake Total 2490 ml Output Total 1575 ml Balance 915 ml Lab Results Laboratory Tests 07/03/23 10:53: Glucometer 103 07/03/23 15:22: Glucometer 159H 07/03/23 20:25: Glucometer 163H 07/04/23 04:55: Glucometer 146H, White Blood Count 14.7H, Red Blood Count 3.59L, Hemoglobin 11.1L, Hematocrit 34L, Mean Corpuscular Volume 96, Mean Corpuscular Hemoglobin 31, Mean Corpuscular Hemoglobin Concent 32, Red Cell Distribution Width 14.4, Platelet Count 348, Mean Platelet Volume 10.2, Immature Granulocyte % (Auto) 1, Neutrophils (%) (Auto) 75, Lymphocytes (%) (Auto) 14, Monocytes (%) (Auto) 9, Eosinophils (%) (Auto) 1, Basophils (%) (Auto) 1, Neutrophils # (Auto) 11.1H, Lymphocytes # (Auto) 2.1, Monocytes # (Auto) 1.3H, Eosinophils # (Auto) 0.1, Basophils # (Auto) 0.1, Immature Granulocyte # (Auto) 0.1, Sodium Level 138, Potassium Level 3.9, Chloride Level 107, Carbon Dioxide Level 23, Anion Gap 8, Blood Urea Nitrogen 7, Creatinine 0.80, Estimat Glomerular Filtration Rate 83, BUN/Creatinine Ratio 9, Glucose Level 138H, Calcium Level 9.6, Corrected Calcium 10.4H, Total Bilirubin 0.7, Aspartate Amino Transf (AST/SGOT) 13, Alanine Aminotransferase (ALT/SGPT) 10, Alkaline Phosphatase 42, Total Protein 5.8L, Albumin 3.0L Imaging Postop AP pelvis dated 07/03/23 was reviewed from PACS and demonstrated right total hip arthroplasty with components in good position Assessment and Plan Assessment Right hip primary OA s/p POLLY Problem List Right hip primary OA s/p POLLY Plan PT/OT DVT Prophylaxis Rehab Consult vs. D/C planning Final Diagonsis Right hip primary OA s/p POLLY Level of the visit: Level 3 (global) TERE GREY MD Jul 04, 2023 08:25
[2023-07-04] MEDS ORDERED: amLODIPine 5 MG TABLET PO SCH (09:00)
[2023-07-04] MEDS: morphine INJ 4 MG/ML 1 ML (VIAL/SYRINGE) IVP PRN (10:37)
[2023-07-04] MEDS ORDERED: METF-478 PO (11:03)
[2023-07-04] MEDS ORDERED: AMLO-251 PO (11:03)
--- NOTE | 2023-07-04 11:06 | Occupational Therapy Eval ---
OT Evaluation-General/PLF Medical Diagnosis Admission Date Medical Diagnosis: right hip OA Onset Date: Jul 03, 2023 Therapy Diagnosis Therapy Diagnosis: s/p POLLY, pain, weakness Height/Weight Height (Feet): 5 Height (Inches): 3.00 Weight (Pounds): 230 Weight (Ounces): 0.0 Precautions Precautions/Isolations: Fall Prevention, Standard Precautions Weight Bear Status Weight Bearing Restriction: Weight Bearing/Tolerated Location Restriction: R LE Referral Physician: Swathi Referral Reason: Self Care, Evaluation/Treatment Medical History Pertinent Medical History: DM Reviewed History: Yes Social History Home: Single Level Current Living Status: Alone Entry Into Home: Stairs With Railing Steps Into Home: 4 ADL-Prior Level of Function SCALE: Activities may be completed with or without assistive devices. 2-Jixbxosuzc-oxgfitj completes the activity by him/herself with no assistance from a helper. 5-Set-up or Clean-up Assistance-helper sets up or cleans up; patient completes activity. [place] assists only prior to or following the activity. 4-Supervision or Touching Assistance-helper provides verbal cues and/or touching/steadying and/or contact guard assistance as patient completes activity. Assistance may be provided throughout the activity or intermittently. 3-Partial/Moderate Assistance-helper does LESS THAN HALF the effort. [place] lifts, holds or supports trunk or limbs, but provides less than half the effort. 2-Substantial/Maximal Assistance-helper does MORE THAN HALF the effort. [place] lifts or holds trunk or limbs and provides more than half the effort. 4-Wkskzdrwm-kdjgqn does ALL the effort. Patient does none of the effort to complete the activity. Or, the assistance of 2 or more helpers is required for the patient to complete the activity. If activity was not attempted, code reason: 7-Patient Refused. 9-Not Applicable-not attempted and the patient did not perform the activity before the current illness, exacerbation or injury. 10-Not Attempted due to Environmental Limitations-(lack of equipment, weather restraints, etc.). 88-Not Attempted due to Medical Conditions or Safety Concerns. Self Care: Independent Functional Cognition: Independent Drive Self: Yes OT Current Status Subjective agreeable to OT, daughter is present Pain Numeric Pain Scale: 7 (requesting pain meds) Mental Status/Objective Patient Orientation: Person, Place, Time, Situation Attachments: IV (port only) Current Glasses/Contacts: Yes Upper Extremity ROM BUE ROM WFLs Upper Extremity Coordination INTACT, pain limits problem solving w/ LB dressing tools Upper Extremity Strength +3/5 BUE ADL-Treatment Eating (QC): 6 Oral Hygiene (QC): 5 Shower/Bathe Self (QC): 88 Upper Body Dressing (QC): 4 Lower Body Dressing (QC): 3 On/Off Footwear (QC): 3 (problem solving difficulty w/ use of tools) Toileting Hygiene (QC): 4 verbalized 1/3 POLLY precautions Education OT Patient Education: Correct positioning, Instructions to caregiver, Modified ADL techniques, Progress toward Goal/Update tx plan, Purpose of tx/functional activities, Reviewed precautions, Rehab process, Safety issues, Transfer techniques, Use of adapted equipment Teaching Recipient: Patient, Family Teaching Methods: Demonstration, Discussion Response to Teaching: Reinforcement Needed OT Finisher Wallboard And Plasterboard Goals Finisher Wallboard And Plasterboard Goals Eating (QC): 6 Oral Hygiene (QC): 6 Toileting Hygiene (QC): 6 Shower/Bathe Self (QC): 6 Upper Body Dressing (QC): 6 Lower Body Dressing (QC): 6 On/Off Footwear (QC): 6 1=Demonstrate adherence to instructed precautions during ADL tasks. 2=Patient will verbalize/demonstrate understanding of assistive devices/modifications for ADL. 3=Patient will improve strength/tolerance for activity to enable patient to perform ADL's. OT Education/Plan Problem List/Assessment Assessment: Impaired Cognition, Impaired Coordination, Impaired Self-Care Skills Discharge Recommendations Plan/Recommendations: Continue POC Equpiment Recommendations-D/C: Hip Kit Treatment Plan/Plan of Care Treatment,Training & Education: Yes Patient would benefit from OT for education, treatment and training to promote independence in ADL's, mobility, safety and/or upper extremity function for ADL's. Plan of Care: ADL Retraining, Caregiver Training, Concurrent Therapy, Functional Mobility, Group Exercise/Act as Ind, UE Funct Exercise/Act Treatment Duration: Jul 07, 2023 Frequency: 3 times per week (3-5 times per week) Estimated Hrs Per Day: .25 hour per day Agreement: Yes Rehab Potential: Fair Time Start Time: 09:50 Stop Time: 09:14 DATE: Jul 04, 2023 Total Time Billed (hr/min): 24 Billed Treatment Time EVM, ADL 24 min ALEXANDER DENNISON OT Jul 04, 2023 11:06
[2023-07-04] MEDS ORDERED: GLIM2TAB4 PO (11:09)
[2023-07-04 11:14] VITALS: BP 133/80
--- NOTE | 2023-07-04 12:54 | Anesthesia-Regional Post-Op ---
Regional Patient Condition Mental Status: Alert, Oriented x3 Circulation: Same as Pre-Op Headache: Absent Sensation: Full Recovery Motor Block: Absent Post Op Complications Complications None Follow Up Care/Instructions Patient Instructions None needed. Anesthesia/Patient Condition Patient is doing well, no complaints, stable vital signs, no apparent adverse anesthesia problems. No complications reported per nursing. TERE ARROYO CRNA Jul 04, 2023 12:54
--- NOTE | 2023-07-04 14:18 | Physical Therapy Daily Note ---
PT Daily Note-Current Subjective Patient very agreeable to PT. Pain Numeric Pain Scale: 5-Moderate Pain Location: Right Location Body Site: Hip Pain Description: Acute Section J - Health Conditions 1. Rarely or not at all 2. Occasionally 3. Frequently 4. Almost constantly 8. Unable to answer Pain Effect on Sleep: 2 Pain Interference with Therapy: 2 Pain Interference w/Day-to-Day: 2 Transfers SCALE: Activities may be completed with or without assistive devices. 9-Xhajlqsroi-icjivvs completes the activity by him/herself with no assistance from a helper. 5-Set-up or Clean-up Assistance-helper sets up or cleans up; patient completes activity. [place] assists only prior to or following the activity. 4-Supervision or Touching Assistance-helper provides verbal cues and/or touching/steadying and/or contact guard assistance as patient completes activity. Assistance may be provided throughout the activity or intermittently. 3-Partial/Moderate Assistance-helper does LESS THAN HALF the effort. [place] lifts, holds or supports trunk or limbs, but provides less than half the effort. 2-Substantial/Maximal Assistance-helper does MORE THAN HALF the effort. [place] lifts or holds trunk or limbs and provides more than half the effort. 0-Siznvogeh-quvisq does ALL the effort. Patient does none of the effort to complete the activity. Or, the assistance of 2 or more helpers is required for the patient to complete the activity. If activity was not attempted, code reason: 7-Patient Refused. 9-Not Applicable-not attempted and the patient did not perform the activity before the current illness, exacerbation or injury. 10-Not Attempted due to Environmental Limitations-(lack of equipment, weather restraints, etc.). 88-Not Attempted due to Medical Conditions or Safety Concerns. Sit to Lying (QC): 3 Lying to Sitting/Side of Bed(Q: 4 Sit to Stand (QC): 4 Toilet Transfer (QC): 4 Weight Bearing Right Lower Extremity: Right Weight Bearing/Tolerated Left Lower Extremity: Left Full Weight Bearing Gait Training Distance: 100' Walk 10 feet (QC): 4 Walk 50 ft with 2 Turns(QC): 4 Gait Assistive Device: FWW antalgic, step to gait sequence Exercises Supine Ex: Ankle pumps, Quad Set, Heel Slides Supine Reps: 12 Seated Therapy Exercises: Long arc quads Seated Reps: 15 Assessment Patient progressing with treatment plan and reports she is going home tomorrow. PT to address stair training in a.m. PT Senior Care Goals Grinding Wheel Dresser Goals PT Grinding Wheel Dresser Goals Time Frame: Jul 22, 2023 Roll Left & Right (QC): 6 Sit to Lying (QC): 6 Lying-Sitting on Side/Bed(QC): 6 Sit to Stand (QC): 6 Chair/Urv-gr-Vmklb Xfer(QC): 6 Toilet Transfer (QC): 6 Walk 10 feet (QC): 6 Walk 50ft with 2 Turns (QC): 6 Walk 150 ft (QC): 6 PT Plan Treatment/Plan Treatment Plan: Continue Plan of Care Treatment Plan: Bed Mobility, Education, Functional Activity Allison, Functional Strength, Gait, Safety, Therapeutic Exercise, Transfers Treatment Duration: Jul 22, 2023 Frequency: 11 times per week Estimated Hrs Per Day: .5 hour per day Time Time In: 1341 Time Out: 1406 DATE: Jul 04, 2023 Total Billed Treatment Time: 25 Total Billed Treatment 1 visit GT 14 min EX 11 min MELISSA TARIQ PT Jul 04, 2023 14:17
[2023-07-04 16:02] VITALS: BP 158/75
[2023-07-04 19:56] VITALS: BP 136/92
[2023-07-04] MEDS: ACETAMINOPHEN 500 MG TABLET PO PRN (19:57)
[2023-07-04] MEDS: LORazepam 0.5 MG TABLET PO PRN (19:58)
[2023-07-04] MEDS: CYCLOBENZAPRINE 10 MG TABLET PO PRN (19:59)
[2023-07-04] MEDS ORDERED: GABAPENTIN 300 MG CAPSULE PO SCH (21:00)
[2023-07-05] VITALS: BP 121/77
[2023-07-05 03:59] VITALS: BP 121/55
--- NOTE | 2023-07-05 05:28 | Progress Note ---
Subjective Date Seen by a Provider: Jul 05, 2023 Time Seen by a Provider: 12:00 Subjective/Events-last exam Patient doing really well Ready for discharge Labs stable Review of Systems Musculoskeletal: leg pain Objective Exam Last Set of Vital Signs Vital Signs Date Time Temp Pulse Resp B/P (MAP) Pulse Ox O2 Delivery O2 Flow Rate FiO2 07/05/23 03:59 36.8 96 20 121/55 (77) 94 Room Air Capillary Refill : Less Than 3 Seconds I&O Intake and Output 07/05/23 00:00 Intake Total 2340 ml Output Total 650 ml Balance 1690 ml Intake Oral 1540 ml IV Total 800 ml Output Urine Total 650 ml # Voids 6 # Bowel Movements 1 General: Alert, Oriented X3, Cooperative, No Acute Distress Lungs: Clear to Auscultation, Normal Air Movement Heart: Regular Rate, Normal S1, Normal S2, No Murmurs Psych/Mental Status: Mental Status NL, Mood NL Results Lab Laboratory Tests 07/04/23 11:00: Glucometer 197H 07/04/23 15:43: Glucometer 171H 07/04/23 20:30: Glucometer 213H Assessment/Plan Assessment/Plan Assess & Plan/Chief Complaint Assessment: Right hip osteoarthritis Current everyday smoker Diabetes, non-insulin dependent Asthma Bilateral loss of vision Plan: Discharge home ADORE COX DO Jul 05, 2023 05:28
[2023-07-05 05:41] LABS: BASOPHILS # (AUTO) 0.1 10^3/uL (0.0-0.1); BASOPHILS % (AUTO) 1 % (0-10); EOSINOPHILS # (AUTO) 0.2 10^3/uL (0.0-0.3); EOSINOPHILS % (AUTO) 1 % (0-10); HEMATOCRIT 34 % (35-52); HEMOGLOBIN 11.2 g/dL (11.5-16.0); LYMPHOCYTES % (AUTO) 11 % (12-44); MEAN CORPUSCULAR HEMOGLOBIN 31 pg (25-34); MEAN CORPUSCULAR HGB CONC 33 g/dL (32-36); MEAN CORPUSCULAR VOLUME 95 fL (80-99); MONOCYTES # (AUTO) 1.3 10^3/uL (0.0-1.0); MONOCYTES % (AUTO) 7 % (0-12); NEUTROPHILS # (AUTO) 15.5 10^3/uL (1.8-7.8); NEUTROPHILS % (AUTO) 81 % (42-75); PLATELET COUNT 405 10^3/uL (130-400); WHITE BLOOD COUNT 19.2 10^3/uL (4.3-11.0)
[2023-07-05 06:07] LABS: ALBUMIN 3.4 GM/DL (3.2-4.5); BILIRUBIN,TOTAL 0.6 MG/DL (0.1-1.0); CALCIUM 10.4 MG/DL (8.5-10.1); CREATININE SERUM 0.73 MG/DL (0.60-1.30); POTASSIUM 3.8 MMOL/L (3.6-5.0); TOTAL PROTEIN 6.7 GM/DL (6.4-8.2)
[2023-07-05] MEDS: MULTIVIT W/MINERALS TAB (THERAGRAN M) PO SCH (06:11)
[2023-07-05] MEDS: inSUlin ASPART 1 UNIT/0.01 ML (PER UNIT) SC SCH ×2 (06:11→11:53)
[2023-07-05 06:16] LABS: LYMPHOCYTES % (MANUAL) 13 %; NEUTROPHILS % (MANUAL) 80 %
[2023-07-05 06:17] LABS: MONOCYTES % (MANUAL) 7 %; RBC MORPH NORMAL
[2023-07-05] MEDS ORDERED: GLIMEPIRIDE 2 MG TABLET PO SCH (07:00)
[2023-07-05 07:48] VITALS: BP 145/74
[2023-07-05] MEDS: DOCUSATE SODIUM 100 MG CAPSULE PO SCH (08:10)
[2023-07-05] MEDS: HYDROcodone/ACETAMINOPHEN 10/325 TABLET PO PRN (08:10)
[2023-07-05] MEDS: CELECOXIB 100 MG CAPSULE PO SCH (08:10)
[2023-07-05] MEDS: ASPIRIN enteric coated 81MG TABLET PO SCH (08:10)
[2023-07-05] MEDS ORDERED: CYCL10TA25 PO (08:17)
[2023-07-05] MEDS ORDERED: ASPI-1238 PO (08:17)
[2023-07-05] MEDS ORDERED: ACHYD1T PO (08:17)
--- NOTE | 2023-07-05 08:20 | D/C HH Face to Face Order ---
D/C Face to Face Orders Instructions for Patient [facility], Patient Instructions/FollowUp: WBAT on Right Leg. Walker for assistance. Posterior dislocation precautions. Dry dressing to daily to site; keep incision site dry. F/U with Dr. Salvador Echevarria in 2 weeks from date of surgery. Physician to follow Patient: Salvador Echevarria Discharge Diet for Home: ADA Diet Patient Data-Allergies,Ht & Wt Patient Allergies: Coded Allergies: No Known Drug Allergies (Unverified , 06/26/23) Height (Feet): 5 Height (Inches): 3.00 Weight (Pounds): 230 Weight (Ounces): 0.0 Home Health Need/Face to Face Date of Face to Face: Jul 05, 2023 Clinical Findings: Muscle weakness, Pain with ambulation I have seen Pt hxxb-th-wcen: Yes Discharged To: Home Diagnosis/Conditions: Right Hip Primary Osteoarthritis s/p POLLY Patient is Homebound due to: Muscle weakness, Pain w/ambulation Homebound Status Due to the above stated illness, injury or surgical procedure (medical condition or diagnosis) and associated clinical findings, the patient is homebound because of his/her inability to leave home except with aid of a supportive device and/or person AND leaving the home requires a considerable and taxing effort or is medically contraindicated. Pt req the following assistanc: Walker Home Health Nursing Orders Home Health Services Order: Physical Therapy-Evaluate & Treat Home Health Infusion Therapy Line Start Date: Jul 03, 2023 Therapy Orders Therapy Orders: Physical Therapy Therapy Specific Orders: Gait training, Increase strength/endurance, Restore ROM Certify Stmt I certify that this patient is under my care and that I, a nurse practitioner or a physician; a hospital administrative assistant working with me, had a face to face encounter that - meets the physician face to face encounter requirements with this patient as dated. SALVADOR ECHEVARRIA MD Jul 05, 2023 08:20
--- NOTE | 2023-07-05 08:23 | Discharge Summary ---
Discharge Summary Hospital Course Hospital Course Date of Admission: 07/03/23 Admission Diagnosis : Right Hip Primary Osteoarthritis Family Physician/Provider: Twan Otero DO Date of Discharge: 07/05/23 Discharge Diagnosis: [Right Hip Primary Osteoarthritis s/p POLLY ] Hospital Course: [On 07/05/23, underwent right total hip arthroplasty. Tolerated the procedure well and was admitted to the regular floor. Began therapy on the day of surgery. Had some difficulty with pain control. Started mechanical DVT prophylaxis. On POD #1, made some progress with therapy. Started chemical DVT prophylaxis. Arrangements were made for home health. On POD #2, was transitioning positions independently and ambulating 100'; ready for home with home health therapy. ] Labs and Pending Lab Test: Laboratory Tests 07/04/23 11:00: Glucometer 197H 07/04/23 15:43: Glucometer 171H 07/04/23 20:30: Glucometer 213H 07/05/23 05:22: White Blood Count 19.2H, Red Blood Count 3.63L, Hemoglobin 11.2L, Hematocrit 34L , Mean Corpuscular Volume 95, Mean Corpuscular Hemoglobin 31, Mean Corpuscular Hemoglobin Concent 33, Red Cell Distribution Width 14.0, Platelet Count 405H, Mean Platelet Volume 10.0, Immature Granulocyte % (Auto) 1, Neutrophils (%) (Auto) 81H, Lymphocytes (%) (Auto) 11L, Monocytes (%) (Auto) 7, Eosinophils (%) (Auto) 1, Basophils (%) (Auto) 1, Neutrophils # (Auto) 15.5H, Lymphocytes # (Auto) 2.0, Monocytes # (Auto) 1.3H, Eosinophils # (Auto) 0.2, Basophils # (Auto) 0.1, Immature Granulocyte # (Auto) 0.1, Neutrophils % (Manual) 80, Lymphocytes % (Manual) 13, Monocytes % (Manual) 7, Blood Morphology Comment NORMAL, Sodium Level 139, Potassium Level 3.8, Chloride Level 108H, Carbon Dioxide Level 22, Anion Gap 9, Blood Urea Nitrogen 9, Creatinine 0.73, Estimat Glomerular Filtration Rate 93, BUN/Creatinine Ratio 12, Glucose Level 174H, Calcium Level 10.4H, Corrected Calcium 10.9H, Total Bilirubin 0.6, Aspartate Amino Transf (AST/SGOT) 13, Alanine Aminotransferase (ALT/SGPT) 11, Alkaline Phosphatase 51, Total Protein 6.7, Albumin 3.4 07/05/23 05:40: Glucometer 175H Home Meds Active HYDROcodone/APAP 10/325 TABLET (Acetaminophen/Hydrocodone Bitart) 1 Ea Tab 1 Ea PO Q4H PRN 7 Days Aspirin EC (Aspirin) 81 Mg Tablet.dr 81 Mg PO BID WITH MEALS 35 Days Cyclobenzaprine HCl 10 Mg Tablet 5 Mg PO TID PRN 10 Days Reported Glimepiride 2 Mg Tablet 2 Mg PO DAILY Metformin HCl ER (Metformin HCl) 500 Mg Tab.er.24 1,000 Mg PO DAILY TAKES 2 (500MG) TABS Amlodipine Besylate 10 Mg Tablet 10 Mg PO DAILY Hydrocodone-Acetamin 7.5-325 (Hydrocodone/Acetaminophen) 7.5 Mg-325 Mg Tablet 1 Each PO Q8H PRN Metoprolol Succinate 25 Mg Tab.er.24h 25 Mg PO DAILY Lisinopril 40 Mg Tablet 40 Mg PO DAILY Ventolin Hfa (Albuterol Sulfate) 90 Mcg Hfa.aer.ad 2 Puff IH Q4H PRN Assessment/Pt Instructions WBAT on Right Leg. Walker for assistance. Posterior dislocation precautions. Dry dressing to daily to site; keep incision site dry. F/U with Dr. Salvador Echevarria in 2 weeks from date of surgery. Discharge Instructions Discharge Diet: ADA Diet Discharge Physical Examination Vital Signs Vital Signs Date Time Temp Pulse Resp B/P (MAP) Pulse Ox O2 Delivery O2 Flow Rate FiO2 07/05/23 07:48 36.9 98 20 145/74 (97) 93 Room Air Extremity: Other (Right Hip: Dressing C/D/I, +DF of ankle, no s/s of DVT) Allergies: Coded Allergies: No Known Drug Allergies (Unverified , 06/26/23) Discharge Summary Date of Admission Date of Discharge SALVADOR ECHEVARRIA MD Jul 05, 2023 08:23
[2023-07-05] MEDS ORDERED: amLODIPine 10 MG TABLET PO SCH (09:00)
--- NOTE | 2023-07-05 10:59 | Occupational Ther Daily Note ---
OT Current Status-Daily Note Subjective Resting in bed, completed breakfast, agreeable to OT. Pain Numeric Pain Scale: 5-Moderate Pain (had pain medication at about 8:00) Mental Status/Objective Patient Orientation: Person, Place, Time, Situation ADL-Treatment Ambulation from bed to bathroom w/ FWW, sponge bath on toilet w/ set up and OT assist LE below knees. Full body dressing w/ tools and verbal step by step instruction, CGA for transfers Therapy Code Descriptions/Definitions Functional [place] Measure: 0=Not Assessed/NA 4=Minimal Assistance 1=Total Assistance 5=Supervision or Setup 2=Maximal Assistance 6=Modified [place] 3=Moderate Assistance 7=Complete IndependenceSCALE: Activities may be completed with or without assistive devices. 4-Pyozbnjqvz-sfydwpz completes the activity by him/herself with no assistance from a helper. 5-Set-up or Clean-up Assistance-helper sets up or cleans up; patient completes activity. [place] assists only prior to or following the activity. 4-Supervision or Touching Assistance-helper provides verbal cues and/or touching/steadying and/or contact guard assistance as patient completes activity. Assistance may be provided throughout the activity or intermittently. 3-Partial/Moderate Assistance-helper does LESS THAN HALF the effort. [place] lifts, holds or supports trunk or limbs, but provides less than half the effort. 2-Substantial/Maximal Assistance-helper does MORE THAN HALF the effort. [place] lifts or holds trunk or limbs and provides more than half the effort. 2-Alxiusocv-nrgxcp does ALL the effort. Patient does none of the effort to complete the activity. Or, the assistance of 2 or more helpers is required for the patient to complete the activity. If activity was not attempted, code reason: 7-Patient Refused. 9-Not Applicable-not attempted and the patient did not perform the activity before the current illness, exacerbation or injury. 10-Not Attempted due to Environmental Limitations-(lack of equipment, weather restraints, etc.). 88-Not Attempted due to Medical Conditions or Safety Concerns. Eating (QC): 6 Oral Hygiene (QC): 5 (standing at sink w/ FWW) Bathing Location: L Arm, R Arm, L Upper Leg, R Upper Leg, Chest, Abdomen, Buttocks, Perineal Area Shower/Bathe Self (QC): 4 Upper Body Dressing (QC): 5 (Pullover dress and bra) Lower Body Dressing (QC): 4 (regular undergarments) On/Off Footwear: 4 Toileting Hygiene (QC): 5 Toilet Transfer (QC): 4 Education OT Patient Education: Correct positioning, Modified ADL techniques, Progress toward Goal/Update tx plan, Purpose of tx/functional activities, Reviewed precautions, Rehab process, Safety issues, Transfer techniques, Use of adapted equipment Teaching Recipient: Patient Teaching Methods: Demonstration, Discussion Response to Teaching: Verbalize Understanding, Reinforcement Needed OT Canned Food Reconditioning Inspector Goals Group Home Goals Eating (QC): 6 Oral Hygiene (QC): 6 Toileting Hygiene (QC): 6 Shower/Bathe Self (QC): 6 Upper Body Dressing (QC): 6 Lower Body Dressing (QC): 6 On/Off Footwear (QC): 6 1=Demonstrate adherence to instructed precautions during ADL tasks. 2=Patient will verbalize/demonstrate understanding of assistive devices/modifications for ADL. 3=Patient will improve strength/tolerance for activity to enable patient to perform ADL's. OT Education/Plan Problem List/Assessment Assessment: Decreased Activ Tolerance, Impaired I ADL's, Impaired Self-Care Skills Discharge Recommendations Plan/Recommendations: Continue POC Equpiment Recommendations-D/C: Hip Kit Treatment Plan/Plan of Care Treatment,Training & Education: Yes Patient would benefit from OT for education, treatment and training to promote independence in ADL's, mobility, safety and/or upper extremity function for ADL's. Plan of Care: ADL Retraining, Caregiver Training, Concurrent Therapy, Functional Mobility, Group Exercise/Act as Ind, UE Funct Exercise/Act Treatment Duration: Jul 07, 2023 Frequency: 3 times per week (3-5 times per week) Estimated Hrs Per Day: .25 hour per day Agreement: Yes Rehab Potential: Fair Resting in recliner following OT session, prepared for PT, all needs met Time Start Time: 09:00 Stop Time: 09:27 DATE: Jul 05, 2023 Total Time Billed (hr/min): 27 Billed Treatment Time ADL 27 min ALEXANDER DENNISON OT Jul 05, 2023 10:59
--- NOTE | 2023-07-05 11:21 | Physical Therapy Daily Note ---
PT Daily Note-Current Subjective Patient sitting in chair upon PT arrival, agreeable to treatment. Rates pain at 5-6/10 in right hip. Pain Section J - Health Conditions 1. Rarely or not at all 2. Occasionally 3. Frequently 4. Almost constantly 8. Unable to answer Pain Effect on Sleep: 2 Pain Interference with Therapy: 2 Pain Interference w/Day-to-Day: 2 Transfers SCALE: Activities may be completed with or without assistive devices. 1-Oqklbswdmb-lqqhboa completes the activity by him/herself with no assistance from a helper. 5-Set-up or Clean-up Assistance-helper sets up or cleans up; patient completes activity. [place] assists only prior to or following the activity. 4-Supervision or Touching Assistance-helper provides verbal cues and/or touching/steadying and/or contact guard assistance as patient completes activity. Assistance may be provided throughout the activity or intermittently. 3-Partial/Moderate Assistance-helper does LESS THAN HALF the effort. [place] lifts, holds or supports trunk or limbs, but provides less than half the effort. 2-Substantial/Maximal Assistance-helper does MORE THAN HALF the effort. [place] lifts or holds trunk or limbs and provides more than half the effort. 8-Mnvxysaha-mswlvg does ALL the effort. Patient does none of the effort to complete the activity. Or, the assistance of 2 or more helpers is required for the patient to complete the activity. If activity was not attempted, code reason: 7-Patient Refused. 9-Not Applicable-not attempted and the patient did not perform the activity before the current illness, exacerbation or injury. 10-Not Attempted due to Environmental Limitations-(lack of equipment, weather restraints, etc.). 88-Not Attempted due to Medical Conditions or Safety Concerns. Roll Left & Right (QC): 3 Sit to Lying (QC): 3 Lying to Sitting/Side of Bed(Q: 3 Sit to Stand (QC): 4 Chair/Ocn-po-Atysr Xfer(QC): 4 Toilet Transfer (QC): 4 Weight Bearing Right Lower Extremity: Right Weight Bearing/Tolerated Left Lower Extremity: Left Full Weight Bearing Gait Training Does the Patient Walk?: Yes Distance: 250' Walk 10 feet (QC): 4 Walk 50 ft with 2 Turns(QC): 4 Walk 150 ft (QC): 4 Gait Persons Needed: 1 Gait Assistive Device: FWW Stair Training Stair Training: Handrails/: 2 handrails #of Steps: 4 1 Step (curb) (QC): 4 4 Steps (QC): 4 Stairs: Pattern: Step to Assessment Current Status: Fair Progress Patient tolerated treatment fair. She performs all observed transfers with SBA. Patient ambulates 250 feet with FWW, with SBA and verbal cues with 3 standing rest breaks. Patient ascends/descends 4 steps with 2 handrails with CGA. Patient ambulates back to room. Patient in chair post treatment with all needs met, nursing notified, call light in reach. PT Pellet Mill Operator Goals Snf Goals PT Snf Goals Time Frame: Jul 22, 2023 Roll Left & Right (QC): 6 Sit to Lying (QC): 6 Lying-Sitting on Side/Bed(QC): 6 Sit to Stand (QC): 6 Chair/Igs-dl-Dckpd Xfer(QC): 6 Toilet Transfer (QC): 6 Walk 10 feet (QC): 6 Walk 50ft with 2 Turns (QC): 6 Walk 150 ft (QC): 6 PT Plan Treatment/Plan Treatment Plan: Continue Plan of Care Treatment Plan: Bed Mobility, Education, Functional Activity Allison, Functional Strength, Gait, Safety, Therapeutic Exercise, Transfers Treatment Duration: Jul 22, 2023 Frequency: 11 times per week Estimated Hrs Per Day: .5 hour per day Safety Risks/Education Patient Education: Gait Training, Transfer Techniques, Steps Teaching Recipient: Patient Teaching Methods: Demonstration, Discussion Response to Teaching: Verbalize Understanding, Return Demonstration Time Time In: 949 Time Out: 1005 DATE: Jul 05, 2023 Total Billed Treatment Time: 16 Total Billed Treatment Visit, BARRY MUNOZ PT Jul 05, 2023 11:21
[2023-07-05 11:22] VITALS: BP 101/63
[2023-07-05] MEDS: ACETAMINOPHEN 500 MG TABLET PO PRN (11:52)
[2023-07-05 13:29] VITALS: BP 101/63
== END 2023-07-05 13:37 | disposition home health service (06) ==
LOC: SDC 06:01 → EDSTATUS 07:30 → 4TH 10:25 → SDC 07-05 13:37
PROVIDERS: ATTEND Orthopaedic Surgery
DX: M16.11 Unilateral primary osteoarthritis, right hip (principal); E11.9 Type 2 diabetes mellitus without complications; H54.3 Unqualified visual loss, both eyes; J45.909 Unspecified asthma, uncomplicated; E66.01 Morbid (severe) obesity due to excess calories; F17.210 Nicotine dependence, cigarettes, uncomplicated; Z68.38 Body mass index [BMI] 38.0-38.9, adult; Z79.84 Long term (current) use of oral hypoglycemic drugs
CPT/HCPCS: 36415; 72170; 80053; 82947; 85007; 85027; 94664

== ENCOUNTER → 2023-07-18 | Outpatient (CLI) | payer MEDICARE, MEDICAID ==
[~2023-07-18] MED LIST changes: +ACHYD1T PO; +AMLO-251 PO; +ASPI-1238 PO; +CYCL10TA25 PO; +GLIM2TAB4 PO; +METF-478 PO
== END ==
LOC: ORTHO 09:07
PROVIDERS: ATTEND Orthopaedic Surgery
DX: Z47.89 Encounter for other orthopedic aftercare (principal)

== ENCOUNTER → 2023-08-08 | Outpatient (CLI) | payer MEDICARE, MEDICAID ==
--- NOTE | 2023-08-08 21:08 | Diagnostic Imaging Report ---
EXAMINATION: Right hip unilateral 2 or 3 views (w/pelvis when done) HISTORY: Follow-up total hip replacement COMPARISON: 06/15/2023 FINDINGS: There is a total hip arthroplasty on the right which appears intact with no evidence for loosening. No fractures. IMPRESSION: Uncomplicated postoperative findings. Dictated by: Dictated on workstation # [id number]
== END ==
LOC: ORTHO 11:12
PROVIDERS: ATTEND Orthopaedic Surgery
DX: Z47.89 Encounter for other orthopedic aftercare (principal); Z96.641 Presence of right artificial hip joint
CPT/HCPCS: 73502

== ENCOUNTER → 2023-09-06 | Outpatient (CLI) | payer MEDICARE, MEDICAID | LOC: ORTHO 10:42 | PROVIDERS: ATTEND Orthopaedic Surgery | DX: Z47.89 Encounter for other orthopedic aftercare (principal) ==

== ENCOUNTER 2023-10-06 10:45 | Emergency (ER) | payer MEDICARE, MEDICAID ==
[~2023-10-06] VITALS: Ht 160 cm; Wt 88.0 kg
[2023-10-06] MEDS ORDERED: OXYC1TAB87 PO (11:32)
--- NOTE | 2023-10-06 11:32 | ED General ---
General Chief Complaint: General Problems/Pain Stated Complaint: LOWER BODY PAIN | NECK PAIN Nursing Triage Note: PT AMBULATE TO ROOM FT2 WITHOUT DIFFICULTY WITH C/O CHRONIC GENERALIZED BODY PAIN. PT REPORTS THAT HER FORMER PCP AND HER NEW PCP AT [facility] IS NOT GIVING HER STONG ENOUGH PAIN MEDICINE. PT REPORTS HAVING AN APPT WITH PCP ON 10/17/23 AND IS WANTING STRONGER PAIN MEDS. PT REPORTS TAKING HYDROCODONE 7.5MG AT HOME WITHOUT RELIEF. PT REPORTS SHE HAS NOT BEEN SLEEPING WELL DUE TO PAIN. Source of Information: Patient Exam Limitations: No Limitations (STAN ZAMORA) History of Present Illness Date Seen by Provider: Oct 06, 2023 Time Seen by Provider: 11:29 Initial Comments Patient is a 62-year-old female with a history of chronic pain who presents ED for pain. She states she has a history of fibromyalgia, arthritis, spondylosis who presents the ED for generalized pain. She states she has pain in her hip her knees her back or neck. Similar type pain that she has been experiencing for several years. She does take hydrocodone 7.5 mg without much improvement. Currently on amitriptyline without much improvement. She statesshe is having difficulty getting her pain under control. She does have a follow-up on 17 October. She denies of any chest pain, shortness of breath, cough, nausea, vomiting, diarrhea, dysuria, bowel or urine incontinence, saddle paresthesia, EXTR weakness. She does use a cane. She is having difficulty sleeping and wanting to sleep. (STAN ZAMORA) Allergies and Home Medications Allergies Coded Allergies: No Known Drug Allergies (Unverified , 06/26/23) Patient Home Medication List Home Medication List Reviewed: Yes (STAN ZAMORA) Albuterol Sulfate (Ventolin Hfa) 90 Mcg Hfa.aer.ad, 2 PUFF IH Q4H PRN for SHORTNESS OF BREATH, (Reported) Entered as Reported by: RENATA LEO on 03/27/19 1306 Amlodipine Besylate (Amlodipine Besylate) 10 Mg Tablet, 10 MG PO DAILY, (Reported) Entered as Reported by: BRYNN HUANG on 07/04/23 1103 Aspirin (Aspirin EC) 81 Mg Tablet.dr, 81 MG PO BID WITH MEALS Prescribed by: TERE GREY MD on 07/05/23 08 Cyclobenzaprine HCl (Cyclobenzaprine HCl) 10 Mg Tablet, 5 MG PO TID PRN for MUSCLE SPASMS Prescribed by: TERE GREY MD on 07/05/23816 Glimepiride (Glimepiride) 2 Mg Tablet, 2 MG PO DAILY, (Reported) Entered as Reported by: BRYNN HUANG on 07/04/23 1109 Hydrocodone Bit/Acetaminophen (HYDROcodone/APAP 10/325 TABLET) 1 Ea Tab, 1 EA PO Q4H PRN for PAIN-MODERATE (5-7) Prescribed by: TERE GREY MD on 07/05/23816 Lisinopril (Lisinopril) 40 Mg Tablet, 40 MG PO DAILY, (Reported) Entered as Reported by: RENATA LEO on 03/27/19 1306 Metformin HCl (Metformin HCl ER) 500 Mg Tab.er.24, 1,000 MG PO DAILY, (Reported) Entered as Reported by: BRYNN HUANG on 07/04/23 1103 Methocarbamol (Methocarbamol) 500 Mg Tablet, 500 MG PO Q6-8HR Prescribed by: IVY BEE on 10/06/23 1133 Metoprolol Succinate (Metoprolol Succinate) 25 Mg Tab.er.24h, 25 MG PO DAILY, (Reported) Entered as Reported by: CONSUELO JOHNS on 06/26/23 1057 Oxycodone HCl/Acetaminophen (Percocet 5-325 mg Tablet) 1 Each Tablet, 1 TAB PO Q4H Prescribed by: IVY BEE on 10/06/23 1133 Review of Systems Review of Systems Constitutional: No chills, No diaphoresis, No malaise, No weakness EENTM: No hearing loss, No ear pain, No blurred vision, No double vision Respiratory: No cough, No dyspnea on exertion Cardiovascular: No chest pain Gastrointestinal: No abdominal pain, No diarrhea, No nausea, No vomiting Genitourinary: No decreased output, No discharge, No dysuria, No frequency, No hematuria Musculoskeletal: No back pain; joint pain, muscle pain, muscle stiffness Skin: No change in color, No change in hair/nails (STAN ZAMORA) All Other Systems Reviewed Negative Unless Noted: Yes (STAN ZAMORA) Past Gvejrri-Kkmjwh-Qgmjaa Hx Patient Social History Tobacco Use?: Yes Tobacco type used: Cigarettes Smoking Status: Current Everyday Smoker Smokeless Tobacco Frequency: Never a User Use of E-Cig and/or Vaping dev: No Use of E-Cig and/or Vaping Dustin: Never a User Substance use?: No Alcohol Use?: No Pt feels they are or have been: No (STAN ZAMORA) Immunizations Up To Date First/Initial COVID19 Vaccinat: 2020 Second COVID19 Vaccination Panfilo: 2020 Third COVID19 Vaccination Date: 2020 (STAN ZAMORA) Seasonal Allergies Seasonal Allergies: Yes (STAN ZAMORA) Past Medical History Surgery/Hospitalization HX: RIGHT MENISCUS REPAIR, X2 CSECTION, CHOLEY, HYSTER, DM, HEP Surgeries: Yes (COLONOSCOPY, D&C, LIVER BIOPSY, R KNEE SCOPE) Section, Gallbladder, Hysterectomy, Orthopedic Respiratory: Yes Asthma Currently Using CPAP: No Currently Using BIPAP: No Cardiac: Yes High Cholesterol, Hypertension Neurological: Yes (BELLS PALSY) Concussion Reproductive Disorders: No Female Reproductive Disorders: Ovarian Cyst 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 History: Hysterectomy Sexually Transmitted Disease: No Genitourinary: No Gastrointestinal: Yes Gastroesophageal Reflux, Gall Bladder Disease Musculoskeletal: Yes (HIP OSTEOARTHRITIS) Arthritis Endocrine: Yes Diabetes, Non-Insulin dep HEENT: Yes (GLASSES, DENTURES) Loss of Vision: Bilateral Hearing Impairment: Denies Cancer: No Psychosocial: Yes Anxiety Integumentary: No Blood Disorders: Yes (HEP C) Adverse Reaction/Blood Tranf: No (STAN ZAMORA) Physical Exam Vital Signs Vital Signs - First Documented 10/06/23 10/06/23 10:56 11:42 Temp 36.9 Pulse 100 Resp 18 B/P (MAP) 158/96 (116) Pulse Ox 97 O2 Delivery Room Air (AJAY BRYSON MD) Vital Signs Capillary Refill : Less Than 3 Seconds (STAN ZAMORA) Height, Weight, BMI Height: 5'3.00" Weight: 230lbs. 0.0oz. [id number]; 34.00 BMI Method:Stated General Appearance: No Apparent Distress, WD/WN Eyes: Bilateral Eye Normal Inspection, Bilateral Eye PERRL, Bilateral Eye EOMI HEENT: PERRL/EOMI, TMs Normal, Normal ENT Inspection, Pharynx Normal Neck: Full Range of Motion, Normal Inspection, Non Tender, Supple Respiratory: Chest Non Tender, Lungs Clear, Normal Breath Sounds, No Accessory Muscle Use, No Respiratory Distress Cardiovascular: Regular Rate, Rhythm, No Edema, No Gallop, No JVD, No Murmur Gastrointestinal: Normal Bowel Sounds, No Organomegaly, No Pulsatile Mass, Non Tender Back: Normal Inspection, No CVA Tenderness, No Vertebral Tenderness Extremity: Normal Capillary Refill, Normal Inspection, Normal Range of Motion, Non Tender Neurologic/Psychiatric: Alert, Oriented x3, No Motor/Sensory Deficits, Normal Mood/Affect, supervisor billposting II-XII Norm as Tested Skin: Normal Color, Warm/Dry (STAN ZAMORA) Progress/Results/Core Measures Suspected Sepsis SIRS Temperature: Pulse: 100 Respiratory Rate: 18 Blood Pressure 158 /96 Mean: 116 (STAN ZAMORA) Results/Orders Vital Signs/I&O 10/06/23 10/06/23 10:56 11:42 Temp 36.9 36.4 Pulse 100 73 Resp 18 18 B/P (MAP) 158/96 (116) 141/85 Pulse Ox 97 O2 Delivery Room Air Room Air (AJAY BRYSON MD) Vital Signs/I&O Capillary Refill : Less Than 3 Seconds (STAN ZAMORA) Blood Pressure Mean: 116 Departure Communication (PCP) Reviewed previous ER visits, H&P, lab testing. Patient with a history of arthritis, fibromyalgia, chronic pain. Differential diagnosis chronic pain, arthritis, fibromyalgia. Currently taking hydrocodone 7.5 mg. She states this has not helped with her pain. Difficulty sleeping. She is requesting something different. She has a scheduled follow-up on the . She has seen pain s pecialist here but states it did not help. She has no recent falls. No history of rheumatoid arthritis, lupus. She has no chest pain or shortness of breath. This appears to be chronic pain that she is experiencing today. We will provide a few days worth of oxycodone and Robaxin. Discussed with patient that she needs a follow-up her primary care physician as we do not manage pain here in the ER. She states she is in physical therapy. I suggest following up with the pain specialist. Provided other conservative measures she can do at home. If any worsening symptoms to return back to ED. patient agrees with plan of action. (STAN ZAMORA) Impression Primary Impression: Chronic pain Disposition: 01 HOME, SELF-CARE Condition: Stable Departure-Patient Inst. Decision time for Depature: 11:31 (STAN ZAMORA) Referrals: BRYNN HOLT DO (PCP/Family) Primary Care Physician Patient Instructions: CHRONIC PAIN Add. Discharge Instructions: Do not take hydrocodone with oxycodone. Robaxin for muscle pains. Follow-up your primary care physician for further evaluation. All discharge instructions reviewed with patient and/or family. Voiced understan rodrigo. Scripts Methocarbamol (Methocarbamol) 500 Mg Tablet 500 MG PO Q6-8HR for Back Pain, #20 TAB Prov: STAN ZAMORA 10/06/23 Oxycodone HCl/Acetaminophen (Percocet 5-325 mg Tablet) 1 Each Tablet 1 TAB PO Q4H for PAIN-MODERATE MDD 6 TABS, #6 TAB Prov: STAN ZAMORA 10/06/23 ATTENDING PHYSICIAN NOTE: I was physically present as attending physician in the emergency department during the care of this patient, but I was not directly involved in the decision making or delivery of care for this patient. (AJAY BRYSON MD) STAN ZAMORA Oct 06, 2023 11:32 AJAY BRYSON MD Oct 07, 2023 18:20
[2023-10-06] MEDS ORDERED: METH-731 PO (11:33)
[2023-10-06 11:42] VITALS: BP 141/85
== END 2023-10-06 11:42 | disposition home or self-care (01) ==
LOC: EDUNIT# 10:45 → ER 10:47
DX: G89.29 Other chronic pain (principal); F17.210 Nicotine dependence, cigarettes, uncomplicated; Z87.39 Personal history of other diseases of the musculoskeletal system and connective tissue; Z79.891 Long term (current) use of opiate analgesic
CPT/HCPCS: 99281

== ENCOUNTER → 2023-10-11 | Outpatient (CLI) | payer MEDICARE, MEDICAID ==
[~2023-10-11] MED LIST changes: +METH-731 PO; +OXYC1TAB87 PO
== END ==
LOC: ORTHO 11:38
PROVIDERS: ATTEND Orthopaedic Surgery
DX: Z47.89 Encounter for other orthopedic aftercare (principal)
CPT/HCPCS: 99213